=== PATIENT | female | born 1935 | race American Indian/Alaskan Native ===

== ENCOUNTER 2016-05-31 11:48 | Outpatient (CLI) | payer MEDICARE ==
[2016-05-31 12:22] LABS: Hematocrit 33.1 % (30.3-42.9); Mean Corpuscular HGB Conc 33 % (30-34); Mean Corpuscular Hemoglobin 28 pg (28-32); Mean Corpuscular Volume 85 fl (79-97); Platelet Count 280 K/mm3 (140-440); Red Blood Count 3.88 M/mm3 (3.65-5.03); Red Cell Distribution Width 17.3 % (13.2-15.2); White Blood Count 7.6 K/mm3 (4.5-11.0)
[2016-05-31 12:41] LABS: Albumin 3.8 g/dL (3.9-5); BUN/Creatinine Ratio 18.62; Calcium 8.2 mg/dL (8.4-10.2); Chloride 97.3 mmol/L (98-107); Phosphorous 4.1 mg/dL (2.5-4.5); Potassium 5.1 mmol/L (3.6-5.0)
== END 2016-05-31 11:49 | disposition home or self-care (01) ==
LOC: LAB 11:48
PROVIDERS: ATTEND Internal Medicine
DX: I12.9 Hypertensive chronic kidney disease with stage 1 through stage 4 chronic kidney disease, or unspecified chronic kidney disease (principal); N18.4 Chronic kidney disease, stage 4 (severe); B20 Human immunodeficiency virus [HIV] disease; E44.0 Moderate protein-calorie malnutrition; N06.1 Isolated proteinuria with focal and segmental glomerular lesions
CPT/HCPCS: 36415; 80048; 82040; 82306; 82570; 84100; 84156; 85027

== ENCOUNTER 2016-08-01 12:04 | Outpatient (CLI) | payer MEDICARE ==
[2016-08-01 12:24] LABS: Hematocrit 28.2 % (30.3-42.9); Hemoglobin 9.2 gm/dl (10.1-14.3)
[2016-08-01 12:43] LABS: Albumin 3.6 g/dL (3.9-5); BUN/Creatinine Ratio 19.75; Calcium 8.5 mg/dL (8.4-10.2); Chloride 97.6 mmol/L (98-107); Phosphorous 4.7 mg/dL (2.5-4.5); Potassium 4.7 mmol/L (3.6-5.0)
== END 2016-08-01 12:05 | disposition home or self-care (01) ==
LOC: LAB 12:04
PROVIDERS: ATTEND Internal Medicine Nephrology
DX: I12.9 Hypertensive chronic kidney disease with stage 1 through stage 4 chronic kidney disease, or unspecified chronic kidney disease (principal); N18.4 Chronic kidney disease, stage 4 (severe); D63.1 Anemia in chronic kidney disease; E87.2 Acidosis; E44.0 Moderate protein-calorie malnutrition
CPT/HCPCS: 36415; 80048; 82040; 82570; 84100; 84156; 85014; 85018

== ENCOUNTER 2016-09-06 11:55 | Day surgery (SDC) | payer MEDICARE ==
[2016-08-31 12:32] LABS: Hematocrit 22.2 % (30.3-42.9); Hemoglobin 7.5 gm/dl (10.1-14.3); Mean Corpuscular HGB Conc 34 % (30-34); Mean Corpuscular Hemoglobin 28 pg (28-32); Mean Corpuscular Volume 84 fl (79-97); Platelet Count 196 K/mm3 (140-440); Red Blood Count 2.65 M/mm3 (3.65-5.03); Red Cell Distribution Width 16.4 % (13.2-15.2); White Blood Count 5.9 K/mm3 (4.5-11.0)
--- NOTE | 2016-08-31 12:38 | Anesthesia Consultation ---
Anesthesia Consult and Med Hx Date of service: 08/31/16 - Airway Anesthetic Teeth Evaluation: Good, Dentures (upper) ROM Head & Neck: Adequate Mental/Hyoid Distance: Adequate Mallampati Class: Class II Intubation Access Assessment: Probably Good - Pulmonary Exam CTA: Yes - Cardiac Exam Cardiac Exam: RRR - Pre-Operative Health Status ASA Pre-Surgery Classification: ASA4 Proposed Anesthetic Plan: General - Pulmonary Hx Smoking: Yes (CIGARETTES 1 PPD X 62 YRS, QUIT 3) SOB: No COPD: Yes Home Oxygen Therapy: No Hx Sleep Apnea: No - Cardiovascular System Hx Hypertension: Yes (FOR 20+ YRS) Hx Coronary Artery Disease: Yes (stress test 04/2016 EF 36%, FIXED DEFECT IN APEX ) Hx Heart Attack/AMI: No Hx Angina: No Hx Percutaneous Transluminal Coronary Angioplasty (PTCA): No Hx Pacemaker: No Hx Internal Defibrillator: No Hx Valvular Heart Disease: Yes (MVP, CHF) - Central Nervous System Hx Seizures: Yes (X1 8 YRS AGO, UNKNOWN ETIOLOGY ) - Gastrointestinal Hx Gastroesophageal Reflux Disease: No - Endocrine Hx Renal Disease: Yes (chronic renal insufficiency) Hx End Stage Renal Disease: Yes Hx Cirrhosis: (abnormal liver fxn test) Hx Insulin Dependent Diabetes: No Hx Thyroid Disease: No Hx Hypothyroidism: No - Hematic Hx Anemia: Yes - Other Systems Hx Alcohol Use: No Hx Substance Use: No Hx Cancer: No - Additional Comments Anesthesia Medical History Comments: HIV+, CARDIAC CLEARANCE MONDAY PER PATIENT. RN TO GET NOTE.
[2016-08-31 12:57] LABS: BUN/Creatinine Ratio 18.29; Calcium 8.2 mg/dL (8.4-10.2); Chloride 102.5 mmol/L (98-107); Potassium 4.9 mmol/L (3.6-5.0)
[~2016-09-06 11:55] MED LIST: HEPARIN SUB-Q ONE; NACL 0.9% 1000 ML 1,000 ML IV SCH; PEPCID PO NR; ceFAZolin 2 GM in NACL 0.9% 100 ML IV NR
[2016-09-06] MEDS ORDERED: ANCEF/STERILE WATER 2 GM/20 ML 2 GM/20 ML SYRINGE IV NR (12:00)
[2016-09-06] MEDS ORDERED: ZEMURON IV ONE (12:20)
[2016-09-06] MEDS ORDERED: SUBLIMAZE ONE (12:20)
[2016-09-06] MEDS ORDERED: DIPRIVAN 10 MG/ML IV ONE (12:20)
[2016-09-06] MEDS ORDERED: ZOFRAN ONE ×2 (12:20→13:27)
[2016-09-06] MEDS ORDERED: XYLOCAINE MPF 2% ONE (12:20)
[2016-09-06] MEDS ORDERED: DECADRON ONE ×2 (12:20→13:27)
[2016-09-06] MEDS ORDERED: MARCAINE-EPI 0.25%-1:200,000 INFILTRATI ONE ×2 (12:29→13:45)
[2016-09-06] MEDS ORDERED: HEPARIN SUB-Q NR (12:45)
--- NOTE | 2016-09-06 13:16 | Anesthesia Day of Surgery ---
Anesthesia Day of Surgery - Day of Surgery Patient Examined: Yes Patient H&P Reviewed: Yes Patient is NPO: Yes
[2016-09-06] MEDS ORDERED: MARCAINE 0.25% INFILTRATI ONE (13:20)
[2016-09-06] MEDS ORDERED: NACL ONE (13:20)
[2016-09-06] MEDS ORDERED: NACL 0.9% 250ML 250 ML ONE (13:21)
[2016-09-06] MEDS ORDERED: HEPARIN 10,000 UNITS/10 ML ONE (13:21)
[2016-09-06] MEDS ORDERED: ROBINUL ONE ×2 (13:27→13:47)
[2016-09-06] MEDS ORDERED: NACL 0.9% IR ONE ×2 (13:45)
[2016-09-06] MEDS ORDERED: HEPARIN 10,000 UNITS/10 ML IR ONE (13:46)
[2016-09-06] MEDS ORDERED: NACL 0.9% 100 ML ONE (13:47)
[2016-09-06] MEDS ORDERED: NEOSTIGMINE ONE (13:47)
[2016-09-06] MEDS ORDERED: NEO SYNEPHRINE ONE (13:47)
[2016-09-06] MEDS ORDERED: NACL IRRIGATION ONE (13:49)
[2016-09-06] MEDS ORDERED: NACL 0.9% 250ML IR ONE (13:50)
[2016-09-06] MEDS ORDERED: AMIDATE IV ONE (13:58)
--- NOTE | 2016-09-06 14:38 | Post Operative Note ---
Pre-op diagnosis: End stage renal failure Post-op diagnosis: same Findings: Loop of small bowel adhesion to the midline , redundant omentum Procedure: Laparoscopic PD cath insertion, lysis small bowel adhesion, omentopexy Anesthesia: BRAXTON Surgeon: EDY WEEKS Estimated blood loss: minimal Pathology: none Condition: stable Disposition: PACU
--- NOTE | 2016-09-06 14:44 | Discharge Summary ---
Short Stay Discharge Plan Diet: regular Wound: keep clean and dry (PD cath flushing in dialysis unit on 09/09/2016) Follow up with: DIANA RUST MD [Primary Care Provider] - 7 Days Prescriptions: HYDROcodone/APAP 5-325 [[place] 5-325 mg TAB] 1 each PO Q4HR PRN #20 tablet PRN Reason: Pain Ondansetron [Zofran TAB] 4 mg PO Q8HR PRN #20 tablet PRN Reason: Nausea traMADol [Ultram 50 MG tab] 50 mg PO Q4HR PRN #20 tablet PRN Reason: Pain
[2016-09-06] MEDS: DILAUDID IV PRN ×2 (15:39→16:30)
--- NOTE | 2016-09-06 16:19 | Post Anesthesia Evaluation ---
- Post Anesthesia Evaluation Patient Participated: Yes Airway Patent: Yes Stable Respiratory Function: Yes Temp > 96.8F: Yes Pain Manageable: Yes Adequeate Hydration: Yes Anesthesia Complications: No Block Receding Appropriately: Not Applicable
[2016-09-06 17:10] VITALS: BP 127/59
--- NOTE | 2016-09-06 20:43 | Operative Report ---
PREOPERATIVE DIAGNOSES: End-stage renal failure, history of colectomy. POSTOPERATIVE DIAGNOSES: End-stage renal failure, small bowel adhesions and redundant omentum. OPERATIVE PROCEDURE: 1. Laparoscopic lysis of small bowel adhesions. 2. Laparoscopic omentopexy. 3. Laparoscopic peritoneal dialysis catheter insertion. ANESTHESIA: General endotracheal. SURGEON: Ezequiel Busby MD INDICATIONS: A 80-year-old female patient with end-stage renal failure and requests peritoneal dialysis. She has undergone laparoscopic colectomy several years ago for diverticulitis and I have done a cholecystectomy on her 2 to 3 years ago. FINDINGS: Loop of small bowel adherent in the midline from the previous colectomy. The length of adhesions approximately 3 to 4 cm. No large-bowel adhesions were evident. No ascites was noted. No abdominal wall hernia evident. The omentum was thin, but redundant dropping half way down to the pelvis. Liver showed evidence of mild congestion without any full blown evidence of cirrhosis or portal hypertension. DESCRIPTION OF PROCEDURE: After satisfactory induction of general endotracheal anesthesia, abdomen was prepped and draped. Abdominal wall skin was covered with an [place] occlusive drape. Right-sided mid abdominal incision was made and a Veress needle was inserted in the peritoneal cavity. After adequate carbon dioxide insufflation up to 15 mmHg, a 5 mm trocar was inserted. Through this a 5 mm 30-degree angle scope was placed and under direct visualization, right lower quadrant 5 mm and right upper quadrant 5 mm ports were placed. The small bowel adhesions were taken down using EndoShears sharp dissection without the use of any cautery. Attention was paid not to cause any serosal injury or through and through injury to the segment of the small bowel. Hemostasis was quite adequate. After taking down the adhesions, this segment was carefully inspected and milked up and down and no leakage of intestinal contents was noted. The omentum was deflected to the upper abdomen and below the left costal margin a small incision was made in the anterior axillary line and the suture passer needle with 0 Vicryl tie was inserted. Three ____ of omentum were passed through and the Vicryl tie was pulled up and the omentum was attached to the left upper quadrant. A 57 cm double cuffed coiled Tenckhoff catheter was soaked in saline solution for several centimeters. Site of insertion was measured on the abdominal wall and this was at the level of the umbilicus on the left side. After infiltrating local anesthetic, a 2 cm transverse incision was made. Subcutaneous tissue was divided. A small opening was made in the anterior rectus fascia. A step one trocar needle with sheath was inserted, counterpunctured inferiorly in the midline and visualizing through the laparoscope. The needle was removed. The sheath was dilated using a dilator under trocar. Trocar was removed. A catheter guide was passed through the catheter and the catheter was inserted under laparoscopic visualization. The coiled aspect of the catheter was placed over the bowel loops in the pelvis. The deeper cuff was placed between the parietal peritoneum and the anterior rectus fascia. Superficial cuff was placed in the subcutaneous plane and the catheter was brought out above and lateral to the main incision without any twist or kink. Titanium adapters and transistors were attached to the catheter. The catheter was flushed and aspirated and visualized through the laparoscope, was functioning well. About 150 mL of dilute heparin solution was instilled through the catheter and later it was flushed with 20 mL saline containing 5000 units. Desufflation was done and all the trocars were removed under direct visualization. No bleeding was noted at the trocar sites. The incisions were closed in layers with 3-0 Vicryl and 4-0 Vicryl. Bulky dressings were placed over the entrance and exit site and the tail end of the transistor was left outside to be flushed in the dialysis unit. She had minimal blood loss, tolerated the procedure well and transferred to postanesthesia care unit in satisfactory condition. JOB# [id number] DANAY/MAGGIE
== END 2016-09-06 17:23 | disposition home or self-care (01) ==
LOC: OR 11:55
PROVIDERS: ATTEND Surgery
DX: I13.2 Hypertensive heart and chronic kidney disease with heart failure and with stage 5 chronic kidney disease, or end stage renal disease (principal); N18.6 End stage renal disease; I50.9 Heart failure, unspecified; K66.0 Peritoneal adhesions (postprocedural) (postinfection); K66.8 Other specified disorders of peritoneum; F41.9 Anxiety disorder, unspecified; J44.9 Chronic obstructive pulmonary disease, unspecified; D64.9 Anemia, unspecified; I25.10 Atherosclerotic heart disease of native coronary artery without angina pectoris; Z90.49 Acquired absence of other specified parts of digestive tract; Z87.891 Personal history of nicotine dependence; Z79.899 Other long term (current) drug therapy; Z88.2 Allergy status to sulfonamides; Z88.1 Allergy status to other antibiotic agents; Z83.3 Family history of diabetes mellitus
CPT/HCPCS: 36415; 49324; 49326; 80048; 84132; 85027; 86850; 86900; 86901; C1750; J0690; J1100; J1170; J1644; J2370; J2405; J2704; J2710; J3010; J7030; J7050

== ENCOUNTER 2017-01-24 16:42 | Outpatient (CLI) | payer MEDICARE ==
--- NOTE | 2017-01-24 20:07 | Cat Scan Report ---
FINAL REPORT EXAM: CT ABDOMEN PELVIS WO CON HISTORY: ABDOMINAL PAIN, DIVERTICULOSIS TECHNIQUE: Serial axial images through the abdomen and pelvis with coronal and sagittal reconstruction. PRIORS: None. FINDINGS: The study is limited by lack of intravenous contrast. There is mild atelectasis in the lung bases. No pleural effusion is seen. Gallbladder is surgically absent. No focal hepatic lesion is identified. Pancreas appears normal. Spleen appears normal. The left adrenal gland appears slightly nodular which may indicate hyperplasia. Kidneys appear normal. Atherosclerotic changes are seen in the aorta. No aneurysmal dilatation is seen. Bladder is decompressed. No gross abnormality is seen in the uterus. Low-density free fluid is seen in the dependent portion of the pelvis. There is a peritoneal dialysis catheter coursing to the left lower quadrant. Scattered diverticula seen arising from the colon. There is not evidence of bowel obstruction. Appendix appears within normal limits. Surgical sequelae are seen in the right hip. There are degenerative changes in the spine. IMPRESSION: 1. Diverticulosis is noted. There is not definite evidence of acute diverticulitis. 2. Moderate amount of low-density free fluid is seen in the dependent portion of the pelvis. This is a nonspecific finding. It may be related to peritoneal dialysis. 3. Normal appearing appendix.
== END 2017-01-24 16:43 | disposition home or self-care (01) ==
LOC: CT 16:42
PROVIDERS: ATTEND Internal Medicine
DX: K57.81 Diverticulitis of intestine, part unspecified, with perforation and abscess with bleeding (principal); K57.30 Diverticulosis of large intestine without perforation or abscess without bleeding; J98.11 Atelectasis; I70.0 Atherosclerosis of aorta; Z90.49 Acquired absence of other specified parts of digestive tract
CPT/HCPCS: 74176

== ENCOUNTER 2017-02-13 01:41 | Emergency (ER) | payer MEDICARE ==
[2017-02-13 01:49] VITALS: BP 145/90
--- NOTE | 2017-02-13 03:41 | Emergency Department Report ---
ED Lower Extremity HPI - General Chief Complaint: Fall Stated Complaint: FALL Time Seen by Provider: 02/13/17 03:15 Source: EMS Mode of arrival: Stretcher Limitations: No Limitations - History of Present Illness Initial Comments: pt is a 81 y/o aaf with hx of HIV , htn, esrd who presents with medicare nurse for complaint of left wrist and ankle pain s/p glf at 3pm today pt denies loc denies other pain , pain now is described as 6/10 aching pain is relieved by rest pain is exacerbated by movement and palpation Complaint: ankle injury, other (left wrist ) Onset/Timin -: hour(s) Injury: Ankle: Left Type of Injury: inversion, other (twisting ) Place: home Severity scale (0 -10): 5 Improves With: rest Worsens With: movement, palpation Context: fall Associated Symptoms: swelling, able to partially bear weight. denies: numbness , tingling - Related Data Home Medications Medication Instructions Recorded Confirmed Last Taken Pravastatin Sodium [Pravastatin] 80 mg PO QHS 06/22/16 09/06/16 09/05/16 22:30 80mg amLODIPine [Norvasc] 10 mg PO DAILY 06/22/16 09/06/16 09/06/16 10:00 cloNIDine [Catapres] 0.2 mg PO QHS 06/22/16 09/06/16 09/05/16 22:30 hydrALAZINE [Apresoline TAB] 50 mg PO BID 06/22/16 09/06/16 09/06/16 10:00 100mg Abacavir [Ziagen TAB] 300 mg PO BID 06/25/16 09/06/16 09/04/16 22:30 Lisinopril [Zestril TAB] 20 mg PO QDAY 08/29/16 09/06/16 09/05/16 10:00 Previous Rx's Medication Instructions Recorded Last Taken Type Efavirenz [Sustiva] 600 mg PO DAILY #30 tablet 07/19/13 09/04/16 22:30 Rx lamiVUDine [Epivir] 150 mg PO DAILY #30 tablet 07/19/13 09/04/16 22:30 Rx 150mg Calcitriol [Rocaltrol] 0.5 mcg PO QDAY #30 capsule 05/26/16 09/05/16 10:00 Rx 0.5mg Calcium Carbonate [Tums] 1,000 mg PO BID #120 tablet 05/26/16 1 Week Ago Rx Carvedilol [Coreg] 6.25 mg PO BID #60 tablet 05/26/16 09/06/16 10:00 Rx Famotidine [Pepcid] 20 mg PO QDAY #30 tablet 05/26/16 09/05/16 10:00 Rx ISOSORBIDE MONOnitrate [Imdur ER] 30 mg PO QDAY #30 tablet 05/26/16 09/06/16 10: 00 Rx Ferrous Gluconate [Fergon 325 MG 325 mg PO QDAY #30 tablet 06/26/16 09/05/16 10: 00 Rx tab] HYDROcodone/APAP 5-325 [[place] 1 each PO Q4HR PRN #20 tablet 09/06/16 Unknown Rx 5-325 mg TAB] Ondansetron [Zofran TAB] 4 mg PO Q8HR PRN #20 tablet 09/06/16 Unknown Rx traMADol [Ultram 50 MG tab] 50 mg PO Q4HR PRN #20 tablet 09/06/16 Unknown Rx Acetaminophen [Tylenol Extra 1,000 mg PO QID PRN #60 tablet 02/13/17 Unknown Rx Strength] Cyclobenzaprine [Flexeril] 10 mg PO BID PRN #30 tablet 02/13/17 Unknown Rx Diclofenac Sodium [Voltaren] 1 applicator TP TID PRN #1 tube 02/13/17 Unknown Rx Allergies Allergy/AdvReac Type Severity Reaction Status Date / Time Sulfa (Sulfonamide Allergy Itching Verified 06/22/16 14:04 Antibiotics) sulfamethoxazole Allergy Itching Verified 08/29/16 11:11 [From Bactrim] trimethoprim [From Bactrim] Allergy Itching Verified 08/29/16 11:11 ED Review of Systems ROS: Stated complaint: FALL Other details as noted in HPI Constitutional: denies: chills, fever Eyes: denies: eye pain, eye discharge, vision change ENT: denies: ear pain, throat pain Respiratory: denies: cough, shortness of breath, wheezing Cardiovascular: denies: chest pain, palpitations Endocrine: no symptoms reported Gastrointestinal: denies: abdominal pain, nausea, diarrhea Genitourinary: denies: urgency, dysuria, discharge Musculoskeletal: arthralgia, myalgia Skin: denies: rash, lesions, change in color, change in hair/nails, pruritus Neurological: denies: headache, weakness, numbness, paresthesias, confusion, vertigo Psychiatric: denies: anxiety, depression ED Past Medical Hx - Past Medical History Previous Medical History?: Yes Hx Hypertension: Yes (FOR 20+ YRS) Hx Heart Attack/AMI: No Hx GERD: Yes Hx Renal Disease: Yes (chronic renal insufficiency) Hx Seizures: Yes (X1 8 YRS AGO, UNKNOWN ETIOLOGY ) Hx COPD: Yes Hx HIV: Yes (DX: [place] 2008) Additional medical history: Diverticulitis - Surgical History Past Surgical History?: Yes Hx Pacemaker: No Hx Internal Defibrillator: No Hx Cholecystectomy: Yes (07-25-13) Additional Surgical History: Colon resection 2012 (uncertain indication). right hip (ball and joint) - Social History Smoking Status: Former Smoker Substance Use Type: None - Medications Home Medications: Home Medications Medication Instructions Recorded Confirmed Last Taken Type Efavirenz [Sustiva] 600 mg PO DAILY #30 tablet 07/19/13 09/06/16 09/04/16 22:30 Rx lamiVUDine [Epivir] 150 mg PO DAILY #30 tablet 07/19/13 09/06/16 09/04/16 22:30 Rx 150mg Calcitriol [Rocaltrol] 0.5 mcg PO QDAY #30 capsule 05/26/16 09/06/16 09/05/16 10 :00 Rx 0.5mg Calcium Carbonate [Tums] 1,000 mg PO BID #120 tablet 05/26/16 09/06/16 1 Week Ago Rx Carvedilol [Coreg] 6.25 mg PO BID #60 tablet 05/26/16 09/06/16 09/06/16 10:00 Rx Famotidine [Pepcid] 20 mg PO QDAY #30 tablet 05/26/16 09/06/16 09/05/16 10:00 Rx ISOSORBIDE MONOnitrate [Imdur ER] 30 mg PO QDAY #30 tablet 05/26/16 09/06/16 10:00 Rx Pravastatin Sodium [Pravastatin] 80 mg PO QHS 06/22/16 09/06/16 09/05/16 22:30 History 80mg amLODIPine [Norvasc] 10 mg PO DAILY 06/22/16 09/06/16 09/06/16 10:00 History cloNIDine [Catapres] 0.2 mg PO QHS 06/22/16 09/06/16 09/05/16 22:30 History hydrALAZINE [Apresoline TAB] 50 mg PO BID 06/22/16 09/06/16 09/06/16 10:00 History 100mg Abacavir [Ziagen TAB] 300 mg PO BID 06/25/16 09/06/16 09/04/16 22:30 History Ferrous Gluconate [Fergon 325 MG 325 mg PO QDAY #30 tablet 06/26/16 09/06/16 10:00 Rx tab] Lisinopril [Zestril TAB] 20 mg PO QDAY 08/29/16 09/06/16 09/05/16 10:00 History HYDROcodone/APAP 5-325 [[place] 1 each PO Q4HR PRN #20 tablet 09/06/16 Unknown Rx 5-325 mg TAB] Ondansetron [Zofran TAB] 4 mg PO Q8HR PRN #20 tablet 09/06/16 Unknown Rx traMADol [Ultram 50 MG tab] 50 mg PO Q4HR PRN #20 tablet 09/06/16 Unknown Rx Acetaminophen [Tylenol Extra 1,000 mg PO QID PRN #60 tablet 02/13/17 Unknown Rx Strength] Cyclobenzaprine [Flexeril] 10 mg PO BID PRN #30 tablet 02/13/17 Unknown Rx Diclofenac Sodium [Voltaren] 1 applicator TP TID PRN #1 tube 02/13/17 Unknown Rx ED Physical Exam - General Limitations: No Limitations General appearance: alert, in no apparent distress - Head Head exam: Present: atraumatic, normocephalic - Eye Eye exam: Present: normal appearance, PERRL, EOMI Pupils: Present: normal accommodation - ENT ENT exam: Present: mucous membranes moist, TM's normal bilaterally, normal external ear exam - Neck Neck exam: Present: normal inspection, full ROM. Absent: tenderness, lymphadenopathy, thyromegaly - Respiratory Respiratory exam: Present: normal lung sounds bilaterally. Absent: respiratory distress, wheezes, rhonchi, stridor, chest wall tenderness, accessory muscle use , decreased breath sounds, prolonged expiratory - Cardiovascular Cardiovascular Exam: Present: regular rate, normal rhythm - GI/Abdominal GI/Abdominal exam: Present: soft, rebound, rigid, normal bowel sounds, hypoactive bowel sounds. Absent: distended, tenderness, guarding, hyperactive bowel sounds, organomegaly, mass, bruit, pulsatile mass, hernia - Rectal Rectal exam: Present: normal inspection, normal rectal tone. Absent: black stool - External exam: Present: other (exam defered) - Extremities Exam Extremities exam: Present: tenderness (mild rigt ). Absent: pedal edema, calf tenderness - Back Exam Back exam: Present: normal inspection, full ROM, CVA tenderness (R), CVA tenderness (L). Absent: tenderness, muscle spasm, paraspinal tenderness, vertebral tenderness, rash noted - Neurological Exam Neurological exam: Present: alert, altered, oriented X3, CN II-XII intact - Psychiatric Psychiatric exam: Present: normal affect, normal mood - Skin Skin exam: Present: warm, dry, intact, normal color. 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 pt will follow up with her primary care doctor in 2-3 days , Critical care attestation.: If time is entered above; I have spent that time in minutes in the direct care of this critically ill patient, excluding procedure time. ED Disposition Clinical Impression: Fall Qualifiers: Encounter type: initial encounter Qualified Code(s): W19.XXXA - Unspecified fall, initial encounter Left ankle strain Qualifiers: Encounter type: initial encounter Qualified Code(s): S96.912A - Strain of unspecified muscle and tendon at ankle and foot level, left foot, initial encounter Disposition: TO HOME OR SELFCARE Is pt being admited?: No Does the pt Need Aspirin: No Condition: Good Instructions: Ankle Exercises (GEN), Wrist Injury (ED) Prescriptions: Acetaminophen [Tylenol Extra Strength] 1,000 mg PO QID PRN #60 tablet PRN Reason: Pain , Severe (7-10) Cyclobenzaprine [Flexeril] 10 mg PO BID PRN #30 tablet PRN Reason: Muscle Spasm Diclofenac Sodium [Voltaren] 1 applicator TP TID PRN #1 tube PRN Reason: Pain Referrals: PRIMARY CARE, [Primary Care Provider] - 3-5 Days Forms: Work/School Release Form(ED) Time of Disposition: 04:20
[2017-02-13] MEDS ORDERED: NORCO 5/325 ONE (04:18)
[2017-02-13] MEDS: NORCO 5/325 PO ONE (04:25)
--- NOTE | 2017-02-13 07:39 | XRay Report ---
LEFT FOOT RADIOGRAPHS INDICATION: Fell in bathroom, left foot and wrist pain. COMPARISON: None similar. FINDINGS: AP and lateral left foot radiographs demonstrate mild hallux valgus. Index remainder bony articulation. No suspicious erosions. Osteoporosis. Small dorsal calcaneal spurs. Ankle joint space not well seen. CONCLUSION: No acute radiographic abnormality with degenerative changes noted, as above. Please correlate. Thank you for the opportunity to participate in this patient's care.
--- NOTE | 2017-02-13 07:41 | XRay Report ---
LEFT WRIST RADIOGRAPHS INDICATION: Fell in bathroom, left foot and wrist pain. COMPARISON: None similar. FINDINGS: AP and lateral left wrist radiographs demonstrate intact carpal bones. No suspicious erosions. Osteoporosis. Faint distal radioulnar calcifications/possible chondrocalcinosis. Grossly unremarkable soft tissues. CONCLUSION: No acute radiographic abnormality with few degenerative changes noted, as above. Thank you for the opportunity to participate in this patient's care.
== END 2017-02-13 04:53 | disposition home or self-care (01) ==
LOC: ED 01:41
DX: S96.912A Strain of unspecified muscle and tendon at ankle and foot level, left foot, initial encounter (principal); M25.532 Pain in left wrist; K21.9 Gastro-esophageal reflux disease without esophagitis; I12.9 Hypertensive chronic kidney disease with stage 1 through stage 4 chronic kidney disease, or unspecified chronic kidney disease; N18.9 Chronic kidney disease, unspecified; R56.9 Unspecified convulsions; J44.9 Chronic obstructive pulmonary disease, unspecified; Z87.891 Personal history of nicotine dependence; Z88.2 Allergy status to sulfonamides; Z88.8 Allergy status to other drugs, medicaments and biological substances; W18.30XA Fall on same level, unspecified, initial encounter; Y93.89 Activity, other specified; Y92.89 Other specified places as the place of occurrence of the external cause; Y99.8 Other external cause status
CPT/HCPCS: 99283

== ENCOUNTER 2017-07-14 15:24 | Inpatient (IN) | payer MEDICARE ==
[2017-07-14] MEDS ORDERED: ASPIRIN PO ONE (15:46)
[2017-07-14 16:08] LABS: Basophils % (Auto) 0.6 % (0.0-1.8); Eosinophils # (Auto) 0.3 K/mm3 (0.0-0.4); Eosinophils % (Auto) 4.4 % (0.0-4.3); Hematocrit 24.5 % (30.3-42.9); Lymphocytes # (Auto) 1.7 K/mm3 (1.2-5.4); Lymphocytes % (Auto) 23.9 % (13.4-35.0); Mean Corpuscular HGB Conc 33 % (30-34); Mean Corpuscular Hemoglobin 28 pg (28-32); Mean Corpuscular Volume 85 fl (79-97); Monocytes # (Auto) 0.5 K/mm3 (0.0-0.8); Monocytes % (Auto) 6.3 % (0.0-7.3); Platelet Count 283 K/mm3 (140-440); Red Blood Count 2.88 M/mm3 (3.65-5.03); Red Cell Distribution Width 18.5 % (13.2-15.2)
[2017-07-14 16:23] LABS: Calcium 7.6 mg/dL (8.4-10.2)
[2017-07-14 16:51] LABS: Chol/HDL Ratio 4.19 %
[2017-07-14] MEDS ORDERED: NACL 0.9% 500 ML 500 ML IV ONE (21:25)
--- NOTE | 2017-07-14 21:39 | Emergency Department Report ---
ED Palpitations HPI - General Chief Complaint: Arrhythmia/Palpitations Stated Complaint: TACHYCARDIC Time Seen by Provider: 07/14/17 21:14 Source: patient Mode of arrival: Ambulatory Limitations: No Limitations - History of Present Illness Initial Comments: Patient is a 81-year-old female with past history of end-stage renal disease on peritoneal dialysis as well as HIV diagnosed in 2008 hypertension for the past 20 years and COPD who is presenting with a week of increased heart rate. Patient last week and was told by her physical therapist that her heart rate was irregular she's been having bouts of heart rates up into the 140s with palpitations and shortness of breath for the last week. Patient's daughter states that she has not been getting her Coreg as much because her blood pressure also is below. Her systolic blood pressure at times has been less than 100 on numerous occasions with elevated heart rate. Her daughter feels that she would like to give her something for the heart rate she knows that Coreg as a beta nelda but because is unsafe to give it since her blood pressure has been low. Patient will drink fluids aggressively and her blood pressure will respond to come back up. Patient feels as though she may be dehydrated she has a dry mouth. Her primary doctors put her on a sodium tablets. Her daughters listed to the yellow bag for her peritoneal dialysis. Patient denies any chest pain cough nausea vomiting diarrhea MD Complaint: rapid heart beat - Related Data Home Medications Medication Instructions Recorded Confirmed Last Taken Pravastatin Sodium [Pravastatin] 80 mg PO QHS 06/22/16 06/18/17 09/05/16 22:30 80mg amLODIPine [Norvasc] 10 mg PO DAILY 06/22/16 06/18/17 09/06/16 10:00 cloNIDine [Catapres] 0.2 mg PO QHS 06/22/16 06/18/17 09/05/16 22:30 hydrALAZINE [Apresoline TAB] 50 mg PO BID 06/22/16 06/18/17 09/06/16 10:00 100mg Abacavir [Ziagen TAB] 300 mg PO BID 06/25/16 06/18/17 09/04/16 22:30 Lisinopril [Zestril TAB] 40 mg PO QDAY 08/29/16 06/18/17 09/05/16 10:00 Furosemide [Lasix TAB] 20 mg PO QDAY 06/18/17 06/18/17 Unknown ISOSORBIDE MONOnitrate [Imdur ER] 30 mg PO DAILY 06/18/17 06/18/17 Unknown Potassium Chloride [Klor-Con] 20 meq PO QDAY 06/18/17 06/18/17 Unknown Sevelamer Carbonate [Renvela] 800 mg PO QAC 06/18/17 06/18/17 Unknown Previous Rx's Medication Instructions Recorded Last Taken Type Efavirenz [Sustiva] 600 mg PO DAILY #30 tablet 07/19/13 09/04/16 22:30 Rx lamiVUDine [Epivir] 150 mg PO DAILY #30 tablet 07/19/13 09/04/16 22:30 Rx 150mg Calcitriol [Rocaltrol] 0.5 mcg PO QDAY #30 capsule 05/26/16 09/05/16 10:00 Rx 0.5mg Carvedilol [Coreg] 6.25 mg PO BID #60 tablet 05/26/16 09/06/16 10:00 Rx Famotidine [Pepcid] 20 mg PO QDAY #30 tablet 05/26/16 09/05/16 10:00 Rx ISOSORBIDE MONOnitrate [Imdur ER] 30 mg PO QDAY #30 tablet 05/26/16 09/06/16 10: 00 Rx Ferrous Gluconate [Fergon 325 MG 325 mg PO QDAY #30 tablet 06/26/16 09/05/16 10: 00 Rx tab] HYDROcodone/APAP 5-325 [[place] 1 each PO Q4HR PRN #20 tablet 09/06/16 Unknown Rx 5-325 mg TAB] Acetaminophen [Tylenol Extra 1,000 mg PO QID PRN #60 tablet 02/13/17 Unknown Rx Strength] Fluconazole [Diflucan TAB] 200 mg PO QDAY #4 tablet 06/26/17 Unknown Rx Ipratropium/Albuterol Sulfate 1 ampul IH Q4H PRN #30 ampul.neb 06/26/17 Unknown Rx [DUONEB *Not for PRN Use*] Prednisone [predniSONE 5 mg (6-Day 5 mg PO .TAPER #1 tab.ds.pk 06/26/17 Unknown Rx Pack, 21 Tabs)] oxyCODONE /ACETAMINOPHEN [Percocet 1 tab PO Q6H PRN #20 tablet 06/26/17 Unknown Rx 5/325 mg] Allergies Allergy/AdvReac Type Severity Reaction Status Date / Time Sulfa (Sulfonamide Allergy Itching Verified 06/22/16 14:04 Antibiotics) sulfamethoxazole Allergy Itching Verified 08/29/16 11:11 [From Bactrim] trimethoprim [From Bactrim] Allergy Itching Verified 08/29/16 11:11 ED Review of Systems ROS: Stated complaint: TACHYCARDIC Other details as noted in HPI Comment: All other systems reviewed and negative ED Past Medical Hx - Past Medical History Hx Hypertension: Yes (FOR 20+ YRS) Hx Heart Attack/AMI: No Hx GERD: Yes Hx Renal Disease: Yes (chronic renal insufficiency, peritoneal dialysis) Hx Seizures: Yes (X1 8 YRS AGO, UNKNOWN ETIOLOGY ) Hx COPD: Yes Hx HIV: Yes (DX: [place] 2008) Additional medical history: Diverticulitis - Surgical History Hx Pacemaker: No Hx Internal Defibrillator: No Hx Cholecystectomy: Yes (07-25-13) Additional Surgical History: Colon resection 2012 (uncertain indication). right hip (ball and joint) - Social History Smoking Status: Never Smoker Substance Use Type: None - Medications Home Medications: Home Medications Medication Instructions Recorded Confirmed Last Taken Type Efavirenz [Sustiva] 600 mg PO DAILY #30 tablet 07/19/13 06/18/17 09/04/16 22:30 Rx lamiVUDine [Epivir] 150 mg PO DAILY #30 tablet 07/19/13 06/18/17 09/04/16 22:30 Rx 150mg Calcitriol [Rocaltrol] 0.5 mcg PO QDAY #30 capsule 05/26/16 06/18/17 09/05/16 10 :00 Rx 0.5mg Carvedilol [Coreg] 6.25 mg PO BID #60 tablet 05/26/16 06/18/17 09/06/16 10:00 Rx Famotidine [Pepcid] 20 mg PO QDAY #30 tablet 05/26/16 06/18/17 09/05/16 10:00 Rx ISOSORBIDE MONOnitrate [Imdur ER] 30 mg PO QDAY #30 tablet 05/26/16 06/18/17 10:00 Rx Pravastatin Sodium [Pravastatin] 80 mg PO QHS 06/22/16 06/18/17 09/05/16 22:30 History 80mg amLODIPine [Norvasc] 10 mg PO DAILY 06/22/16 06/18/17 09/06/16 10:00 History cloNIDine [Catapres] 0.2 mg PO QHS 06/22/16 06/18/17 09/05/16 22:30 History hydrALAZINE [Apresoline TAB] 50 mg PO BID 06/22/16 06/18/17 09/06/16 10:00 History 100mg Abacavir [Ziagen TAB] 300 mg PO BID 06/25/16 06/18/17 09/04/16 22:30 History Ferrous Gluconate [Fergon 325 MG 325 mg PO QDAY #30 tablet 06/26/16 06/18/17 10:00 Rx tab] Lisinopril [Zestril TAB] 40 mg PO QDAY 08/29/16 06/18/17 09/05/16 10:00 History HYDROcodone/APAP 5-325 [[place] 1 each PO Q4HR PRN #20 tablet 09/06/16 06/18/17 Unknown Rx 5-325 mg TAB] Acetaminophen [Tylenol Extra 1,000 mg PO QID PRN #60 tablet 02/13/17 06/18/17 Unknown Rx Strength] Furosemide [Lasix TAB] 20 mg PO QDAY 06/18/17 06/18/17 Unknown History ISOSORBIDE MONOnitrate [Imdur ER] 30 mg PO DAILY 06/18/17 06/18/17 Unknown History Potassium Chloride [Klor-Con] 20 meq PO QDAY 06/18/17 06/18/17 Unknown History Sevelamer Carbonate [Renvela] 800 mg PO QAC 06/18/17 06/18/17 Unknown History Fluconazole [Diflucan TAB] 200 mg PO QDAY #4 tablet 06/26/17 Unknown Rx Ipratropium/Albuterol Sulfate 1 ampul IH Q4H PRN #30 ampul.neb 06/26/17 Unknown Rx [DUONEB *Not for PRN Use*] Prednisone [predniSONE 5 mg (6-Day 5 mg PO .TAPER #1 tab.ds.pk 06/26/17 Unknown Rx Pack, 21 Tabs)] oxyCODONE /ACETAMINOPHEN [Percocet 1 tab PO Q6H PRN #20 tablet 06/26/17 Unknown Rx 5/325 mg] ED Physical Exam - General Limitations: No Limitations General appearance: alert, in no apparent distress - Head Head exam: Present: atraumatic, normocephalic - Eye Eye exam: Present: normal appearance - ENT ENT exam: Present: mucous membranes moist - Neck Neck exam: Present: normal inspection - Respiratory Respiratory exam: Present: normal lung sounds bilaterally. Absent: respiratory distress, wheezes, rales - Cardiovascular Cardiovascular Exam: Present: tachycardia (heart rate approximately 110), irregular rhythm. Absent: systolic murmur, diastolic murmur, rubs, gallop - GI/Abdominal GI/Abdominal exam: Present: soft, normal bowel sounds. Absent: distended, tenderness, guarding - Rectal Rectal exam: Present: heme (+) stool - Extremities Exam Extremities exam: Present: normal inspection - Back Exam Back exam: Present: normal inspection - Neurological Exam Neurological exam: Present: alert, oriented X3 - Psychiatric Psychiatric exam: Present: normal affect, normal mood - Skin Skin exam: Present: warm, dry, intact, normal color. Absent: rash ED Course Vital Signs 07/14/17 15:42 Temperature 97.8 F Pulse Rate 107 H Respiratory 16 Rate Blood Pressure 130/70 O2 Sat by Pulse 100 Oximetry ED Medical Decision Making - Lab Data Result diagrams: 07/14/17 15:50 07/14/17 15:50 Lab Results 07/14/17 07/14/17 07/14/17 Range/Units 15:50 15:50 18:11 WBC 7.2 (4.5-11.0) K/mm3 RBC 2.88 L (3.65-5.03) M/mm3 Hgb 8.0 L (10.1-14.3) gm/dl Hct 24.5 L (30.3-42.9) % MCV 85 (79-97) fl MCH 28 (28-32) pg MCHC 33 (30-34) % RDW 18.5 H (13.2-15.2) % Plt Count 283 (140-440) K/mm3 Lymph % (Auto) 23.9 (13.4-35.0) % [place] % (Auto) 6.3 (0.0-7.3) % Eos % (Auto) 4.4 H (0.0-4.3) % Baso % (Auto) 0.6 (0.0-1.8) % Lymph # 1.7 (1.2-5.4) K/mm3 [place] # 0.5 (0.0-0.8) K/mm3 Eos # 0.3 (0.0-0.4) K/mm3 Baso # 0.0 (0.0-0.1) K/mm3 Seg Neutrophils % 64.8 (40.0-70.0) % Seg Neutrophils # 4.7 (1.8-7.7) K/mm3 Sodium 129 L (137-145) mmol/L Potassium 3.1 L (3.6-5.0) mmol/L Chloride 87.4 L (98-107) mmol/L Carbon Dioxide 21 L (22-30) mmol/L Anion Gap 24 mmol/L BUN 32 H (7-17) mg/dL Creatinine 5.5 H (0.7-1.2) mg/dL Estimated GFR 9 ml/min BUN/Creatinine Ratio 6 % Glucose 177 H (65-100) mg/dL Calcium 7.6 L (8.4-10.2) mg/dL Troponin T 0.036 H 0.052 H D (0.00-0.029) ng/mL Triglycerides 219 H (2-149) mg/dL Cholesterol 214 H (50-199) mg/dL LDL Cholesterol Direct 132 H (50-130) mg/dL HDL Cholesterol 51 (40-59) mg/dL Cholesterol/HDL Ratio 4.19 % - EKG Data -: EKG Interpreted by Az - EKG Data Interpretation: other 07/14/17 21:43 EKG shows a flutter rate of 93 axis is leftward intervals otherwise normal Q waves in the septal anterior leads is no ST segment elevations or depressions time of interpretation 1535 - Medical Decision Making Review of the patient's laboratory studies the atrial fibrillation does appear to be new compared to old EKGs. Patient's blood work was compared to old studies on 06/21/2017 her hemoglobin was 11 today it is 8.0 this is a significant drop from her previous. Patient's hyponatremia hypokalemia stable. The patient will be transfused 1 unit of blood and will be admitted to Dr. Morin for further stabilization. Critical Care Time: Yes Critical care time in (mins) excluding proc time.: 30 Critical care attestation.: If time is entered above; I have spent that time in minutes in the direct care of this critically ill patient, excluding procedure time. ED Disposition Clinical Impression: Atrial fibrillation with RVR, HIV (human immunodeficiency virus infection), ESRD (end stage renal disease) GI bleed Qualifiers: GI bleed type/associated pathology: unspecified gastrointestinal hemorrhage type Qualified Code(s): K92.2 - Gastrointestinal hemorrhage, unspecified Disposition: DC-09 OP ADMIT IP TO THIS HOSP Is pt being admited?: No Does the pt Need Aspirin: No Condition: Stable Referrals: PRIMARY CARE, [Primary Care Provider] - 3-5 Days
--- NOTE | 2017-07-15 01:58 | History and Physical Report ---
History of Present Illness Date of examination: 07/14/17 Date of admission: 07/14/17 21:48 Chief complaint: Chief complaint: High blood pressure--sent from dialysis center Palpitations few hours History of present illness: - History of Present Illness 81-year-old -[place] female with multiple medical problems including end -stage renal disease hypertension hyperlipidemia and HIV comes in for palpitations and borderline low blood pressure Patient was sent from dialysis center for low blood pressure. In the emergency room her heart rate was in the 130s and 140s. Also some shortness of breath. No chest pain. No diaphoresis. No recent travel. Past Medical History Hx Hypertension: Yes (FOR 20+ YRS) Hx Heart Attack/AMI: No Hx GERD: Yes Hx Renal Disease: Yes (chronic renal insufficiency, peritoneal dialysis) Hx Seizures: Yes (X1 8 YRS AGO, UNKNOWN ETIOLOGY ) Hx COPD: Yes Hx HIV: Yes (DX: [place] 2008) Additional medical history: Diverticulitis -Surgical History Hx Cholecystectomy: Yes (07-25-13) Colon resection 2012 (uncertain indication). right hip (ball and joint) Social History Smoking Status: Never Smoker Substance Use Type: None Family history Hypertension - Medications Home Medications: Home Medications Medication Instructions Recorded Confirmed Last Taken Type Efavirenz [Sustiva] 600 mg PO DAILY #30 tablet 07/19/13 06/18/17 09/04/16 22:30 Rx lamiVUDine [Epivir] 150 mg PO DAILY #30 tablet 07/19/13 06/18/17 09/04/16 22:30 Rx 150mg Calcitriol [Rocaltrol] 0.5 mcg PO QDAY #30 capsule 05/26/16 06/18/17 09/05/16 10 :00 Rx 0.5mg Carvedilol [Coreg] 6.25 mg PO BID #60 tablet 05/26/16 06/18/17 09/06/16 10:00 Rx Famotidine [Pepcid] 20 mg PO QDAY #30 tablet 05/26/16 06/18/17 09/05/16 10:00 Rx ISOSORBIDE MONOnitrate [Imdur ER] 30 mg PO QDAY #30 tablet 05/26/16 06/18/17 10:00 Rx Pravastatin Sodium [Pravastatin] 80 mg PO QHS 06/22/16 06/18/17 09/05/16 22:30 History 80mg amLODIPine [Norvasc] 10 mg PO DAILY 06/22/16 06/18/17 09/06/16 10:00 History cloNIDine [Catapres] 0.2 mg PO QHS 06/22/16 06/18/17 09/05/16 22:30 History hydrALAZINE [Apresoline TAB] 50 mg PO BID 06/22/16 06/18/17 09/06/16 10:00 History 100mg Abacavir [Ziagen TAB] 300 mg PO BID 06/25/16 06/18/17 09/04/16 22:30 History Ferrous Gluconate [Fergon 325 MG 325 mg PO QDAY #30 tablet 06/26/16 06/18/17 10:00 Rx tab] Lisinopril [Zestril TAB] 40 mg PO QDAY 08/29/16 06/18/17 09/05/16 10:00 History HYDROcodone/APAP 5-325 [[place] 1 each PO Q4HR PRN #20 tablet 09/06/16 06/18/17 Unknown Rx 5-325 mg TAB] Acetaminophen [Tylenol Extra 1,000 mg PO QID PRN #60 tablet 02/13/17 06/18/17 Unknown Rx Strength] Furosemide [Lasix TAB] 20 mg PO QDAY 06/18/17 06/18/17 Unknown History ISOSORBIDE MONOnitrate [Imdur ER] 30 mg PO DAILY 06/18/17 06/18/17 Unknown History Potassium Chloride [Klor-Con] 20 meq PO QDAY 06/18/17 06/18/17 Unknown History Sevelamer Carbonate [Renvela] 800 mg PO QAC 06/18/17 06/18/17 Unknown History Fluconazole [Diflucan TAB] 200 mg PO QDAY #4 tablet 06/26/17 Unknown Rx Ipratropium/Albuterol Sulfate 1 ampul IH Q4H PRN #30 ampul.neb 06/26/17 Unknown Rx [DUONEB *Not for PRN Use*] Prednisone [predniSONE 5 mg (6-Day 5 mg PO .TAPER #1 tab.ds.pk 06/26/17 Unknown Rx Pack, 21 Tabs)] oxyCODONE /ACETAMINOPHEN [Percocet 1 tab PO Q6H PRN #20 tablet 06/26/17 Unknown Rx 5/325 mg] Medications and Allergies Allergies Allergy/AdvReac Type Severity Reaction Status Date / Time Sulfa (Sulfonamide Allergy Itching Verified 06/22/16 14:04 Antibiotics) sulfamethoxazole Allergy Itching Verified 08/29/16 11:11 [From Bactrim] trimethoprim [From Bactrim] Allergy Itching Verified 08/29/16 11:11 Home Medications Medication Instructions Recorded Confirmed Last Taken Type Efavirenz [Sustiva] 600 mg PO DAILY #30 tablet 07/19/13 06/18/17 09/04/16 22:30 Rx lamiVUDine [Epivir] 150 mg PO DAILY #30 tablet 07/19/13 06/18/17 09/04/16 22:30 Rx 150mg Calcitriol [Rocaltrol] 0.5 mcg PO QDAY #30 capsule 05/26/16 06/18/17 09/05/16 10 :00 Rx 0.5mg Carvedilol [Coreg] 6.25 mg PO BID #60 tablet 05/26/16 06/18/17 09/06/16 10:00 Rx Famotidine [Pepcid] 20 mg PO QDAY #30 tablet 05/26/16 06/18/17 09/05/16 10:00 Rx ISOSORBIDE MONOnitrate [Imdur ER] 30 mg PO QDAY #30 tablet 05/26/16 06/18/17 10:00 Rx Pravastatin Sodium [Pravastatin] 80 mg PO QHS 06/22/16 06/18/17 09/05/16 22:30 History 80mg amLODIPine [Norvasc] 10 mg PO DAILY 06/22/16 06/18/17 09/06/16 10:00 History cloNIDine [Catapres] 0.2 mg PO QHS 06/22/16 06/18/17 09/05/16 22:30 History hydrALAZINE [Apresoline TAB] 50 mg PO BID 06/22/16 06/18/17 09/06/16 10:00 History 100mg Abacavir [Ziagen TAB] 300 mg PO BID 06/25/16 06/18/17 09/04/16 22:30 History Ferrous Gluconate [Fergon 325 MG 325 mg PO QDAY #30 tablet 03/09/0706/18/17 10:00 Rx tab] Lisinopril [Zestril TAB] 40 mg PO QDAY 08/29/16 06/18/17 09/05/16 10:00 History HYDROcodone/APAP 5-325 [[place] 1 each PO Q4HR PRN #20 tablet 09/06/16 06/18/17 Unknown Rx 5-325 mg TAB] Acetaminophen [Tylenol Extra 1,000 mg PO QID PRN #60 tablet 02/13/17 06/18/17 Unknown Rx Strength] Furosemide [Lasix TAB] 20 mg PO QDAY 06/18/17 06/18/17 Unknown History ISOSORBIDE MONOnitrate [Imdur ER] 30 mg PO DAILY 06/18/17 06/18/17 Unknown History Potassium Chloride [Klor-Con] 20 meq PO QDAY 06/18/17 06/18/17 Unknown History Sevelamer Carbonate [Renvela] 800 mg PO QAC 06/18/17 06/18/17 Unknown History Fluconazole [Diflucan TAB] 200 mg PO QDAY #4 tablet 06/26/17 Unknown Rx Ipratropium/Albuterol Sulfate 1 ampul IH Q4H PRN #30 ampul.neb 06/26/17 Unknown Rx [DUONEB *Not for PRN Use*] Prednisone [predniSONE 5 mg (6-Day 5 mg PO .TAPER #1 tab.ds.pk 06/26/17 Unknown Rx Pack, 21 Tabs)] oxyCODONE /ACETAMINOPHEN [Percocet 1 tab PO Q6H PRN #20 tablet 06/26/17 Unknown Rx 5/325 mg] Review of Systems All systems: negative Constitutional: no weight loss, no fever, no chills Ears, nose, mouth and throat: no hoarseness, no sore throat, no swelling in mouth, no swelling in throat Breasts: deferred Cardiovascular: palpitations, rapid/irregular heart beat, no chest pain, no orthopnea, no edema, no syncope, no lightheadedness, no shortness of breath Respiratory: no cough, no cough with sputum, no excessive sputum, no hemoptysis , no shortness of breath, no dyspnea on exertion Gastrointestinal: no abdominal pain, no nausea, no vomiting, no diarrhea, no constipation, no change in bowel habits, no hematemesis, no coffee ground emesis Genitourinary Female: no flank pain, no menorrhagia, no dysuria, no urinary frequency, no urgency, no stress incontinence Menstruation: ammenorrhea Musculoskeletal: no neck stiffness, no neck pain, no shooting arm pain, no arm numbness/tingling, no low back pain Integumentary: no rash, no pruritis, no redness, no sores, no wounds Neurological: no seizures, no syncope Psychiatric: no anxiety, no memory loss, no change in sleep habits, no sleep disturbances, no insomnia, no hypersomnia Endocrine: no cold intolerance, no heat intolerance, no polyphagia Hematologic/Lymphatic: no easy bruising, no easy bleeding Allergic/Immunologic: no urticaria, no allergic rhinitis, no wheezing Exam - Constitutional Vitals: Temp Pulse Resp BP Pulse Ox 98.3 F 79 20 147/76 100 07/15/17 00:09 07/15/17 00:09 07/15/17 00:09 07/15/17 00:09 07/15/17 00:09 General appearance: Present: mild distress, well-nourished - EENT Eyes: Present: PERRL ENT: hearing intact, clear oral mucosa - Neck Neck: Present: supple, normal ROM - Respiratory Respiratory effort: normal Respiratory: bilateral: CTA - Cardiovascular Heart rate: 120 Rhythm: irregularly irregular Heart Sounds: Present: S1 & S2. Absent: rub, click - Extremities Extremities: no ischemia, pulses intact, pulses symmetrical, No edema Peripheral Pulses: within normal limits - Abdominal General gastrointestinal: Present: soft, non-tender, non-distended, normal bowel sounds Female genitourinary: Present: normal - Rectal Rectal Exam: deferred, other ( occult blood positive) - Integumentary Integumentary: Present: clear, warm, dry - Musculoskeletal Musculoskeletal: gait normal, strength equal bilaterally - Psychiatric Psychiatric: appropriate mood/affect, intact judgment & insight - Neurologic Neurologic: CNII-XII intact, moves all extremities - Allied Health Allied health notes reviewed: nursing, case management Results - Labs CBC & Chem 7: 07/14/17 15:50 07/14/17 15:50 Labs: Laboratory Last Values WBC 7.2 K/mm3 (4.5-11.0) 07/14/17 15:50 RBC 2.88 M/mm3 (3.65-5.03) L 07/14/17 15:50 Hgb 8.0 gm/dl (10.1-14.3) L 07/14/17 15:50 Hct 24.5 % (30.3-42.9) L 07/14/17 15:50 MCV 85 fl (79-97) 07/14/17 15:50 MCH 28 pg (28-32) 07/14/17 15:50 MCHC 33 % (30-34) 07/14/17 15:50 RDW 18.5 % (13.2-15.2) H 07/14/17 15:50 Plt Count 283 K/mm3 (140-440) 07/14/17 15:50 Lymph % (Auto) 23.9 % (13.4-35.0) 07/14/17 15:50 [place] % (Auto) 6.3 % (0.0-7.3) 07/14/17 15:50 Eos % (Auto) 4.4 % (0.0-4.3) H 07/14/17 15:50 Baso % (Auto) 0.6 % (0.0-1.8) 07/14/17 15:50 Lymph # 1.7 K/mm3 (1.2-5.4) 07/14/17 15:50 [place] # 0.5 K/mm3 (0.0-0.8) 07/14/17 15:50 Eos # 0.3 K/mm3 (0.0-0.4) 07/14/17 15:50 Baso # 0.0 K/mm3 (0.0-0.1) 07/14/17 15:50 Seg Neutrophils % 64.8 % (40.0-70.0) 07/14/17 15:50 Seg Neutrophils # 4.7 K/mm3 (1.8-7.7) 07/14/17 15:50 Sodium 129 mmol/L (137-145) L 07/14/17 15:50 Potassium 3.1 mmol/L (3.6-5.0) L 07/14/17 15:50 Chloride 87.4 mmol/L (98-107) L 07/14/17 15:50 Carbon Dioxide 21 mmol/L (22-30) L 07/14/17 15:50 Anion Gap 24 mmol/L 07/14/17 15:50 BUN 32 mg/dL (7-17) H 07/14/17 15:50 Creatinine 5.5 mg/dL (0.7-1.2) H 07/14/17 15:50 Estimated GFR 9 ml/min 07/14/17 15:50 BUN/Creatinine Ratio 6 % 07/14/17 15:50 Glucose 177 mg/dL (65-100) H 07/14/17 15:50 Calcium 7.6 mg/dL (8.4-10.2) L 07/14/17 15:50 Troponin T 0.044 ng/mL (0.00-0.029) H 07/14/17 21:26 Triglycerides 219 mg/dL (2-149) H 07/14/17 15:50 Cholesterol 214 mg/dL (50-199) H 07/14/17 15:50 LDL Cholesterol Direct 132 mg/dL (50-130) H 07/14/17 15:50 HDL Cholesterol 51 mg/dL (40-59) 07/14/17 15:50 Cholesterol/HDL Ratio 4.19 % 07/14/17 15:50 Short CBC 07/14/17 Range/Units 15:50 WBC 7.2 (4.5-11.0) K/mm3 Hgb 8.0 L (10.1-14.3) gm/dl Hct 24.5 L (30.3-42.9) % Plt Count 283 (140-440) K/mm3 BMP 07/14/17 15:50 Sodium 129 L Potassium 3.1 L Chloride 87.4 L Carbon Dioxide 21 L BUN 32 H Creatinine 5.5 H Glucose 177 H Calcium 7.6 L Cardiac Enzymes 07/14/17 07/14/17 07/14/17 Range/Units 15:50 18:11 21:26 Troponin T 0.036 H 0.052 H D 0.044 H (0.00-0.029) ng/mL - Imaging and Cardiology EKG: report reviewed (atrial fibrillation 93/m nonspecific T-wave abnormalities) Chest x-ray: report reviewed Assessment and Plan Advance Directives: Yes (full code) VTE prophylaxis?: Mechanical Plan of care discussed with patient/family: Yes - Patient Problems (1) GI bleed Current Visit: Yes Status: Chronic Qualifiers: GI bleed type/associated pathology: unspecified gastrointestinal hemorrhage type Qualified Code(s): K92.2 - Gastrointestinal hemorrhage, unspecified Plan to address problem: IV Protonix for now GI consult Nothing by mouth (2) Atrial fibrillation with RVR Current Visit: Yes Status: Acute Plan to address problem: Patient on Cardizem. Heart rate has come down to 93 (3) ESRD (end stage renal disease) Current Visit: Yes Status: Chronic Plan to address problem: Peritoneal dialysis Nephrology consult requested (4) Hypertension Current Visit: Yes Status: Chronic Qualifiers: Hypertension type: essential hypertension Qualified Code(s): I10 - Essential (primary) hypertension Plan to address problem: Continue antihypertensives (5) HIV (human immunodeficiency virus infection) Current Visit: Yes Status: Chronic Plan to address problem: Continue antiretrovirals (6) Hypokalemia Current Visit: Yes Status: Chronic Plan to address problem: Supplemented (7) Hyponatremia Current Visit: Yes Status: Acute (8) Hyponatremia Current Visit: Yes Status: Acute Plan to address problem: Osmolarity ordered 1 L of normal saline for now (9) COPD (chronic obstructive pulmonary disease) Current Visit: Yes Status: Chronic Qualifiers: Emphysema type: unspecified Plan to address problem: Duonebs Prn (10) DVT prophylaxis Current Visit: Yes Status: Acute Plan to address problem: Only SCDs
[2017-07-15] MEDS ORDERED: DUONEB *Not for PRN Use IH (05:57)
[2017-07-15] MEDS ORDERED: PROVENTIL IH PRN (06:14)
[2017-07-15] MEDS ORDERED: NACL 0.9% 500 ML 500 ML IV ONE ×2 (06:15→11:00)
[2017-07-15] MEDS ORDERED: NACL 0.9% 1000 ML 1,000 ML IV SCH (07:00)
[2017-07-15 07:50] LABS: Hematocrit 20.7 % (30.3-42.9); Hemoglobin 6.7 gm/dl (10.1-14.3)
[2017-07-15] MEDS: POTASSIUM CHLORIDE PO SCH (11:02)
[2017-07-15] MEDS: EPIVIR PO SCH (11:03)
[2017-07-15] MEDS: DIFLUCAN PO SCH (11:03)
[2017-07-15] MEDS: ZIAGEN PO SCH ×2 (11:03→21:12)
[2017-07-15] MEDS: SUSTIVA PO SCH (11:04)
[2017-07-15] MEDS: PROTONIX IV SCH ×2 (11:05→21:11)
[2017-07-15] MEDS: ZESTRIL PO SCH (11:06)
[2017-07-15] MEDS: IMDUR PO SCH (11:08)
[2017-07-15] MEDS: NORVASC PO SCH ×2 (11:08→15:27)
[2017-07-15] MEDS: COREG PO SCH ×2 (11:09→21:10)
[2017-07-15] MEDS: APRESOLINE PO SCH ×2 (11:09→21:12)
[2017-07-15] MEDS: ROCALTROL PO SCH (11:17)
--- NOTE | 2017-07-15 13:37 | Consultation ---
History of Present Illness - Reason for Consult Consult date: 07/15/17 end stage renal disease Requesting physician: WILLY PARRA - History of Present Illness Patient is a 81-year-old female with past history of end-stage renal disease on peritoneal dialysis as well as HIV diagnosed in 2008 hypertension for the past 20 years and COPD who is presenting with a week of increased heart rate. Patient last week and was told by her physical therapist that her heart rate was irregular she's been having bouts of heart rates up into the 140s with palpitations and shortness of breath for the last week. Patient's daughter states that she has not been getting her Coreg as much because her blood pressure also is below. Her systolic blood pressure at times has been less than 100 on numerous occasions with elevated heart rate. Her daughter feels that she would like to give her something for the heart rate she knows that Coreg as a beta nelda but because is unsafe to give it since her blood pressure has been low. Patient will drink fluids aggressively and her blood pressure will respond to come back up. Patient feels as though she may be dehydrated she has a dry mouth. Her primary doctors put her on a sodium tablets. Her daughters listed to the yellow bag for her peritoneal dialysis. Patient denies any chest pain cough nausea vomiting diarrhea Past History Past Medical History: dialysis, HIV/AIDS, hypertension Past Surgical History: Other (PD catheter placement ) Medications and Allergies Allergies Allergy/AdvReac Type Severity Reaction Status Date / Time Sulfa (Sulfonamide Allergy Itching Verified 06/22/16 14:04 Antibiotics) sulfamethoxazole Allergy Itching Verified 08/29/16 11:11 [From Bactrim] trimethoprim [From Bactrim] Allergy Itching Verified 08/29/16 11:11 Home Medications Medication Instructions Recorded Confirmed Last Taken Type Efavirenz [Sustiva] 600 mg PO DAILY #30 tablet 07/19/13 06/18/17 09/04/16 22:30 Rx lamiVUDine [Epivir] 150 mg PO DAILY #30 tablet 07/19/13 06/18/17 09/04/16 22:30 Rx 150mg Calcitriol [Rocaltrol] 0.5 mcg PO QDAY #30 capsule 05/26/16 06/18/17 09/05/16 10 :00 Rx 0.5mg Carvedilol [Coreg] 6.25 mg PO BID #60 tablet 05/26/16 06/18/17 09/06/16 10:00 Rx Famotidine [Pepcid] 20 mg PO QDAY #30 tablet 05/26/16 06/18/17 09/05/16 10:00 Rx ISOSORBIDE MONOnitrate [Imdur ER] 30 mg PO QDAY #30 tablet 05/26/16 06/18/17 10:00 Rx Pravastatin Sodium [Pravastatin] 80 mg PO QHS 06/22/16 06/18/17 09/05/16 22:30 History 80mg amLODIPine [Norvasc] 10 mg PO DAILY 06/22/16 06/18/17 09/06/16 10:00 History cloNIDine [Catapres] 0.2 mg PO QHS 06/22/16 06/18/17 09/05/16 22:30 History hydrALAZINE [Apresoline TAB] 50 mg PO BID 06/22/16 06/18/17 09/06/16 10:00 History 100mg Abacavir [Ziagen TAB] 300 mg PO BID 06/25/16 06/18/17 09/04/16 22:30 History Ferrous Gluconate [Fergon 325 MG 325 mg PO QDAY #30 tablet 06/26/16 06/18/17 10:00 Rx tab] Lisinopril [Zestril TAB] 40 mg PO QDAY 08/29/16 06/18/17 09/05/16 10:00 History HYDROcodone/APAP 5-325 [[place] 1 each PO Q4HR PRN #20 tablet 09/06/16 06/18/17 Unknown Rx 5-325 mg TAB] Acetaminophen [Tylenol Extra 1,000 mg PO QID PRN #60 tablet 02/13/17 06/18/17 Unknown Rx Strength] Furosemide [Lasix TAB] 20 mg PO QDAY 06/18/17 06/18/17 Unknown History ISOSORBIDE MONOnitrate [Imdur ER] 30 mg PO DAILY 06/18/17 06/18/17 Unknown History Potassium Chloride [Klor-Con] 20 meq PO QDAY 06/18/17 06/18/17 Unknown History Sevelamer Carbonate [Renvela] 800 mg PO QAC 02/25/18 02/25/18 Unknown History Fluconazole [Diflucan TAB] 200 mg PO QDAY #4 tablet 06/26/17 Unknown Rx Ipratropium/Albuterol Sulfate 1 ampul IH Q4H PRN #30 ampul.neb 06/26/17 Unknown Rx [DUONEB *Not for PRN Use*] Prednisone [predniSONE 5 mg (6-Day 5 mg PO .TAPER #1 tab.ds.pk 06/26/17 Unknown Rx Pack, 21 Tabs)] oxyCODONE /ACETAMINOPHEN [Percocet 1 tab PO Q6H PRN #20 tablet 06/26/17 Unknown Rx 5/325 mg] Active Meds: Active Medications Abacavir Sulfate (Ziagen) 300 mg PO BID [facility] Last Admin: 07/15/17 11:03 Dose: 300 mg Albuterol (Proventil) 2.5 mg IH Q4HRT PRN PRN Reason: Shortness Of Breath Amlodipine Besylate (Norvasc) 10 mg PO DAILY [facility] Last Admin: 07/15/17 11:08 Dose: Not Given Calcitriol (Rocaltrol) 0.5 mcg PO QDAY [facility] Last Admin: 07/15/17 11:17 Dose: 0.5 mcg Carvedilol (Coreg) 6.25 mg PO BID [facility] Last Admin: 07/15/17 11:09 Dose: Not Given Efavirenz (Sustiva) 600 mg PO DAILY [facility] Last Admin: 07/15/17 11:04 Dose: 600 mg Fluconazole (Diflucan) 200 mg PO QDAY [facility] Last Admin: 07/15/17 11:03 Dose: 200 mg Hydralazine HCl (Apresoline) 50 mg PO BID [facility] Last Admin: 07/15/17 11:09 Dose: Not Given Sodium Chloride (Nacl 0.9% 1000 Ml) 1,000 mls @ 125 mls/hr IV DIRECT [facility] Isosorbide Mononitrate (Imdur) 30 mg PO DAILY [facility] Last Admin: 07/15/17 11:08 Dose: Not Given Lamivudine (Epivir) 150 mg PO DAILY [facility] Last Admin: 07/15/17 11:03 Dose: 150 mg Lisinopril (Zestril) 40 mg PO QDAY [facility] Last Admin: 07/15/17 11:06 Dose: Not Given Pantoprazole Sodium (Protonix) 40 mg IV BID [facility] Last Admin: 07/15/17 11:05 Dose: 40 mg Potassium Chloride (Potassium Chloride) 40 meq PO QDAY [facility] Last Admin: 07/15/17 11:02 Dose: 40 meq Review of Systems All systems: negative (except as noted above) Exam - Vital Signs Vital signs: Vital Signs Temp Pulse Resp BP Pulse Ox 97.8 F 107 H 16 130/70 100 07/14/17 15:42 07/14/17 15:42 07/14/17 15:42 07/14/17 15:42 07/14/17 15:42 - General Appearance General appearance: well-developed, well-nourished, appears stated age EENT: PERRL, mucous membranes moist Neck: Present: neck supple, trachea midline. Absent: JVD/HJR, Masses Respiratory: Clear to Ascultation Heart: regular, normal heart rate, S1S2, no murmurs Gastrointestinal: Present: normal, normoactive bowel sounds, other (PD catheter in place ) Integumentary: no rash, other (no edema) Results - Lab Results 07/15/17 07:15 07/14/17 15:50 Most recent lab results Calcium 7.6 mg/dL (8.4-10.2) L 07/14/17 15:50 Assessment and Plan Impression * End-stage renal disease and maintain his beta hemodialysis * Tachycardia * Hypokalemia * Hyponatremia * Severe anemia * HIV disease Recommendations * Resume CAPD with 1.5% solutions at this time * Patient needs fluid restriction to correct her hyponatremia * With packed RBC transfusion * Administer Procrit as well * Check iron stores as well as a B12 level and reticulocyte count * Avoid nephrotoxins * Adjust diet and meds for her ESRD state * Thank you very much for the consultation. Shall follow along with you
[2017-07-15 15:29] LABS: Hematocrit 28.5 % (30.3-42.9); Hemoglobin 9.3 gm/dl (10.1-14.3)
--- NOTE | 2017-07-15 19:25 | Gastroenterology Consultation ---
History of Present Illness - Reason for Consult Consult date: 07/15/17 Anemia, heme positive stool Requesting physician: WILLY PARRA - History of Present Illness The patient is a 81 year old female with multiple medical problems including HIV , ESRD, CAD, and hypertension who is known to me from prior care. She had occult GI blood loss in the past and underwent EGD and colonoscopy in June 2016. 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 She is admitted with anemia, but no overt bleeding. Stool was heme positive. She has been on iron therapy. Patient denies any current GI symptoms. Past History Past Medical History: dialysis, HIV/AIDS, hypertension Past Surgical History: Other (PD catheter placement ) Medications and Allergies Allergies Allergy/AdvReac Type Severity Reaction Status Date / Time Sulfa (Sulfonamide Allergy Itching Verified 06/22/16 14:04 Antibiotics) sulfamethoxazole Allergy Itching Verified 08/29/16 11:11 [From Bactrim] trimethoprim [From Bactrim] Allergy Itching Verified 08/29/16 11:11 Home Medications Medication Instructions Recorded Confirmed Last Taken Type Efavirenz [Sustiva] 600 mg PO DAILY #30 tablet 07/19/13 06/18/17 09/04/16 22:30 Rx lamiVUDine [Epivir] 150 mg PO DAILY #30 tablet 07/19/13 06/18/17 09/04/16 22:30 Rx 150mg Calcitriol [Rocaltrol] 0.5 mcg PO QDAY #30 capsule 05/26/16 06/18/17 09/05/16 10 :00 Rx 0.5mg Carvedilol [Coreg] 6.25 mg PO BID #60 tablet 05/26/16 06/18/17 09/06/16 10:00 Rx Famotidine [Pepcid] 20 mg PO QDAY #30 tablet 05/26/16 06/18/17 09/05/16 10:00 Rx ISOSORBIDE MONOnitrate [Imdur ER] 30 mg PO QDAY #30 tablet 05/26/16 06/18/17 10:00 Rx Pravastatin Sodium [Pravastatin] 80 mg PO QHS 06/22/16 06/18/17 09/05/16 22:30 History 80mg amLODIPine [Norvasc] 10 mg PO DAILY 06/22/16 06/18/17 09/06/16 10:00 History cloNIDine [Catapres] 0.2 mg PO QHS 06/22/16 06/18/17 09/05/16 22:30 History hydrALAZINE [Apresoline TAB] 50 mg PO BID 06/22/16 06/18/17 09/06/16 10:00 History 100mg Abacavir [Ziagen TAB] 300 mg PO BID 06/25/16 06/18/17 09/04/16 22:30 History Ferrous Gluconate [Fergon 325 MG 325 mg PO QDAY #30 tablet 06/26/16 06/18/17 10:00 Rx tab] Lisinopril [Zestril TAB] 40 mg PO QDAY 08/29/16 06/18/17 09/05/16 10:00 History HYDROcodone/APAP 5-325 [[place] 1 each PO Q4HR PRN #20 tablet 09/06/16 06/18/17 Unknown Rx 5-325 mg TAB] Acetaminophen [Tylenol Extra 1,000 mg PO QID PRN #60 tablet 02/13/17 06/18/17 Unknown Rx Strength] Furosemide [Lasix TAB] 20 mg PO QDAY 06/18/17 06/18/17 Unknown History ISOSORBIDE MONOnitrate [Imdur ER] 30 mg PO DAILY 06/18/17 06/18/17 Unknown History Potassium Chloride [Klor-Con] 20 meq PO QDAY 06/18/17 06/18/17 Unknown History Sevelamer Carbonate [Renvela] 800 mg PO QAC 06/18/17 06/18/17 Unknown History Fluconazole [Diflucan TAB] 200 mg PO QDAY #4 tablet 06/26/17 Unknown Rx Ipratropium/Albuterol Sulfate 1 ampul IH Q4H PRN #30 ampul.neb 06/26/17 Unknown Rx [DUONEB *Not for PRN Use*] Prednisone [predniSONE 5 mg (6-Day 5 mg PO .TAPER #1 tab.ds.pk 06/26/17 Unknown Rx Pack, 21 Tabs)] oxyCODONE /ACETAMINOPHEN [Percocet 1 tab PO Q6H PRN #20 tablet 06/26/17 Unknown Rx 5/325 mg] Active Meds: Active Medications Abacavir Sulfate (Ziagen) 300 mg PO BID [facility] Last Admin: 07/15/17 11:03 Dose: 300 mg Albuterol (Proventil) 2.5 mg IH Q4HRT PRN PRN Reason: Shortness Of Breath Amlodipine Besylate (Norvasc) 10 mg PO DAILY [facility] Last Admin: 07/15/17 15:27 Dose: 10 mg Calcitriol (Rocaltrol) 0.5 mcg PO QDAY [facility] Last Admin: 07/15/17 11:17 Dose: 0.5 mcg Carvedilol (Coreg) 6.25 mg PO BID [facility] Last Admin: 07/15/17 11:09 Dose: Not Given Efavirenz (Sustiva) 600 mg PO DAILY [facility] Last Admin: 07/15/17 11:04 Dose: 600 mg Fluconazole (Diflucan) 200 mg PO QDAY [facility] Last Admin: 07/15/17 11:03 Dose: 200 mg Hydralazine HCl (Apresoline) 50 mg PO BID [facility] Last Admin: 07/15/17 11:09 Dose: Not Given Sodium Chloride (Nacl 0.9% 1000 Ml) 1,000 mls @ 125 mls/hr IV DIRECT [facility] Isosorbide Mononitrate (Imdur) 30 mg PO DAILY [facility] Last Admin: 07/15/17 11:08 Dose: Not Given Lamivudine (Epivir) 150 mg PO DAILY [facility] Last Admin: 07/15/17 11:03 Dose: 150 mg Lisinopril (Zestril) 40 mg PO QDAY [facility] Last Admin: 07/15/17 11:06 Dose: Not Given Pantoprazole Sodium (Protonix) 40 mg IV BID [facility] Last Admin: 07/15/17 11:05 Dose: 40 mg Peritoneal Dialysis Solution (Dianeal Pd-2 W/1.5% Dextrose) 2,000 ml IP Q6HR [facility] Potassium Chloride (Potassium Chloride) 40 meq PO QDAY [facility] Last Admin: 07/15/17 11:02 Dose: 40 meq Review of Systems - Review of Systems Constitutional: no weight loss, no weight gain Eyes: no change in vision Ears, Nose, Throat: no decreased hearing, no difficulty swallowing, no painful swallowing Cardiovascular: no chest pain, no edema, no rapid/irregular heart beat, no shortness of breath Respiratory: no shortness of breath Gastrointestinal: no abdominal pain, no melena, no hematochezia Rectal: no pain Female Genitourinary: deferred Musculoskeletal: no gait dysfunction, no joint pain Integumentary: no pruritis, no jaundice Neurological: no paralysis, no weakness, no parasthesias Psychiatric: no anxiety, no memory loss Hematologic/Lymphatic: no easy bruising, no easy bleeding Allergic/Immunologic: no angioedema Exam - Constitutional Vital Signs: Temp Pulse Resp BP Pulse Ox 98.3 F 84 18 150/80 100 07/15/17 16:33 07/15/17 16:33 07/15/17 16:33 07/15/17 16:33 07/15/17 16:33 General appearance: no acute distress, well-nourished - EENT Eyes: PERRL ENT: hearing intact, clear oral mucosa - Neck Neck: supple, normal ROM, no masses or JVD - Respiratory Respiratory effort: normal Respiratory: bilateral: CTA - Breasts Breasts: deferred - Cardiovascular Rhythm: regular Heart Sounds: Present: S1 & S2. Absent: gallop, rub Extremities: pulses intact, No edema, normal color, Full ROM - Gastrointestinal General gastrointestinal: Present: soft, non-tender, non-distended, normal bowel sounds. Absent: hepatomegaly, splenomegaly, mass Rectal Exam: deferred - Genitourinary Female Genitourinary: deferred - Integumentary Integumentary: Present: clear, warm, dry - Neurologic Neurological: alert and oriented x3 - Labs CBC & Chem 7: 07/15/17 15:11 07/14/17 15:50 Lab Results: Laboratory Results - last 24 hr 07/14/17 07/14/17 07/15/17 15:50 21:26 07:15 Hgb Hct Sodium 129 L Potassium 3.1 L Chloride 87.4 L Carbon Dioxide 21 L Anion Gap 24 BUN 32 H Creatinine 5.5 H Estimated GFR 9 BUN/Creatinine Ratio 6 Glucose 177 H Osmolality Calcium 7.6 L Troponin T 0.036 H 0.044 H Triglycerides 219 H Cholesterol 214 H LDL Cholesterol Direct 132 H HDL Cholesterol 51 Cholesterol/HDL Ratio 4.19 Blood Type A POSITIVE Antibody Screen Negative Crossmatch See Detail 07/15/17 07/15/17 07/15/17 07:15 07:15 15:11 Hgb 6.7 L 9.3 L Hct 20.7 L 28.5 L D Sodium Potassium Chloride Carbon Dioxide Anion Gap BUN Creatinine Estimated GFR BUN/Creatinine Ratio Glucose Osmolality 290 Calcium Troponin T Triglycerides Cholesterol LDL Cholesterol Direct HDL Cholesterol Cholesterol/HDL Ratio Blood Type Antibody Screen Crossmatch Assessment and Plan - Patient Problems (1) Occult GI bleeding Current Visit: Yes Status: Acute Plan to address problem: The patient is known to have AVMs of the stomach and duodenum in the past. No overt bleeding is present and there is no need for urgent endoscopy. Anemia is likely multifactorial in this patient with ESRD, HIV. If H&H continues to fall , then repeat EGD will be considered. Otherwise conservative care is planned. No need to repeat the colonoscopy which was done a year ago. Thank you for asking me to see her in consultation. (2) Atrial fibrillation with RVR Current Visit: Yes Status: Acute (3) COPD (chronic obstructive pulmonary disease) Current Visit: Yes Status: Chronic Qualifiers: Emphysema type: unspecified (4) ESRD (end stage renal disease) Current Visit: Yes Status: Chronic (5) HIV (human immunodeficiency virus infection) Current Visit: Yes Status: Chronic
--- NOTE | 2017-07-15 22:49 | Progress Note ---
Assessment and Plan Assessment and plan: 81-year-old -French female with multiple medical problems including end -stage renal disease hypertension hyperlipidemia and HIV comes in for palpitations and borderline low blood pressure Patient was sent from dialysis center for low blood pressure. In the emergency room her heart rate was in the 130s and 140s. Also some shortness of breath. No chest pain. No diaphoresis. No recent travel. - Patient Problems (1) GI bleed Current Visit: Yes Status: Chronic Qualifiers: GI bleed type/associated pathology: unspecified gastrointestinal hemorrhage type Qualified Code(s): K92.2 - Gastrointestinal hemorrhage, unspecified Plan to address problem: IV Protonix for now. 1 Units PRBC GI consult Nothing by mouth (2) Atrial fibrillation with RVR Current Visit: Yes Status: Acute Plan to address problem: Patient on Cardizem. Heart rate has come down to 93 (3) ESRD (end stage renal disease) Current Visit: Yes Status: Chronic Plan to address problem: Peritoneal dialysis Nephrology consult requested (4) Hypertension Current Visit: Yes Status: Chronic Qualifiers: Hypertension type: essential hypertension Qualified Code(s): I10 - Essential (primary) hypertension Plan to address problem: Continue antihypertensives (5) HIV (human immunodeficiency virus infection) Current Visit: Yes Status: Chronic Plan to address problem: Continue antiretrovirals (6) Hypokalemia Current Visit: Yes Status: Chronic Plan to address problem: Supplemented (7) Hyponatremia Current Visit: Yes Status: Acute (8) Hyponatremia Current Visit: Yes Status: Acute Plan to address problem: Osmolarity ordered 1 L of normal saline for now (9) COPD (chronic obstructive pulmonary disease) Current Visit: Yes Status: Chronic Qualifiers: Emphysema type: unspecified Plan to address problem: Duonebs Prn (10) DVT prophylaxis Current Visit: Yes Status: Acute Plan to address problem: Only SCDs Additional 20 mins spent History Interval history: Patient is examined in acute distress resting comfortably at this time. Hospitalist Physical - Physical exam Narrative exam: VITAL SIGNS: Reviewed. GENERAL: The patient appeared well nourished and normally developed. Markedly cachectic Vital signs as documented. HEAD: No signs of head trauma. EYES: Pupils are equal. Extraocular motions intact. EARS: Hearing grossly intact. MOUTH: Oropharynx is normal. NECK: No adenopathy, no JVD. CHEST: Chest with clear breath sounds bilaterally. No wheezes, rales, or rhonchi. CARDIAC: Regular rate and rhythm. S1 and S2, without murmurs, gallops, or rubs. VASCULAR: No Edema. Peripheral pulses normal and equal in all extremities. ABDOMEN: Soft, without detectable tenderness. No sign of distention. No rebound or guarding, and no masses palpated. Bowel Sounds normal. MUSCULOSKELETAL: Good range of motion of all major joints. Extremities without clubbing, cyanosis or edema. NEUROLOGIC EXAM: Alert and oriented x 3. No focal sensory or strength deficits. Speech normal. Follows commands. PSYCHIATRIC: Mood normal. SKIN: No rash or lesions. - Constitutional Vitals: Temp Pulse Resp BP Pulse Ox 98.6 F 80 18 136/76 100 07/15/17 19:51 07/15/17 21:10 07/15/17 22:00 07/15/17 21:10 07/15/17 19:51 General appearance: Present: mild distress, well-nourished Results - Labs CBC & Chem 7: 07/16/17 09:26 07/16/17 09:26 Labs: Laboratory Last Values WBC 7.2 K/mm3 (4.5-11.0) 07/14/17 15:50 RBC 2.88 M/mm3 (3.65-5.03) L 07/14/17 15:50 Hgb 9.3 gm/dl (10.1-14.3) L 07/15/17 15:11 Hct 28.5 % (30.3-42.9) L D 07/15/17 15:11 MCV 85 fl (79-97) 07/14/17 15:50 MCH 28 pg (28-32) 07/14/17 15:50 MCHC 33 % (30-34) 07/14/17 15:50 RDW 18.5 % (13.2-15.2) H 07/14/17 15:50 Plt Count 283 K/mm3 (140-440) 07/14/17 15:50 Lymph % (Auto) 23.9 % (13.4-35.0) 07/14/17 15:50 [place] % (Auto) 6.3 % (0.0-7.3) 07/14/17 15:50 Eos % (Auto) 4.4 % (0.0-4.3) H 07/14/17 15:50 Baso % (Auto) 0.6 % (0.0-1.8) 07/14/17 15:50 Lymph # 1.7 K/mm3 (1.2-5.4) 07/14/17 15:50 Larue # 0.5 K/mm3 (0.0-0.8) 07/14/17 15:50 Eos # 0.3 K/mm3 (0.0-0.4) 07/14/17 15:50 Baso # 0.0 K/mm3 (0.0-0.1) 07/14/17 15:50 Seg Neutrophils % 64.8 % (40.0-70.0) 07/14/17 15:50 Seg Neutrophils # 4.7 K/mm3 (1.8-7.7) 07/14/17 15:50 Sodium 129 mmol/L (137-145) L 07/14/17 15:50 Potassium 3.1 mmol/L (3.6-5.0) L 07/14/17 15:50 Chloride 87.4 mmol/L (98-107) L 07/14/17 15:50 Carbon Dioxide 21 mmol/L (22-30) L 07/14/17 15:50 Anion Gap 24 mmol/L 07/14/17 15:50 BUN 32 mg/dL (7-17) H 07/14/17 15:50 Creatinine 5.5 mg/dL (0.7-1.2) H 07/14/17 15:50 Estimated GFR 9 ml/min 07/14/17 15:50 BUN/Creatinine Ratio 6 % 07/14/17 15:50 Glucose 177 mg/dL (65-100) H 07/14/17 15:50 Osmolality 290 Mosm/kg 07/15/17 07:15 Calcium 7.6 mg/dL (8.4-10.2) L 07/14/17 15:50 Troponin T 0.044 ng/mL (0.00-0.029) H 07/14/17 21:26 Triglycerides 219 mg/dL (2-149) H 07/14/17 15:50 Cholesterol 214 mg/dL (50-199) H 07/14/17 15:50 LDL Cholesterol Direct 132 mg/dL (50-130) H 07/14/17 15:50 HDL Cholesterol 51 mg/dL (40-59) 07/14/17 15:50 Cholesterol/HDL Ratio 4.19 % 07/14/17 15:50 Blood Type A POSITIVE 07/15/17 07:15 Antibody Screen Negative 07/15/17 07:15 Crossmatch See Detail 07/15/17 07:15
[2017-07-15 23:59] LABS: Hematocrit 27.1 % (30.3-42.9); Hemoglobin 8.9 gm/dl (10.1-14.3)
[2017-07-16] MEDS: APRESOLINE PO SCH ×4 (00:19→22:50)
[2017-07-16] MEDS: DIANEAL PD-2 W/1.5% DEXTROSE IP SCH ×4 (00:47→18:00)
[2017-07-16] MEDS: COREG PO SCH ×2 (09:37→22:50)
[2017-07-16] MEDS: IMDUR PO SCH (09:37)
[2017-07-16] MEDS: EPIVIR PO SCH (09:38)
[2017-07-16] MEDS: DIFLUCAN PO SCH (09:38)
[2017-07-16] MEDS: POTASSIUM CHLORIDE PO SCH (09:38)
[2017-07-16] MEDS: ZIAGEN PO SCH ×2 (09:39→22:50)
[2017-07-16] MEDS: ZESTRIL PO SCH (09:45)
[2017-07-16] MEDS: NORVASC PO SCH (09:45)
--- NOTE | 2017-07-16 09:50 | Gastroenterology Progress Note ---
Assessment and Plan - Patient Problems (1) Occult GI bleeding Current Visit: Yes Status: Acute Plan to address problem: No overt blood loss. Anemia is likely multifactorial. No new labs today. Stable clinically. Will advance diet. Recheck labs. Outpatient EGD will be planned unless there is a sharp fall in the H&H. (2) Atrial fibrillation with RVR Current Visit: Yes Status: Acute (3) COPD (chronic obstructive pulmonary disease) Current Visit: Yes Status: Chronic Qualifiers: Emphysema type: unspecified (4) ESRD (end stage renal disease) Current Visit: Yes Status: Chronic (5) HIV (human immunodeficiency virus infection) Current Visit: Yes Status: Chronic Subjective Date of service: 07/16/17 Principal diagnosis: Anemia, history of gastric and duodenal AVMs Interval history: The patient reports feeling well. No abdominal discomfort. Hungry. Denies melena, rectal bleeding. Objective - Constitutional Vitals: Temp Pulse Resp BP Pulse Ox 98.7 F 80 16 143/84 99 07/16/17 07:44 07/16/17 09:37 07/16/17 09:05 07/16/17 09:37 07/16/17 07:45 General appearance: no acute distress - EENT ENT: hearing intact, clear oral mucosa - Respiratory Respiratory effort: normal Respiratory: bilateral: CTA - Cardiovascular Rhythm: regular - Gastrointestinal General gastrointestinal: Present: soft, non-tender, non-distended, normal bowel sounds - Neurologic Neurological: alert and oriented x3 - Labs CBC & Chem 7: 07/15/17 23:20 07/14/17 15:50 Labs: Laboratory Results - last 24 hr 07/15/17 07/15/17 07/15/17 07:15 15:11 23:20 Hgb 9.3 L 8.9 L Hct 28.5 L D 27.1 L Urine Osmolality Blood Type A POSITIVE Antibody Screen Negative Crossmatch See Detail 07/16/17 07:00 Hgb Hct Urine Osmolality 213 Blood Type Antibody Screen Crossmatch
[2017-07-16] MEDS: ROCALTROL PO SCH (09:51)
[2017-07-16] MEDS: PROTONIX IV SCH ×2 (09:51→22:50)
[2017-07-16] MEDS: SUSTIVA PO SCH (10:30)
[2017-07-16 10:41] LABS: Hematocrit 28.6 % (30.3-42.9); Hemoglobin 9.4 gm/dl (10.1-14.3); Mean Corpuscular HGB Conc 33 % (30-34); Mean Corpuscular Hemoglobin 28 pg (28-32); Mean Corpuscular Volume 85 fl (79-97); Platelet Count 270 K/mm3 (140-440); Red Blood Count 3.36 M/mm3 (3.65-5.03); Red Cell Distribution Width 18.5 % (13.2-15.2)
[2017-07-16 10:56] LABS: Calcium 7.9 mg/dL (8.4-10.2)
--- NOTE | 2017-07-16 12:55 | Discharge Summary ---
Providers - Providers Date of Admission: 07/14/17 21:48 Attending physician: SARA HERNANDEZ MD 07/15/17 05:52 Consult to Physician [CONS] Routine Comment: Consulting Provider: MATTI CORDOVA Physician Instructions: Reason For Exam: gi bleed 07/15/17 05:54 Consult to Physician [CONS] Routine Comment: Consulting Provider: BRENT CINTRON Physician Instructions: Reason For Exam: ESRD on PD Primary care physician: DIANA RUST Hospitalization Reason for admission: symptomatic anemia Condition: Stable Hospital course: 81-year-old -[place] female with multiple medical problems including end -stage renal disease hypertension hyperlipidemia and HIV comes in for palpitations and borderline low blood pressure Patient was sent from dialysis center for low blood pressure. In the emergency room her heart rate was in the 130s and 140s. Also some shortness of breath. No chest pain. No diaphoresis. No recent travel. On admission was felt that patient's anemia is multifactorial she denies any GI bleed and melena bright red blood per rectum. GI did see the patient outpatient endoscopy. Patient was transfused 1 unit packed red blood cells with improvement. This clinically stable at this point for discharge patient is not on any antiplatelet ablation for A. fib due to anemia. Side effects and risks of all medications in critical condition discussed in detail with - Discharge Diagnosis (1) GI bleed (2) Atrial fibrillation with RVR (3) ESRD (end stage renal disease) (4) Hypertension (5) HIV (human immunodeficiency virus infection) (6) Hypokalemia (7) Hyponatremia (8) Hyponatremia (9) COPD (chronic obstructive pulmonary disease) (10) severe protein calorie malnutrition Disposition: TO HOME OR SELFCARE Time spent for discharge: 35 mins Core Measure Documentation - Palliative Care Palliative Care/ Comfort Measures: Not Applicable - Core Measures Any of the following diagnoses?: none - VTE Discharge Requirements Deep Vein Thrombosis/Pulmonary Embolism Present on Admission: No Exam - Physical Exam Narrative exam: VITAL SIGNS: Reviewed. GENERAL: The patient appeared well nourished and normally developed. Markedly cachectic Vital signs as documented. HEAD: No signs of head trauma. EYES: Pupils are equal. Extraocular motions intact. EARS: Hearing grossly intact. MOUTH: Oropharynx is normal. NECK: No adenopathy, no JVD. CHEST: Chest with clear breath sounds bilaterally. No wheezes, rales, or rhonchi. CARDIAC: Regular rate and rhythm. S1 and S2, without murmurs, gallops, or rubs. VASCULAR: No Edema. Peripheral pulses normal and equal in all extremities. ABDOMEN: Soft, without detectable tenderness. No sign of distention. No rebound or guarding, and no masses palpated. Bowel Sounds normal. MUSCULOSKELETAL: Good range of motion of all major joints. Extremities without clubbing, cyanosis or edema. NEUROLOGIC EXAM: Alert and oriented x 3. No focal sensory or strength deficits. Speech normal. Follows commands. PSYCHIATRIC: Mood normal. SKIN: No rash or lesions. - Constitutional Vitals: Temp Pulse Resp BP Pulse Ox 97.8 F 74 17 159/85 100 07/16/17 12:46 07/16/17 12:46 07/16/17 12:46 07/16/17 12:46 07/16/17 12:46 Plan Activity: advance as tolerated, fall precautions Diet: diabetic, renal Special Instructions: record daily weights, record daily BP diary Follow up with: PRIMARY CARE, [Referring] - 3-5 Days
--- NOTE | 2017-07-16 13:02 | Progress Note ---
Assessment and Plan Assessment and plan: 81-year-old -Finn[place] female with multiple medical problems including end -stage renal disease hypertension hyperlipidemia and HIV comes in for palpitations and borderline low blood pressure Patient was sent from dialysis center for low blood pressure. In the emergency room her heart rate was in the 130s and 140s. Also some shortness of breath. No chest pain. No diaphoresis. No recent travel. - Patient Problems (1) GI bleed Current Visit: Yes Status: Chronic Qualifiers: GI bleed type/associated pathology: unspecified gastrointestinal hemorrhage type Qualified Code(s): K92.2 - Gastrointestinal hemorrhage, unspecified Plan to address problem: IV Protonix for now. 1 Units PRBC GI consult (2) Atrial fibrillation with RVR Current Visit: Yes Status: Acute Plan to address problem: Patient on Cardizem. Heart rate has come down to 93 CARDIOLOGY TO EVAL TOMORROW (3) ESRD (end stage renal disease) Current Visit: Yes Status: Chronic Plan to address problem: Peritoneal dialysis Nephrology consult requested (4) Hypertension Current Visit: Yes Status: Chronic Qualifiers: Hypertension type: essential hypertension Qualified Code(s): I10 - Essential (primary) hypertension Plan to address problem: Continue antihypertensives (5) HIV (human immunodeficiency virus infection) Current Visit: Yes Status: Chronic Plan to address problem: Continue antiretrovirals (6) Hypokalemia Current Visit: Yes Status: Chronic Plan to address problem: Supplemented (7) Hyponatremia Current Visit: Yes Status: Acute (8) Hyponatremia Current Visit: Yes Status: Acute Plan to address problem: Osmolarity ordered 1 L of normal saline for now (9) COPD (chronic obstructive pulmonary disease) Current Visit: Yes Status: Chronic Qualifiers: Emphysema type: unspecified Plan to address problem: Duonebs Prn (10) Diarrhea monitor. If recurrent send for c.diff. (11) DVT prophylaxis Current Visit: Yes Status: Acute Plan to address problem: Only SCDs Additional 20 mins spent History Interval history: Patient is examined in acute distress resting comfortably at this time. reports 2 loose stool this am. Hospitalist Physical - Physical exam Narrative exam: - Physical exam Narrative exam: VITAL SIGNS: Reviewed. GENERAL: The patient appeared well nourished and normally developed. Markedly cachectic Vital signs as documented. HEAD: No signs of head trauma. EYES: Pupils are equal. Extraocular motions intact. EARS: Hearing grossly intact. MOUTH: Oropharynx is normal. NECK: No adenopathy, no JVD. CHEST: Chest with clear breath sounds bilaterally. No wheezes, rales, or rhonchi. CARDIAC: Regular rate and rhythm. S1 and S2, without murmurs, gallops, or rubs. VASCULAR: No Edema. Peripheral pulses normal and equal in all extremities. ABDOMEN: Soft, without detectable tenderness. No sign of distention. No rebound or guarding, and no masses palpated. Bowel Sounds normal. MUSCULOSKELETAL: Good range of motion of all major joints. Extremities without clubbing, cyanosis or edema. NEUROLOGIC EXAM: Alert and oriented x 3. No focal sensory or strength deficits. Speech normal. Follows commands. PSYCHIATRIC: Mood normal. SKIN: No rash or lesions. - Constitutional Vitals: Temp Pulse Resp BP Pulse Ox 97.8 F 74 17 159/85 100 07/16/17 12:46 07/16/17 12:46 07/16/17 12:46 07/16/17 12:46 07/16/17 12:46 General appearance: Present: mild distress, well-nourished Results - Labs CBC & Chem 7: 07/16/17 09:26 07/16/17 09:26 Labs: Laboratory Last Values WBC 5.2 K/mm3 (4.5-11.0) 07/16/17 09:26 RBC 3.36 M/mm3 (3.65-5.03) L 07/16/17 09:26 Hgb 9.4 gm/dl (10.1-14.3) L 07/16/17 09:26 Hct 28.6 % (30.3-42.9) L 07/16/17 09:26 MCV 85 fl (79-97) 07/16/17 09:26 MCH 28 pg (28-32) 07/16/17 09:26 MCHC 33 % (30-34) 07/16/17 09:26 RDW 18.5 % (13.2-15.2) H 07/16/17 09:26 Plt Count 270 K/mm3 (140-440) 07/16/17 09:26 Lymph % (Auto) 23.9 % (13.4-35.0) 07/14/17 15:50 [place] % (Auto) 6.3 % (0.0-7.3) 07/14/17 15:50 Eos % (Auto) 4.4 % (0.0-4.3) H 07/14/17 15:50 Baso % (Auto) 0.6 % (0.0-1.8) 07/14/17 15:50 Lymph # 1.7 K/mm3 (1.2-5.4) 07/14/17 15:50 [place] # 0.5 K/mm3 (0.0-0.8) 07/14/17 15:50 Eos # 0.3 K/mm3 (0.0-0.4) 07/14/17 15:50 Baso # 0.0 K/mm3 (0.0-0.1) 07/14/17 15:50 Seg Neutrophils % 64.8 % (40.0-70.0) 07/14/17 15:50 Seg Neutrophils # 4.7 K/mm3 (1.8-7.7) 07/14/17 15:50 Sodium 136 mmol/L (137-145) L D 07/16/17 09:26 Potassium 3.5 mmol/L (3.6-5.0) L 07/16/17 09:26 Chloride 98.0 mmol/L (98-107) 07/16/17 09:26 Carbon Dioxide 19 mmol/L (22-30) L 07/16/17 09:26 Anion Gap 23 mmol/L 07/16/17 09:26 BUN 34 mg/dL (7-17) H 07/16/17 09:26 Creatinine 5.0 mg/dL (0.7-1.2) H 07/16/17 09:26 Estimated GFR 10 ml/min 07/16/17 09:26 BUN/Creatinine Ratio 7 % 07/16/17 09:26 Glucose 111 mg/dL (65-100) H 07/16/17 09:26 Osmolality 290 Mosm/kg 07/15/17 07:15 Calcium 7.9 mg/dL (8.4-10.2) L 07/16/17 09:26 Troponin T 0.044 ng/mL (0.00-0.029) H 07/14/17 21:26 Triglycerides 219 mg/dL (2-149) H 07/14/17 15:50 Cholesterol 214 mg/dL (50-199) H 07/14/17 15:50 LDL Cholesterol Direct 132 mg/dL (50-130) H 07/14/17 15:50 HDL Cholesterol 51 mg/dL (40-59) 07/14/17 15:50 Cholesterol/HDL Ratio 4.19 % 07/14/17 15:50 Urine Osmolality 213 Mosm/kg 07/16/17 07:00 Blood Type A POSITIVE 07/15/17 07:15 Antibody Screen Negative 07/15/17 07:15 Crossmatch See Detail 07/15/17 07:15
--- NOTE | 2017-07-16 13:30 | Progress Note ---
Assessment and Plan Impression * End-stage renal disease and maintain his beta hemodialysis * Tachycardia * Hypokalemia * Hyponatremia * Severe anemia * HIV disease * Diarrhea Recommendations * Continue CAPD with 1.5% solutions at this time * Hyponatremia is better. Continue fluid restriction * s/p packed RBC transfusion * Administer Procrit as well * Check iron stores as well as a B12 level and reticulocyte count * Avoid nephrotoxins * Adjust diet and meds for her ESRD state * Check PD fluid for cell count and culture Subjective Date of service: 07/16/17 Principal diagnosis: Anemia, history of gastric and duodenal AVMs Interval history: Patient complains of having some diarrhea. Denies any abdominal pain. No nausea or vomiting. Objective - Vital Signs Vital signs: Vital Signs - 12hr 07/16/17 07/16/17 07/16/17 06:30 07:44 07:45 Temperature 97.4 F L 98.7 F Pulse Rate 74 80 76 Pulse Rate [ Apical] Respiratory 18 16 Rate Blood Pressure 143/84 Blood Pressure 153/75 [Right] O2 Sat by Pulse 100 99 99 Oximetry 07/16/17 07/16/17 07/16/17 08:00 09:05 09:37 Temperature Pulse Rate 73 80 Pulse Rate [ 80 Apical] Respiratory 16 Rate Blood Pressure 143/84 Blood Pressure [Right] O2 Sat by Pulse Oximetry 07/16/17 12:46 Temperature 97.8 F Pulse Rate 74 Pulse Rate [ Apical] Respiratory 17 Rate Blood Pressure Blood Pressure 159/85 [Right] O2 Sat by Pulse 100 Oximetry - General Appearance General appearance: well-developed, well-nourished, appears stated age EENT: PERRL, mucous membranes moist Neck: no JVD, no thyromegaly, no carotid bruit, supple Respiratory: Present: Clear to Ascultation Cardiology: regular, normal heart rate Gastrointestinal: normal, normoactive bowel sounds, other (PD catheter in place ) Integumentary: no rash, other (no edema ) - Lab 07/16/17 09:26 07/16/17 09:26 Most recent lab results Calcium 7.9 mg/dL (8.4-10.2) L 07/16/17 09:26
[2017-07-16 20:14] LABS: Total Cells Counted 100 /mm3
[2017-07-17] MEDS: DIANEAL PD-2 W/1.5% DEXTROSE IP SCH ×2 (00:30→06:27)
[2017-07-17] MEDS: ROCALTROL PO SCH (09:12)
[2017-07-17] MEDS: IMDUR PO SCH (09:12)
[2017-07-17] MEDS: DIFLUCAN PO SCH (09:12)
[2017-07-17] MEDS: NORVASC PO SCH (09:13)
[2017-07-17] MEDS: POTASSIUM CHLORIDE PO SCH (09:13)
[2017-07-17] MEDS: APRESOLINE PO SCH (09:13)
[2017-07-17] MEDS: ZIAGEN PO SCH (09:14)
[2017-07-17] MEDS: COREG PO SCH (09:14)
[2017-07-17] MEDS: PROTONIX IV SCH (09:14)
[2017-07-17] MEDS: EPIVIR PO SCH (09:28)
[2017-07-17] MEDS: SUSTIVA PO SCH (09:28)
[2017-07-17] MEDS: ZESTRIL PO SCH (09:28)
--- NOTE | 2017-07-17 09:35 | Consultation ---
History of Present Illness Consult date: 07/17/17 Requesting physician: SARA HERNANDEZ Consult reason: atrial fibrillation History of present illness: The pt is a 81 YO female with a past medical history significant for ESRD on PD , COPD, HTN, HLP, HIV, heart failure, pulmonary HTN, mod to severe MR, diverticulosis, GI bleed with AVMs, anemia, former tobacco and ETOH use. She is followed in our office by Dr. Mercado. She presented from medical art therapist's office with complaints of high HR and low BPs. Pt's daughter at bedside states that pt' s HR was noted to be 143bpm with low BPs and thus pt was referred to [facility] for further dinah/management. Pt did experience some palpitations, dizziness and diarrhea on the day of admission. Pt denies any chest pain, SOB, n/v, diaphoresis, or syncope. Following arrival, pt was found to be anemic with H/H 6.7/20.7, pt denies any overt bleeding, stool was heme positive. Pt received PRBC tx. Pt states that following PRBC tx, her HR and BPs normalized and her symptoms resolved. Telemetry reviewed with no evidence of cardiac arrhythmia or tachycardia. 12-lead ECG showed SR with frequent PACs - no atrial fibrillation or atrial flutter. Echo done 04/2016 showed EF 45%, grade 2 diastolic dysfunction, LA mildly dilated , trace AR, mod to severe MR, mild to mod TR, pulm HTN with RVSP 58mmHg. Pharmacologic MPI stress test done 06/22/2017 was negative for ischemia. Past History Past Medical History: anemia, COPD, dialysis (PD), heart failure, HIV/AIDS, hypertension, hyperlipidemia, other (GI bleed) Past Surgical History: Other (PD catheter placement ) Social history: lives with family, smoking (former), alcohol abuse (former) Medications and Allergies Allergies Allergy/AdvReac Type Severity Reaction Status Date / Time Sulfa (Sulfonamide Allergy Itching Verified 06/22/16 14:04 Antibiotics) sulfamethoxazole Allergy Itching Verified 08/29/16 11:11 [From Bactrim] trimethoprim [From Bactrim] Allergy Itching Verified 08/29/16 11:11 Home Medications Medication Instructions Recorded Confirmed Last Taken Type Efavirenz [Sustiva] 600 mg PO DAILY #30 tablet 07/19/13 06/18/17 09/04/16 22:30 Rx lamiVUDine [Epivir] 150 mg PO DAILY #30 tablet 07/19/13 06/18/17 09/04/16 22:30 Rx 150mg Calcitriol [Rocaltrol] 0.5 mcg PO QDAY #30 capsule 05/26/16 06/18/17 09/05/16 10 :00 Rx 0.5mg Carvedilol [Coreg] 6.25 mg PO BID #60 tablet 05/26/16 06/18/17 09/06/16 10:00 Rx Famotidine [Pepcid] 20 mg PO QDAY #30 tablet 05/26/16 06/18/17 09/05/16 10:00 Rx ISOSORBIDE MONOnitrate [Imdur ER] 30 mg PO QDAY #30 tablet 05/26/16 06/18/17 10:00 Rx Pravastatin Sodium [Pravastatin] 80 mg PO QHS 06/22/16 06/18/17 09/05/16 22:30 History 80mg amLODIPine [Norvasc] 10 mg PO DAILY 06/22/16 06/18/17 09/06/16 10:00 History cloNIDine [Catapres] 0.2 mg PO QHS 06/22/16 06/18/17 09/05/16 22:30 History hydrALAZINE [Apresoline TAB] 50 mg PO BID 06/22/16 06/18/17 09/06/16 10:00 History 100mg Abacavir [Ziagen TAB] 300 mg PO BID 06/25/16 06/18/17 09/04/16 22:30 History Ferrous Gluconate [Fergon 325 MG 325 mg PO QDAY #30 tablet 06/26/16 06/18/17 10:00 Rx tab] Lisinopril [Zestril TAB] 40 mg PO QDAY 08/29/16 06/18/17 09/05/16 10:00 History HYDROcodone/APAP 5-325 [Center Line 1 each PO Q4HR PRN #20 tablet 09/06/16 06/18/17 Unknown Rx 5-325 mg TAB] Acetaminophen [Tylenol Extra 1,000 mg PO QID PRN #60 tablet 02/13/17 06/18/17 Unknown Rx Strength] Furosemide [Lasix TAB] 20 mg PO QDAY 06/18/17 06/18/17 Unknown History ISOSORBIDE MONOnitrate [Imdur ER] 30 mg PO DAILY 06/18/17 06/18/17 Unknown History Potassium Chloride [Klor-Con] 20 meq PO QDAY 06/18/17 06/18/17 Unknown History Sevelamer Carbonate [Renvela] 800 mg PO QAC 06/18/17 06/18/17 Unknown History Fluconazole [Diflucan TAB] 200 mg PO QDAY #4 tablet 06/26/17 Unknown Rx Ipratropium/Albuterol Sulfate 1 ampul IH Q4H PRN #30 ampul.neb 06/26/17 Unknown Rx [DUONEB *Not for PRN Use*] Prednisone [predniSONE 5 mg (6-Day 5 mg PO .TAPER #1 tab.ds.pk 06/26/17 Unknown Rx Pack, 21 Tabs)] oxyCODONE /ACETAMINOPHEN [Percocet 1 tab PO Q6H PRN #20 tablet 06/26/17 Unknown Rx 5/325 mg] Active Meds: Active Medications Abacavir Sulfate (Ziagen) 300 mg PO BID [facility] Last Admin: 07/17/17 09:14 Dose: 300 mg Albuterol (Proventil) 2.5 mg IH Q4HRT PRN PRN Reason: Shortness Of Breath Amlodipine Besylate (Norvasc) 10 mg PO DAILY [facility] Last Admin: 07/17/17 09:13 Dose: 10 mg Calcitriol (Rocaltrol) 0.5 mcg PO QDAY [facility] Last Admin: 07/17/17 09:12 Dose: 0.5 mcg Carvedilol (Coreg) 6.25 mg PO BID [facility] Last Admin: 07/17/17 09:14 Dose: 6.25 mg Efavirenz (Sustiva) 600 mg PO DAILY [facility] Last Admin: 07/17/17 09:28 Dose: Not Given Fluconazole (Diflucan) 200 mg PO QDAY [facility] Last Admin: 07/17/17 09:12 Dose: 200 mg Hydralazine HCl (Apresoline) 50 mg PO BID [facility] Last Admin: 07/17/17 09:13 Dose: 50 mg Sodium Chloride (Nacl 0.9% 1000 Ml) 1,000 mls @ 125 mls/hr IV DIRECT [facility] Isosorbide Mononitrate (Imdur) 30 mg PO DAILY [facility] Last Admin: 07/17/17 09:12 Dose: 30 mg Lamivudine (Epivir) 150 mg PO DAILY [facility] Last Admin: 07/17/17 09:28 Dose: Not Given Lisinopril (Zestril) 40 mg PO QDAY [facility] Last Admin: 07/17/17 09:28 Dose: Not Given Pantoprazole Sodium (Protonix) 40 mg IV BID [facility] Last Admin: 07/17/17 09:14 Dose: 40 mg Peritoneal Dialysis Solution (Dianeal Pd-2 W/1.5% Dextrose) 2,000 ml IP Q6HR [facility] Last Admin: 07/17/17 06:27 Dose: 2,000 ml Potassium Chloride (Potassium Chloride) 40 meq PO QDAY [facility] Admin: 07/17/17 09:13 Dose: 40 meq Review of Systems Constitutional: no weight loss, no weight gain, no fever, no chills, no sweats Ears, nose, mouth and throat: no ear pain, no nose pain, no sinus pressure, no sinus pain Cardiovascular: palpitations, lightheadedness, no chest pain, no orthopnea, no rapid/irregular heart beat, no edema, no syncope, no shortness of breath, no dyspnea on exertion, no paroxysmal nocturnal dyspnea, no leg edema Respiratory: no cough, no shortness of breath, no dyspnea on exertion, no congestion, no wheezing, no pain on inspiration Gastrointestinal: diarrhea, no abdominal pain, no nausea, no vomiting, no constipation, no hematemesis, no coffee ground emesis, no BRBPR, no melena, no hematochezia Genitourinary Female: no pelvic pain, no flank pain, no dysuria, no urinary frequency, no urgency Musculoskeletal: no neck stiffness, no neck pain Integumentary: no rash, no pruritis, no redness, no sores, no wounds Neurological: no head injury, no paralysis, no weakness, no parathesias, no numbness, no tingling, no seizures, no syncope Psychiatric: no anxiety Endocrine: no cold intolerance, no heat intolerance Hematologic/Lymphatic: no easy bruising, no easy bleeding Allergic/Immunologic: no urticaria, no wheezing Physical Examination Vital Signs Temp Pulse Resp BP Pulse Ox 97.8 F 107 H 16 130/70 100 07/14/17 15:42 07/14/17 15:42 07/14/17 15:42 07/14/17 15:42 07/14/17 15:42 General appearance: no acute distress HEENT: Positive: PERRL, Normocephaly, Mucus Membranes Moist Neck: Positive: neck supple, trachea midline Cardiac: Positive: Reg Rate and Rhythm, S1/S2, Systolic Murmur Lungs: Positive: clear to auscultation Neuro: Positive: Grossly Intact, Cranial Nerve 2-12 Intact Abdomen: Positive: Soft. Negative: Tender Skin: Positive: Clear. Negative: Rash, Wound Musculoskeletal: No Fluid Collection, No Pain, Normal Range of Motion Extremities: Absent: edema Results 07/16/17 09:26 07/16/17 09:26 CBC 07/16/17 Range/Units 09:26 WBC 5.2 (4.5-11.0) K/mm3 RBC 3.36 L (3.65-5.03) M/mm3 Hgb 9.4 L (10.1-14.3) gm/dl Hct 28.6 L (30.3-42.9) % Plt Count 270 (140-440) K/mm3 Comprehensive Metabolic Panel 07/16/17 Range/Units 09:26 Sodium 136 L D (137-145) mmol/L Potassium 3.5 L (3.6-5.0) mmol/L Chloride 98.0 (98-107) mmol/L Carbon Dioxide 19 L (22-30) mmol/L BUN 34 H (7-17) mg/dL Creatinine 5.0 H (0.7-1.2) mg/dL Glucose 111 H (65-100) mg/dL Calcium 7.9 L (8.4-10.2) mg/dL - Imaging and Cardiology Echo: report reviewed (04/2016 showed EF 45%, grade 2 diastolic dysfunction, LA mildly dilated, trace AR, mod to severe MR, mild to mod TR, pulm HTN with RVSP 58mmHg. ) EKG: report reviewed, image reviewed EKG interpretations - Telemetry EKG Rhythm: Sinus Rhythm - EKG Sinus rhythms and dysrhythmias: sinus rhythm Supraventricular dysrhythmia: atrial premature complexe Assessment and Plan Assessment: Symptomatic anemia / GIB - improved s/p PRBC tx; no plans for repeat endoscopy at this time per GI Palpitations / transient hypotension - improved ESRD on PD COPD H/o HTN HLP HIV Pulmonary HTN Mod to severe MR H/o diverticulosis & AVMs Plan: Telemetry and ECGs reviewed with no evidence of cardiac arrhythmias, no evidence of atrial fibrillation or atrial flutter. Currently stable cardiac status. Cont home cardiac regimen. Pt may discharge home from cardiology standpoint. Follow up in our office with Dr. Mercado on 08/07/2017 @ 1:00PM. The patient has been seen in conjunction with Dr. Benson who agrees with the assessment and plan of care.
--- NOTE | 2017-07-17 11:28 | Progress Note ---
Assessment and Plan Impression * End-stage renal disease and maintain his beta hemodialysis * Tachycardia * Hypokalemia * Hyponatremia * Severe anemia * HIV disease * Diarrhea Recommendations * Continue CAPD with 1.5% solutions at this time * Hyponatremia is better. Continue fluid restriction * s/p packed RBC transfusion * Administer Procrit as well * Avoid nephrotoxins * Adjust diet and meds for her ESRD state * negative PD fluid for cell count and culture * ok to dc home Subjective Date of service: 07/17/17 Principal diagnosis: Anemia, history of gastric and duodenal AVMs Interval history: resting controlled at this time Objective - Exam Narrative Exam: General appearance: well-developed, well-nourished, appears stated age EENT: PERRL, mucous membranes moist Neck: no JVD, no thyromegaly, no carotid bruit, supple Respiratory: Present: Clear to Ascultation Cardiology: regular, normal heart rate Gastrointestinal: normal, normoactive bowel sounds, other (PD catheter in place ) Integumentary: no rash, other (no edema ) - Vital Signs Vital signs: Vital Signs - 12hr 07/17/17 07/17/17 07/17/17 00:00 04:58 08:00 Temperature 98.7 F Pulse Rate 106 H 91 H 83 Pulse Rate [ Apical] Respiratory 18 Rate Blood Pressure 144/78 O2 Sat by Pulse 99 Oximetry 07/17/17 07/17/17 07/17/17 08:04 08:21 09:12 Temperature 98.1 F Pulse Rate 84 84 Pulse Rate [ 81 Apical] Respiratory 17 18 Rate Blood Pressure 143/75 143/75 O2 Sat by Pulse 99 Oximetry 07/17/17 07/17/17 09:13 09:14 Temperature Pulse Rate 84 84 Pulse Rate [ Apical] Respiratory Rate Blood Pressure 143/75 143/75 O2 Sat by Pulse Oximetry - Lab 07/16/17 09:26 07/16/17 09:26 Most recent lab results Calcium 7.9 mg/dL (8.4-10.2) L 07/16/17 09:26
--- NOTE | 2017-07-17 11:50 | Discharge Summary ---
Providers - Providers Date of Admission: 07/14/17 21:48 Date of discharge: 07/17/17 Attending physician: GEOVANY JETT 07/15/17 05:52 Consult to Physician [CONS] Routine Comment: Consulting Provider: MATTI CORDOVA Physician Instructions: Reason For Exam: gi bleed 07/15/17 05:54 Consult to Physician [CONS] Routine Comment: Consulting Provider: BRENT CINTRON Physician Instructions: Reason For Exam: ESRD on PD 07/16/17 13:04 Consult to Physician [CONS] Routine Comment: Consulting Provider: HAL MERCADO Physician Instructions: Reason For Exam: AFIB WITH RVR Occupational Therapy Evaluate and Treat [CONS] Routine Comment: Reason For Exam: DEBILITY 07/16/17 13:05 Physical Therapy Evaluation and Treat [CONS] Routine Comment: Reason For Exam: DEBILITY Primary care physician: DIANA RUST Hospitalization Condition: Stable Disposition: DC-01 TO HOME OR SELFCARE Core Measure Documentation - Palliative Care Palliative Care/ Comfort Measures: Not Applicable - Core Measures Any of the following diagnoses?: none Exam - Constitutional Vitals: Temp Pulse Resp BP Pulse Ox 98.1 F 84 18 143/75 99 07/17/17 08:21 07/17/17 09:14 07/17/17 08:21 07/17/17 09:14 07/17/17 08:21 Plan Activity: advance as tolerated Diet: low fat, low cholesterol, low salt Additional Instructions: 1.Follow up with PCP in 1 week. 2.Follow up with Dr. Lucas in 1 week. 3.Follow up with Dr. Mauricio in 1 week. 4.Follow up with Dr. Mercado on 08/07/17 at 1:00pm. 5.Continue peritoneal dialysis as scheduled Follow up with: PRIMARY CARE, [Referring] - 3-5 Days
[2017-07-17 12:41] VITALS: BP 122/68
[2017-07-18] MEDS ORDERED: PROTONIX PO SCH (10:00)
== END 2017-07-17 13:20 | disposition home health service (06) | DRG 377 ==
LOC: ED 15:24 → 4A 21:48
PROVIDERS: ADMIT Internal Medicine; ATTEND Internal Medicine
PROC: 30233N1 Transfusion of Nonautologous Red Blood Cells into Peripheral Vein, Percutaneous Approach (ICD-10-PCS; principal; 2017-07-15)
DX: K92.2 Gastrointestinal hemorrhage, unspecified (principal); N18.6 End stage renal disease; B20 Human immunodeficiency virus [HIV] disease; E87.1 Hypo-osmolality and hyponatremia; I12.0 Hypertensive chronic kidney disease with stage 5 chronic kidney disease or end stage renal disease; D64.9 Anemia, unspecified; I48.91 Unspecified atrial fibrillation; J44.9 Chronic obstructive pulmonary disease, unspecified; K21.9 Gastro-esophageal reflux disease without esophagitis; E87.6 Hypokalemia; R00.0 Tachycardia, unspecified; E78.5 Hyperlipidemia, unspecified; I27.20 Pulmonary hypertension, unspecified; Z90.49 Acquired absence of other specified parts of digestive tract; Z79.899 Other long term (current) drug therapy; Z88.2 Allergy status to sulfonamides
CPT/HCPCS: 36415; 80048; 80061; 83930; 83935; 84484; 85014; 85018; 85025; 85027; 86850; 86900; 86901; 86920; 87116; 89051; 93005; 93010; 99291; C9113; J0885; J7040; P9016

== ENCOUNTER 2017-11-01 08:14 | Day surgery (SDC) | payer MEDICARE ==
[~2017-11-01 08:14] MED LIST changes: -HEPARIN SUB-Q ONE; -NACL 0.9% 1000 ML 1,000 ML IV SCH; -PEPCID PO NR; +WATER FOR IRRIG STERILE IR ONE; -ceFAZolin 2 GM in NACL 0.9% 100 ML IV NR
[2017-11-01] MEDS ORDERED: XYLOCAINE 1% 20 mL ONE (08:58)
[2017-11-01] MEDS ORDERED: DIPRIVAN 10 MG/ML IV ONE (08:58)
[2017-11-01] MEDS ORDERED: NACL 0.9% 1000 ML 1,000 ML IV SCH (09:00)
--- NOTE | 2017-11-01 09:26 | Short Stay Summary ---
Short Stay Documentation Date of service: 11/01/17 Narrative H&P: The patient presents for EGD for anemia with a history of AVMs requiring ablation in the past. Now with worsened anemia. - History Past Medical History: COPD, dialysis, HIV/AIDS, hypertension, other ( diveticulosis) Past Surgical History: cholecystectomy, Social history: no significant social history, smoking (former smoker) - Allergies and Medications Current Medications: Allergies Sulfa (Sulfonamide Antibiotics) Allergy (Verified 06/22/16 14:04) Itching sulfamethoxazole [From Bactrim] Allergy (Verified 08/29/16 11:11) Itching trimethoprim [From Bactrim] Allergy (Verified 08/29/16 11:11) Itching Home Medications Medication Instructions Recorded Confirmed Last Taken Type Efavirenz [Sustiva] 600 mg PO DAILY #30 tablet 07/19/13 06/18/17 09/04/16 22:30 Rx lamiVUDine [Epivir] 150 mg PO DAILY #30 tablet 07/19/13 06/18/17 09/04/16 22:30 Rx 150mg Calcitriol [Rocaltrol] 0.5 mcg PO QDAY #30 capsule 05/26/16 06/18/17 09/05/16 10 :00 Rx 0.5mg Carvedilol [Coreg] 6.25 mg PO BID #60 tablet 05/26/16 06/18/17 09/06/16 10:00 Rx Famotidine [Pepcid] 20 mg PO QDAY #30 tablet 05/26/16 06/18/17 09/05/16 10:00 Rx ISOSORBIDE MONOnitrate [Imdur ER] 30 mg PO QDAY #30 tablet 05/26/16 06/18/17 10:00 Rx Pravastatin Sodium [Pravastatin] 80 mg PO QHS 06/22/16 06/18/17 09/05/16 22:30 History 80mg amLODIPine [Norvasc] 10 mg PO DAILY 06/22/16 06/18/17 09/06/16 10:00 History cloNIDine [Catapres] 0.2 mg PO QHS 06/22/16 06/18/17 09/05/16 22:30 History hydrALAZINE [Apresoline TAB] 50 mg PO BID 06/22/16 06/18/17 09/06/16 10:00 History 100mg Abacavir [Ziagen TAB] 300 mg PO BID 06/25/16 06/18/17 09/04/16 22:30 History Ferrous Gluconate [Fergon 325 MG 325 mg PO QDAY #30 tablet 06/26/16 06/18/17 10:00 Rx tab] Lisinopril [Zestril TAB] 40 mg PO QDAY 08/29/16 06/18/17 09/05/16 10:00 History HYDROcodone/APAP 5-325 [[place] 1 each PO Q4HR PRN #20 tablet 09/06/16 06/18/17 Unknown Rx 5-325 mg TAB] Acetaminophen [Tylenol Extra 1,000 mg PO QID PRN #60 tablet 02/13/17 06/18/17 Unknown Rx Strength] Furosemide [Lasix TAB] 20 mg PO QDAY 06/18/17 06/18/17 Unknown History ISOSORBIDE MONOnitrate [Imdur ER] 30 mg PO DAILY 06/18/17 06/18/17 Unknown History Potassium Chloride [Klor-Con] 20 meq PO QDAY 06/18/17 06/18/17 Unknown History Sevelamer Carbonate [Renvela] 800 mg PO QAC 06/18/17 06/18/17 Unknown History Fluconazole [Diflucan TAB] 200 mg PO QDAY #4 tablet 06/26/17 Unknown Rx Ipratropium/Albuterol Sulfate 1 ampul IH Q4H PRN #30 ampul.neb 06/26/17 Unknown Rx [DUONEB *Not for PRN Use*] Prednisone [predniSONE 5 mg (6-Day 5 mg PO .TAPER #1 tab.ds.pk 06/26/17 Unknown Rx Pack, 21 Tabs)] oxyCODONE /ACETAMINOPHEN [Percocet 1 tab PO Q6H PRN #20 tablet 06/26/17 Unknown Rx 5/325 mg] Active Medications Sodium Chloride (Nacl 0.9% 1000 Ml) 1,000 mls @ 50 mls/hr IV DIRECT NIKITA Last Admin: 11/01/17 09:01 Dose: 25 mls - Physical exam General appearance: no acute distress, well-nourished Integumentary: no rash, no growths, no abnormal pigmentation HEENT: Atraumatic, PERRLA, EOMI, Mucous membr. moist/pink Lungs: Clear to auscultation, Normal air movement Breasts: deferred Heart: Regular rate, Normal S1, Normal S2, No murmurs Gastrointestinal: normoactive bowel sounds, no tenderness, no distended, no masses, no guarding, no organomegaly Female Genitourinary: deferred Rectal Exam: deferred Extremities: no ischemia, pulses intact, pulses symmetrical, No edema, normal temperature, Full ROM Neurological: Normal gait, Normal speech, Strength at 5/5 X4 ext, Normal tone, Sensation intact, Cranial nerves 3-12 NL - Brief post op/procedure progress note Date of procedure: 11/01/17 Findings: see dictated report Estimated blood loss: none Pathology: list (antral biopsies for h.pylori) Specimen disposition: to lab Condition: stable - Disposition Condition at discharge: Good Disposition: DC-01 TO HOME OR SELFCARE - Discharge Diagnoses (1) Anemia Status: Acute (2) AVM (arteriovenous malformation) of duodenum, acquired Status: Acute Short Stay Discharge Plan Activity: other (no driving for 24 hours) Weight Bearing Status: Full Weight Bearing Diet: renal Follow up with: DIANA RUST MD [Primary Care Provider] - 7 Days
--- NOTE | 2017-11-01 09:31 | Operative Report ---
Operative Report Operative Report: Date of procedure: 11/01/2017 Procedure: Esophagogastroduodenoscopy with ablation of 3 AVMs of the duodenum and one gastric AVM with argon plasma coagulation. Preprocedure diagnosis: History of anemia with a falling hematocrit. Prior history of AVMs requiring ablation. Post procedure diagnosis: 3 AVMs of the duodenum, 1 small gastric AVM. Antral gastritis. Hiatus hernia. Endoscopist: Dr. Mauricio Anesthesia: Monitored anesthesia care per anesthesia department Medications: Propofol per anesthesia Estimated blood loss: 0 After careful discussion of the nature and purpose of the procedure as well as details the technique risks benefits and alternatives consent was obtained. The patient was placed in the left lateral decubitus position and medicated per anesthesia. The tip of the Mojix EQ 570 video scope was passed per orum under direct vision into the esophagus and advanced into the stomach and descending duodenum. There were 3 AVMs in the second portion of the duodenum. The proximal third portion of the duodenum was normal. AVMs were 2-3 mm in size. Ablated with the argon plasma actuary manager. The duodenal bulb and pylorus are normal. The scope was then withdrawn and stomach and the stomach gently insufflated with air. Mild edema and patchy erythema was present in the antrum consistent with gastritis. 3 biopsies were taken for H. pylori testing. The stomach was further insufflated and the scope was then retroflexed and partially withdrawn. The fundus, and body of the stomach were within normal limits and easily distensible.a small AVM was seen in the cardia which was also ablated with argon plasma actuary manager. The scope was then withdrawn in the forward position. The esophagogastric junction was at 38 cm. A small hiatus hernia was present.. The esophageal body was normal throughout. The procedure was was well tolerated and the patient was observed in recovery. Impressions: 3 AVMs in the duodenum and one AVM in the proximal stomach. Small hiatus hernia. Antral gastritis. Ablation of AVMs with argon plasma actuary manager performed as above. Plan: Office follow-up in 6 months. Await results of biopsies for H. pylori. Electronically signed: Deny Mauricio MD
--- NOTE | 2017-11-01 09:41 | Anesthesia Consultation ---
Anesthesia Consult and Med Hx Date of service: 11/01/17 - Airway Anesthetic Teeth Evaluation: Poor, Edentulous (upper) ROM Head & Neck: Adequate Mental/Hyoid Distance: Adequate Mallampati Class: Class II Intubation Access Assessment: Probably Good - Pulmonary Exam CTA: Yes - Cardiac Exam Cardiac Exam: RRR - Pre-Operative Health Status ASA Pre-Surgery Classification: ASA3 - Pulmonary Hx Smoking: Yes (CIGARETTES 1 PPD X 62 YRS, QUIT 3-1-17) COPD: Yes Hx Pneumonia: Yes - Cardiovascular System Hx Hypertension: Yes (FOR 20+ YRS) Hx Coronary Artery Disease: Yes ( EF 36%, FIXED DEFECT IN APEX) Hx Valvular Heart Disease: Yes (MVP, CHF) - Central Nervous System Hx Seizures: Yes (X1 8 YRS AGO, UNKNOWN ETIOLOGY ) - Endocrine Hx Renal Disease: Yes (esrd, peritoneal dialysis) Hx End Stage Renal Disease: Yes - Hematic Hx Anemia: Yes
--- NOTE | 2017-11-01 09:42 | Anesthesia Day of Surgery ---
Anesthesia Day of Surgery - Day of Surgery Patient Examined: Yes Patient H&P Reviewed: Yes Patient is NPO: Yes Beta Blockers: Yes
[2017-11-01 10:11] VITALS: BP 147/78
== END 2017-11-01 08:15 | disposition home or self-care (01) ==
LOC: GIO 08:14
PROVIDERS: ATTEND Internal Medicine Gastroenterology
DX: K29.50 Unspecified chronic gastritis without bleeding (principal); B96.81 Helicobacter pylori [H. pylori] as the cause of diseases classified elsewhere; K31.819 Angiodysplasia of stomach and duodenum without bleeding; K44.9 Diaphragmatic hernia without obstruction or gangrene; J44.9 Chronic obstructive pulmonary disease, unspecified; I13.2 Hypertensive heart and chronic kidney disease with heart failure and with stage 5 chronic kidney disease, or end stage renal disease; N18.6 End stage renal disease; I50.9 Heart failure, unspecified; I25.10 Atherosclerotic heart disease of native coronary artery without angina pectoris; Z88.2 Allergy status to sulfonamides; Z87.891 Personal history of nicotine dependence; Z99.2 Dependence on renal dialysis
CPT/HCPCS: 43239; 43270; 88305; 88342; J2704; J7030

== ENCOUNTER 2018-01-22 09:44 | Day surgery (SDC) | payer MEDICARE ==
[~2018-01-22 09:44] MED LIST changes: +ANCEF/STERILE WATER 2 GM/20 ML 2 GM/20 ML SYRINGE IV NR; +NACL 0.9% 1000 ML 1,000 ML IV SCH; -WATER FOR IRRIG STERILE IR ONE
[2018-01-22 10:53] LABS: Basophils % (Auto) 0.6 % (0.0-1.8); Eosinophils # (Auto) 0.8 K/mm3 (0.0-0.4); Eosinophils % (Auto) 11.4 % (0.0-4.3); Hematocrit 27.5 % (30.3-42.9); Hemoglobin 9.1 gm/dl (10.1-14.3); Lymphocytes # (Auto) 2.5 K/mm3 (1.2-5.4); Lymphocytes % (Auto) 34.3 % (13.4-35.0); Mean Corpuscular HGB Conc 33 % (30-34); Mean Corpuscular Hemoglobin 30 pg (28-32); Mean Corpuscular Volume 91 fl (79-97); Monocytes # (Auto) 0.8 K/mm3 (0.0-0.8); Monocytes % (Auto) 11.4 % (0.0-7.3); Platelet Count 303 K/mm3 (140-440); Red Blood Count 3.03 M/mm3 (3.65-5.03)
[2018-01-22 10:56] LABS: Red Cell Distribution Width 23.9 % (13.2-15.2)
[2018-01-22 11:04] LABS: INR 1.12 (0.87-1.13)
[2018-01-22 11:05] LABS: Partial Thromboplastin Time 30.8 Sec. (24.2-36.6)
[2018-01-22] MEDS ORDERED: XYLOCAINE 2% INFILTRATI ONE (12:16)
[2018-01-22] MEDS ORDERED: NACL 0.9% 500 ML 500 ML ONE (12:16)
[2018-01-22] MEDS ORDERED: HEPARIN/NS 5000 UNIT/500ML(CATH LAB) 1,000 ML IR ONE (12:16)
[2018-01-22] MEDS ORDERED: ANCEF/STERILE WATER 2 GM/20 ML 2 GM/20 ML SYRINGE IV ONE (12:43)
[2018-01-22] MEDS: VERSED ONE ×4 (12:43→14:25)
[2018-01-22] MEDS: SUBLIMAZE ONE ×4 (12:43→14:25)
[2018-01-22] MEDS: HEPARIN 10,000 UNITS/10 ML ONE ×2 (13:04→13:43)
[2018-01-22] MEDS ORDERED: NITROGLYCERIN SYRINGE 3 ML ONE (13:40)
[2018-01-22] MEDS ORDERED: PLAVIX PO ONE (15:13)
--- NOTE | 2018-01-22 15:32 | Short Stay Summary ---
Short Stay Documentation Date of service: 01/22/18 - History H&P: obtained from office - Allergies and Medications Current Medications: Allergies Sulfa (Sulfonamide Antibiotics) Allergy (Verified 11/26/17 13:10) Itching sulfamethoxazole [From Bactrim] Allergy (Verified 11/26/17 13:10) Itching trimethoprim [From Bactrim] Allergy (Verified 11/26/17 13:10) Itching Home Medications Medication Instructions Recorded Confirmed Last Taken Type lamiVUDine [Epivir] 150 mg PO DAILY #30 tablet 07/19/13 01/22/18 01/21/18 Rx 150mg Calcitriol [Rocaltrol] 0.5 mcg PO QDAY #30 capsule 05/26/16 01/22/18 01/21/18 Rx 0.5mg amLODIPine [Norvasc] 10 mg PO DAILY PRN 06/22/16 01/22/18 09/06/16 10:00 History hydrALAZINE [Apresoline TAB] 50 mg PO BID PRN 06/22/16 01/22/18 01/22/18 10:45 History 50mg Abacavir [Ziagen TAB] 300 mg PO BID 06/25/16 01/22/18 01/21/18 History 300mg Ferrous Gluconate [Fergon 325 MG 325 mg PO QDAY #30 tablet 06/26/16 01/22/18 Rx tab] 325mg Potassium Chloride [Klor-Con] 20 meq PO QDAY 06/18/17 01/22/18 01/21/18 History 20meq Sevelamer Carbonate [Renvela] 800 mg PO QAC 06/18/17 01/22/18 01/21/18 History 800mg Ipratropium/Albuterol Sulfate 1 ampul IH Q4H PRN #30 ampul.neb 06/26/17 Unknown Rx [DUONEB *Not for PRN Use*] Gabapentin [Neurontin] 300 mg PO HS 11/27/17 01/22/18 01/21/18 History 300mg traMADol [Ultram 50 MG tab] 50 mg PO Q4HR PRN 11/27/17 01/22/18 01/21/18 History 50mg Carvedilol [Coreg] 12.5 mg PO BID #60 tablet 11/29/17 01/22/1801/21/18 Rx 12.5mg Famotidine [Pepcid] 10 mg PO BID #60 tablet 11/29/17 01/22/18 01/21/18 Rx 10mg ISOSORBIDE MONOnitrate [Imdur ER] 30 mg PO DAILY tablet 11/29/17 01/22/1801/21 Rx 30mg Pravastatin [Pravachol] 80 mg PO QHS #30 tablet 11/29/17 01/22/18 01/21/18 Rx 80mg Aspirin [Adult Low Dose Aspirin EC] 81 mg PO DAILY #30 tablet. 11/30/1701/21/18 Rx 81mg Active Medications Cefazolin Sodium (Ancef/Sterile Water 2 Gm/20 Ml) 2 gm in 20 mls @ 80 mls/hr IV PREOP NR; Protocol Stop: 01/22/18 23:59 Last Admin: 01/22/18 12:43 Dose: 20 mls Sodium Chloride (Nacl 0.9% 1000 Ml) 1,000 mls @ 42 mls/hr IV DIRECT NIKITA - Physical exam Extremities: abnormal (doppler signals only) - Brief post op/procedure progress note Date of procedure: 01/22/18 Pre-op diagnosis: chronic right leg ischemia Post-op diagnosis: same Procedure: utrasound guided left comon femoral access,right leg angiogram, balloon angioplasty of SFA, popliteal, posterior tibial arteries Anesthesia: MAC Findings: diffuse stenosis of right SFA, popliteal, PT; occluded peroneal and AT from take off Surgeon: RAMEZ URBAN Estimated blood loss: minimal Pathology: none Condition: stable - Disposition Condition at discharge: Good Disposition: DC-01 TO HOME OR SELFCARE Short Stay Discharge Plan Diet: regular Wound: remove dressing (tomorrow) Special Instructions: no heavy lifting Follow up with: RETA PARKER MD [Primary Care Provider] - 7 Days RAMEZ URBAN DO [Staff Physician] - 14 Days Prescriptions: Clopidogrel Bisulfate [Plavix] 75 mg PO DAILY #30 tablet
--- NOTE | 2018-01-22 16:00 | Operative Report ---
Operative Report Operative Report: Operative note: Date: 01/22/2018 Preoperative diagnosis: Chronic right lower extremity ischemia with severe lower extremity weakness and falls, superficial right foot ulcer Postoperative diagnosis: Same. Operation: Ultrasound-guided left common femoral access.Right LE angiogram with runoff. Angioplasty of right SFA, popliteal, posterior tibial artery Surgeon: Zahraa Barraza. Asst.: None Anesthesia: Moderate sedation EBL: Minimal Findings: Patent bilateral common and external iliac arteries, diffusely stenotic right SFA, popliteal. Occluded anterior tibial and peroneal arteries of the takeoff, occluded posterior tibial artery at the ankle Indications: 82-year-old female with complaints of severe lower extremity weakness and causing her falls. She had ABIs that showed 0.2 bilaterally. And toe pressures 0. She was explained risks, benefits and alternatives of performing angiogram with possible revascularization of right leg. She chose to proceed and signed informed consent. Operative details: Patient was brought to the Purification Operator Helper and placed in supine position. Her left groin was prepped and draped in sterile fashion. On the continues ultrasound guidance left common femoral artery was accessed with micropuncture needle after local anesthetic injected. An changed and usual steps to micropuncture sheath. Mendoza wire was inserted and advanced into the aorta, micropuncture sheath was changed to a 5 [place] sheath. It was flushed. Omni Flush catheter was inserted into the distal aorta and bilateral iliac angiogram was performed noting bifurcation. Mendoza wire was advanced to contralateral side and Omni Flush catheter position in the right common femoral artery. Mendoza wire was removed and right lower extremity angiogram with runoff was performed. The findings were mentioned above. Decision to treat patient was heparinized with 5000 units of heparin and 5 [place] access sheath was exchanged to a 6 [place] by 65 cm Terumo guide catheter over Mendoza wire. Patient has such a severe stenosis and the small size of superficial femoral artery on the right that Mendoza wire was actually occlusive. It was changed to V18 wire. This was advanced into distal PT. Balloon angioplasty using a 4 mm balloon was performed of SFA and popliteal artery. Using trailblazer the wire was maneuvered into digital artery. Patient was given additional 2000 units of heparin. V18 was changed to Choice PT and Taper 3 over 2.5 [place] balloon was used to performe angioplasty posterior tibial artery. At the very distal portion of PT same type of the balloon was used with size 2.5 over 2. After balloon angioplasty there was improved flow to the digital arteries. At this point the 014 wire was changed to V18. in Pact DCB 4 x 150 balloon was used throughout SFA and popliteal arteries and each inflated 3 minutes. Post intervention angiogram showed excellent flow to the foot. V18 wire was changed to a [place] wire and sheath pulled to the ipsilateral side. Angiogram confirmed axis in the common femoral artery. Provide was used for closure of the exercise. Patient tolerated procedure well and she was transferred to PACU in stable condition.
[2018-01-22 16:07] VITALS: BP 178/75
== END 2018-01-22 16:40 | disposition home or self-care (01) ==
LOC: CATHLABREC 09:44
PROVIDERS: ATTEND Surgery Vascular Surgery
DX: I70.219 Atherosclerosis of native arteries of extremities with intermittent claudication, unspecified extremity (principal); L97.519 Non-pressure chronic ulcer of other part of right foot with unspecified severity; D64.9 Anemia, unspecified; I12.0 Hypertensive chronic kidney disease with stage 5 chronic kidney disease or end stage renal disease; N18.6 End stage renal disease; E78.5 Hyperlipidemia, unspecified; I48.91 Unspecified atrial fibrillation; I25.10 Atherosclerotic heart disease of native coronary artery without angina pectoris; E78.00 Pure hypercholesterolemia, unspecified; I10 Essential (primary) hypertension; J43.9 Emphysema, unspecified; B20 Human immunodeficiency virus [HIV] disease; F32.9 Major depressive disorder, single episode, unspecified; K21.9 Gastro-esophageal reflux disease without esophagitis; Z90.49 Acquired absence of other specified parts of digestive tract; Z99.2 Dependence on renal dialysis; Z82.49 Family history of ischemic heart disease and other diseases of the circulatory system; Z88.2 Allergy status to sulfonamides; Z88.8 Allergy status to other drugs, medicaments and biological substances; Z79.899 Other long term (current) drug therapy; Z79.01 Long term (current) use of anticoagulants; Z98.41 Cataract extraction status, right eye; Z98.42 Cataract extraction status, left eye; Z91.81 History of falling
CPT/HCPCS: 36415; 37224; 37228; 75625; 75710; 80048; 85025; 85610; 85730; 99156; 99157; C1725; C1760; C1769; C1887; C2623; J0690; J1644; J2250; J3010; J7040; Q9967

== ENCOUNTER 2019-04-11 12:46 | Observation (INO) | payer MEDICARE ==
--- NOTE | 2019-04-11 13:08 | Emergency Department Report ---
Blank Doc - Documentation Documentation: 83-year-old female that presents with GI bleed concern. Was sent by PCP. This initial assessment/diagnostic orders/clinical plan/treatment(s) is/are subject to change based on patient's health status, clinical progression and re- assessment by fellow clinical providers in the ED. Further treatment and workup at subsequent clinical providers discretion. Patient/guardians urged not to elope from the ED as their condition may be serious if not clinically assessed and managed. Initial orders include: 1- Patient sent to MAIN ED for further evaluation and treatment 2- labs 3- UA
[2019-04-11 14:24] LABS: Hematocrit 21.8 % (30.3-42.9); Mean Corpuscular HGB Conc 32 % (30-34); Mean Corpuscular Volume 93 fl (79-97); Platelet Count 405 K/mm3 (140-440); Red Blood Count 2.35 M/mm3 (3.65-5.03)
[2019-04-11 14:27] LABS: Red Cell Distribution Width 25.1 % (13.2-15.2)
[2019-04-11 14:33] LABS: INR 1.08 (0.87-1.13)
[2019-04-11 14:45] LABS: Albumin 3.3 g/dL (3.9-5); Calcium 8.1 mg/dL (8.4-10.2)
[2019-04-11 14:57] LABS: Total Cells Counted 100
[2019-04-11 14:58] LABS: Anisocytosis 2+; Macrocytosis 1+; Ovalocytes Few; Target Cells Few; Tear Drop Cells Few
[2019-04-11 14:59] LABS: Platelet Estimate Consistent w Auto
--- NOTE | 2019-04-11 15:46 | Emergency Department Report ---
ED General Adult HPI - General Chief complaint: GI Bleed Stated complaint: GI BLEED/DOC ORDERED Time Seen by Provider: 04/11/19 13:06 Source: patient Mode of arrival: Wheelchair Limitations: No Limitations - History of Present Illness Initial comments: The patient presents to the emergency department for chief complaint of generalized weakness and fatigue. Patient states that her hemoglobin has dropped greater than 3 points in the last 2 months. Patient was sent to the emergency department by nephrology for further evaluation. Patient denies any blood in her stool but states that she's having diffuse abdominal pain. Patient has a GI doctor and is scheduled for colonoscopy in April. Patient is not sure if she has blood in her stool. Patient denies chest pain, shortness breath, or headache. -: unknown Location: abdomen Radiation: non-radiation Severity scale (0 -10): 3 Quality: aching Consistency: constant Improves with: none Worsens with: none Associated Symptoms: denies other symptoms Treatments Prior to Arrival: none - Related Data Home Medications Medication Instructions Recorded Confirmed Last Taken hydrALAZINE [Apresoline TAB] 50 mg PO BID PRN 06/22/16 02/18/19 02/18/19 Abacavir [Ziagen TAB] 300 mg PO BID 06/25/16 02/18/19 02/18/19 Potassium Chloride [Klor-Con] 20 meq PO QDAY 06/18/17 02/18/19 02/18/19 Sevelamer Carbonate [Renvela] 800 mg PO QAC 06/18/17 02/18/19 02/18/19 Midodrine [Proamatine] 5 mg PO QDAY 02/18/19 02/18/19 02/18/19 Previous Rx's Medication Instructions Recorded Last Taken Type calcitrioL [Rocaltrol] 0.5 mcg PO QDAY #30 capsule 05/26/16 02/18/19 Rx Ferrous Gluconate [Fergon 325 MG 325 mg PO QDAY #30 tablet 06/26/16 02/18/19 Rx tab] Ipratropium/Albuterol Sulfate 1 ampul IH Q4H PRN #30 ampul.neb 06/26/17 02/18/19 Rx [DUONEB *Not for PRN Use*] Famotidine [Pepcid] 10 mg PO BID #60 tablet 11/29/17 02/18/19 Rx Pravastatin [Pravachol] 80 mg PO QHS #30 tablet 11/29/17 02/18/19 Rx carvediloL [Coreg] 12.5 mg PO BID #60 tablet 11/29/17 02/18/19 Rx Aspirin [Adult Low Dose Aspirin EC] 81 mg PO DAILY #30 tablet. 11/30/17 02/18/19 Rx Clopidogrel Bisulfate [Plavix] 75 mg PO DAILY #30 tablet 01/22/18 02/18/19 Rx Allergies Allergy/AdvReac Type Severity Reaction Status Date / Time Sulfa (Sulfonamide Allergy Itching Verified 11/26/17 13:10 Antibiotics) sulfamethoxazole Allergy Itching Verified 11/26/17 13:10 [From Bactrim] trimethoprim [From Bactrim] Allergy Itching Verified 11/26/17 13:10 ED Review of Systems ROS: Stated complaint: GI BLEED/DOC ORDERED Other details as noted in HPI Comment: All other systems reviewed and negative Constitutional: denies: chills, fever Eyes: denies: eye pain, eye discharge, vision change ENT: denies: ear pain, throat pain Respiratory: denies: cough, shortness of breath, wheezing Cardiovascular: denies: chest pain, palpitations Endocrine: no symptoms reported Gastrointestinal: abdominal pain. denies: nausea, diarrhea Genitourinary: denies: urgency, dysuria, discharge Musculoskeletal: denies: back pain, joint swelling, arthralgia Skin: denies: rash, lesions Neurological: denies: headache, weakness, paresthesias Psychiatric: denies: anxiety, depression Hematological/Lymphatic: denies: easy bleeding, easy bruising ED Past Medical Hx - Past Medical History Hx Hypertension: Yes Hx Heart Attack/AMI: No Hx Congestive Heart Failure: Yes Hx Diabetes: No Hx GERD: Yes Hx Renal Disease: Yes (esrd, peritoneal dialysis) Hx Seizures: Yes Hx Asthma: No Hx COPD: Yes Hx HIV: Yes (last CD4 count 1400 2018) Additional medical history: Diverticulitis - Surgical History Hx Pacemaker: No Hx Internal Defibrillator: No Hx Cholecystectomy: Yes (07-25-13) Additional Surgical History: Colon resection 2012 (uncertain indication). r ight hip (ball and joint) - Social History Smoking Status: Former Smoker Substance Use Type: None - Medications Home Medications: Home Medications Medication Instructions Recorded Confirmed Last Taken Type calcitrioL [Rocaltrol] 0.5 mcg PO QDAY #30 capsule 05/26/16 02/18/19 02/18/19 Rx hydrALAZINE [Apresoline TAB] 50 mg PO BID PRN 06/22/16 02/18/19 02/18/19 History Abacavir [Ziagen TAB] 300 mg PO BID 06/25/16 02/18/19 02/18/19 History Ferrous Gluconate [Fergon 325 MG 325 mg PO QDAY #30 tablet 06/26/16 02/18/19 02/18/19 Rx tab] Potassium Chloride [Klor-Con] 20 meq PO QDAY 06/18/17 02/18/19 02/18/19 History Sevelamer Carbonate [Renvela] 800 mg PO QAC 06/18/17 02/18/19 02/18/19 History Ipratropium/Albuterol Sulfate 1 ampul IH Q4H PRN #30 ampul.neb 06/26/17 02/18/19 02/18/19 Rx [DUONEB *Not for PRN Use*] Famotidine [Pepcid] 10 mg PO BID #60 tablet 11/29/17 02/18/19 02/18/19 Rx Pravastatin [Pravachol] 80 mg PO QHS #30 tablet 11/29/17 02/18/19 02/18/19 Rx carvediloL [Coreg] 12.5 mg PO BID #60 tablet 11/29/17 02/18/19 02/18/19 Rx Aspirin [Adult Low Dose Aspirin EC] 81 mg PO DAILY #30 tablet. 11/30/17 02/18/19 02/18/19 Rx Clopidogrel Bisulfate [Plavix] 75 mg PO DAILY #30 tablet 01/22/18 02/18/19 02/18/19 Rx Midodrine [Proamatine] 5 mg PO QDAY 02/18/19 02/18/19 02/18/19 History ED Physical Exam - General Limitations: No Limitations General appearance: alert, in no apparent distress - Head Head exam: Present: atraumatic, normocephalic - Eye Eye exam: Present: normal appearance, PERRL, EOMI - ENT ENT exam: Present: mucous membranes moist - Neck Neck exam: Present: normal inspection - Respiratory Respiratory exam: Present: normal lung sounds bilaterally. Absent: respiratory distress - Cardiovascular Cardiovascular Exam: Present: regular rate, normal rhythm. Absent: systolic murmur, diastolic murmur, rubs, gallop - GI/Abdominal GI/Abdominal exam: Present: soft, tenderness (diffusely tender to palpation), normal bowel sounds. Absent: distended - Rectal Rectal exam: Present: heme (+) stool (chaperoned by Nurse Jenny RN) - Extremities Exam Extremities exam: Present: normal inspection - Back Exam Back exam: Present: normal inspection - Neurological Exam Neurological exam: Present: alert, oriented X3, CN II-XII intact. Absent: motor sensory deficit - Psychiatric Psychiatric exam: Present: normal affect, normal mood - Skin Skin exam: Present: warm, dry, intact, normal color. Absent: rash ED Course Vital Signs 04/11/19 04/11/19 04/11/19 13:06 14:52 15:00 Temperature 97.5 F L Pulse Rate 95 H 81 Respiratory 16 15 15 Rate Blood Pressure 108/63 125/59 O2 Sat by Pulse 100 98 Oximetry 04/11/19 15:15 Temperature Pulse Rate 76 Respiratory 16 Rate Blood Pressure 125/59 O2 Sat by Pulse 100 Oximetry ED Medical Decision Making - Lab Data Result diagrams: 04/11/19 13:41 04/11/19 13:41 Lab Results 04/11/19 04/11/19 04/11/19 Range/Units 13:41 13:41 13:41 WBC 8.2 (4.5-11.0) K/mm3 RBC 2.35 L (3.65-5.03) M/mm3 Hgb 7.0 L (10.1-14.3) gm/dl Hct 21.8 L (30.3-42.9) % MCV 93 (79-97) fl MCH 30 (28-32) pg MCHC 32 (30-34) % RDW 25.1 H (13.2-15.2) % Plt Count 405 (140-440) K/mm3 Add Manual Diff Complete Total Counted 100 Seg Neuts % (Manual) 64.0 (40.0-70.0) % Band Neutrophils % 0 % Lymphocytes % (Manual) 25.0 (13.4-35.0) % Reactive Lymphs % (Man) 0 % Monocytes % (Manual) 7.0 (0.0-7.3) % Eosinophils % (Manual) 3.0 (0.0-4.3) % Basophils % (Manual) 1.0 (0.0-1.8) % Metamyelocytes % 0 % Myelocytes % 0 % Promyelocytes % 0 % Blast Cells % 0 % Nucleated RBC % 1.0 H (0.0-0.9) % Seg Neutrophils # Man 5.2 (1.8-7.7) K/mm3 Band Neutrophils # 0.0 K/mm3 Lymphocytes # (Manual) 2.1 (1.2-5.4) K/mm3 Abs React Lymphs (Man) 0.0 K/mm3 Monocytes # (Manual) 0.6 (0.0-0.8) K/mm3 Eosinophils # (Manual) 0.2 (0.0-0.4) K/mm3 Basophils # (Manual) 0.1 (0.0-0.1) K/mm3 Metamyelocytes # 0.0 K/mm3 Myelocytes # 0.0 K/mm3 Promyelocytes # 0.0 K/mm3 Blast Cells # 0.0 K/mm3 WBC Morphology Not Reportable Hypersegmented Neuts Not Reportable Hyposegmented Neuts Not Reportable Hypogranular Neuts Not Reportable Smudge Cells Not Reportable Toxic Granulation Not Reportable Toxic Vacuolation Not Reportable Dohle Bodies Not Reportable Pelger-Huet Anomaly Not Reportable Pablo Rods Not Reportable Platelet Estimate Consistent w auto Clumped Platelets Not Reportable Plt Clumps, EDTA Not Reportable Large Platelets Not Reportable Giant Platelets Not Reportable Platelet Satelliting Not Reportable Plt Morphology Comment Not Reportable RBC Morphology Not Reportable Dimorphic RBCs Not Reportable Polychromasia 1+ Hypochromasia Not Reportable Poikilocytosis Not Reportable Anisocytosis 2+ Microcytosis Not Reportable Macrocytosis 1+ Spherocytes Not Reportable Pappenheimer Bodies Not Reportable Sickle Cells Not Reportable Target Cells Few Tear Drop Cells Few Ovalocytes Few Helmet Cells Not Reportable Villarreal[place] Bodies Not Reportable [place] Rings Not Reportable [place] Cells Not Reportable Bite Cells Not Reportable Crenated Cell Not Reportable Elliptocytes Not Reportable Acanthocytes (Spur) Not Reportable Rouleaux Not Reportable Hemoglobin C Crystals Not Reportable Schistocytes Not Reportable Malaria parasites Not Reportable Rony Bodies Not Reportable Hem Pathologist Commnt No PT 14.1 (12.2-14.9) Sec. INR 1.08 (0.87-1.13) APTT 29.0 (24.2-36.6) Sec. Sodium 134 L (137-145) mmol/L Potassium 4.1 (3.6-5.0) mmol/L Chloride 92.1 L (98-107) mmol/L Carbon Dioxide 21 L (22-30) mmol/L Anion Gap 25 mmol/L BUN 53 H (7-17) mg/dL Creatinine 10.2 H (0.7-1.2) mg/dL Estimated GFR 4 ml/min BUN/Creatinine Ratio 5 % Glucose 85 (65-100) mg/dL Calcium 8.1 L (8.4-10.2) mg/dL Total Bilirubin 0.20 (0.1-1.2) mg/dL AST 13 (5-40) units/L ALT 5 L (7-56) units/L Alkaline Phosphatase 60 (35-129) units/L Total Protein 6.6 (6.3-8.2) g/dL Albumin 3.3 L (3.9-5) g/dL Albumin/Globulin Ratio 1.0 % Lipase 86 H (13-60) units/L Blood Type Antibody Screen 04/11/19 04/11/19 Range/Units 15:49 15:49 WBC (4.5-11.0) K/mm3 RBC (3.65-5.03) M/mm3 Hgb (10.1-14.3) gm/dl Hct (30.3-42.9) % MCV (79-97) fl MCH (28-32) pg MCHC (30-34) % RDW (13.2-15.2) % Plt Count (140-440) K/mm3 Add Manual Diff Total Counted Seg Neuts % (Manual) (40.0-70.0) % Band Neutrophils % % Lymphocytes % (Manual) (13.4-35.0) % Reactive Lymphs % (Man) % Monocytes % (Manual) (0.0-7.3) % Eosinophils % (Manual) (0.0-4.3) % Basophils % (Manual) (0.0-1.8) % Metamyelocytes % % Myelocytes % % Promyelocytes % % Blast Cells % % Nucleated RBC % (0.0-0.9) % Seg Neutrophils # Man (1.8-7.7) K/mm3 Band Neutrophils # K/mm3 Lymphocytes # (Manual) (1.2-5.4) K/mm3 Abs React Lymphs (Man) K/mm3 Monocytes # (Manual) (0.0-0.8) K/mm3 Eosinophils # (Manual) (0.0-0.4) K/mm3 Basophils # (Manual) (0.0-0.1) K/mm3 Metamyelocytes # K/mm3 Myelocytes # K/mm3 Promyelocytes # K/mm3 Blast Cells # K/mm3 WBC Morphology Hypersegmented Neuts Hyposegmented Neuts Hypogranular Neuts Smudge Cells Toxic Granulation Toxic Vacuolation Dohle Bodies Pelger-Huet Anomaly Pablo Rods Platelet Estimate Clumped Platelets Plt Clumps, EDTA Large Platelets Giant Platelets Platelet Satelliting Plt Morphology Comment RBC Morphology Dimorphic RBCs Polychromasia Hypochromasia Poikilocytosis Anisocytosis Microcytosis Macrocytosis Spherocytes Pappenheimer Bodies Sickle Cells Target Cells Tear Drop Cells Ovalocytes Helmet Cells Villarreal[place] Bodies [place] Rings [place] Cells Bite Cells Crenated Cell Elliptocytes Acanthocytes (Spur) Rouleaux Hemoglobin C Crystals Schistocytes Malaria parasites Rony Bodies Hem Pathologist Commnt PT 14.3 (12.2-14.9) Sec. INR 1.10 (0.87-1.13) APTT 26.4 (24.2-36.6) Sec. Sodium (137-145) mmol/L Potassium (3.6-5.0) mmol/L Chloride (98-107) mmol/L Carbon Dioxide (22-30) mmol/L Anion Gap mmol/L BUN (7-17) mg/dL Creatinine (0.7-1.2) mg/dL Estimated GFR ml/min BUN/Creatinine Ratio % Glucose (65-100) mg/dL Calcium (8.4-10.2) mg/dL Total Bilirubin (0.1-1.2) mg/dL AST (5-40) units/L ALT (7-56) units/L Alkaline Phosphatase (35-129) units/L Total Protein (6.3-8.2) g/dL Albumin (3.9-5) g/dL Albumin/Globulin Ratio % Lipase (13-60) units/L Blood Type A POSITIVE Antibody Screen Negative - Radiology Data Radiology results: report reviewed - Medical Decision Making Discussed results with patient and her daughter Critical care attestation.: If time is entered above; I have spent that time in minutes in the direct care of this critically ill patient, excluding procedure time. ED Disposition Clinical Impression: GI bleed, Diverticulosis Disposition: OP ADMIT IP TO THIS HOSP Is pt being admited?: Yes Does the pt Need Aspirin: No Condition: Fair Referrals: RETA PARKER MD [Primary Care Provider] - 3-5 Days Forms: Accompanied Note
[2019-04-11 16:28] LABS: INR 1.1 (0.87-1.13)
[2019-04-11 16:29] LABS: Partial Thromboplastin Time 26.4 Sec. (24.2-36.6)
--- NOTE | 2019-04-11 17:32 | Cat Scan Report ---
CT ABDOMEN AND PELVIS WITH IV CONTRAST INDICATION: MAIN: abdominal pain on dialysis 80ml Omni 300. COMPARISON: None available. TECHNIQUE: Axial CT images were obtained through the abdomen and pelvis after 100 mL IV contrast. All CT scans a t this location are performed using CT dose reduction for ALARA by means of automated exposure contro l. FINDINGS -- ABDOMEN: Lung Bases: No acute abnormality. Liver: Normal. Gallbladder: Removed. Bile Ducts: Normal. Pancreas: Normal. Spleen: Normal. Adrenals: Normal. Right Kidney and Proximal Ureter: Mildly atrophic. Left Kidney and Proximal Ureter: Mildly atrophic. Stomach and Bowel: Normal. Lymph Nodes: No significant adenopathy. Aorta: Severe atherosclerotic calcification of a nondilated abdominal aorta.. IVC: Normal. Additional Findings: None. FINDINGS -- PELVIS: Urinary Bladder and Distal Ureters: Normal. Reproductive Organs: No acute abnormality. Appendix: Normal. Bowel: No acute abnormality. Free Fluid: Small amount of free fluid is identified throughout the abdomen and pelvis.. Lymph Nodes: No significant adenopathy. Additional Findings: Peritoneal dialysis catheter noted within the pelvis.. Skeletal System: Streak artifact from right total hip arthroplasty.. IMPRESSION: Sigmoid diverticulosis without diverticulitis. Small free fluid within the abdomen and pelvis likely secondary to peritoneal dialysis. Signer Name: Damon Ingram MD Signed: 04/11/2019 5:27 PM Workstation Name: [email or web address]
--- NOTE | 2019-04-11 19:11 | History and Physical Report ---
History of Present Illness Date of examination: 04/11/19 Date of admission: 04/11/2019 Chief complaint: Severe weakness for 3 days and lightheadedness for 3 days History of present illness: 83-year-old -[place] female with history of HIV on antiretrovirals, hy pertension and end-stage renal disease on peritoneal dialysis was sent by her tar chaser for dropping hemoglobin and hematocrit from 11 to 7 g. Hemoglobin and hematocrit were 11 on 02/20/2019 when the patient was discharged from this facility. No shortness of breath. Patient was supposed to have a colonoscopy in April. No black stools or hematemesis. No vaginal bleeding. Increasing fatigue and shortness of breath present. Also lightheadedness present. Especially on standing. No chest pain. No orthopnea. Exertion is an exacerbating factor and restless relieving factor. Last admission of January 2019 was reviewed. Patient was admitted for end-stage renal disease HIV and metabolic acidosis and severe malnutrition. Past Medical History Hypertension: Yes Hx Congestive Heart Failure: Yes GERD: Yes Renal Disease: Yes (esrd, peritoneal dialysis) Seizures: Yes COPD: Yes Hx HIV: Yes (last CD4 count 1400 2018) Additional medical history: Diverticulitis Surgical History Cholecystectomy: Yes (07-25-13) Additional Surgical History: Colon resection 2012 (uncertain indication). right hip (ball and joint) Social History Smoking Status: Former Smoker Substance Use Type: None Family history Htn Medications Home Medications: Home Medications Medication Instructions Recorded Confirmed Last Taken Type calcitrioL [Rocaltrol] 0.5 mcg PO QDAY #30 capsule 05/26/16 02/18/19 02/18/19 Rx hydrALAZINE [Apresoline TAB] 50 mg PO BID PRN 06/22/16 02/18/19 02/18/19 History Abacavir [Ziagen TAB] 300 mg PO BID 06/25/16 02/18/19 02/18/19 History Ferrous Gluconate [Fergon 325 MG 325 mg PO QDAY #30 tablet 06/26/16 02/18/19 02/18/19 Rx tab] Potassium Chloride [Klor-Con] 20 meq PO QDAY 06/18/17 02/18/19 02/18/19 History Sevelamer Carbonate [Renvela] 800 mg PO QAC 06/18/17 02/18/19 02/18/19 History Ipratropium/Albuterol Sulfate 1 ampul IH Q4H PRN #30 ampul.neb 06/26/17 02/18/19 02/18/19 Rx [DUONEB *Not for PRN Use*] Famotidine [Pepcid] 10 mg PO BID #60 tablet 11/29/17 02/18/19 02/18/19 Rx Pravastatin [Pravachol] 80 mg PO QHS #30 tablet 11/29/17 02/18/19 02/18/19 Rx carvediloL [Coreg] 12.5 mg PO BID #60 tablet 11/29/17 02/18/19 02/18/19 Rx Aspirin [Adult Low Dose Aspirin EC] 81 mg PO DAILY #30 tablet. 11/30/17 02/18/19 02/18/19 Rx Clopidogrel Bisulfate [Plavix] 75 mg PO DAILY #30 tablet 01/22/18 02/18/19 02/18/19 Rx Midodrine [Proamatine] 5 mg PO QDAY 02/18/19 02/18/19 02/18/19 History Review of Systems ROS: Stated complaint: GI BLEED/DOC ORDERED Other details as noted in HPI Comment: All other systems reviewed and negative Constitutional: denies: chills, fever Eyes: denies: eye pain, eye discharge, vision change ENT: denies: ear pain, throat pain Respiratory: denies: cough, shortness of breath, wheezing Cardiovascular: denies: chest pain, palpitations Endocrine: no symptoms reported Gastrointestinal: abdominal pain. denies: nausea, diarrhea Genitourinary: denies: urgency, dysuria, discharge Musculoskeletal: denies: back pain, joint swelling, arthralgia Skin: denies: rash, lesions Neurological: denies: headache, weakness, paresthesias Psychiatric: denies: anxiety, depression Hematological/Lymphatic: denies: easy bleeding, easy bruising 14 point review of systems done--otherwise negative. Medications and Allergies Allergies Allergy/AdvReac Type Severity Reaction Status Date / Time Sulfa (Sulfonamide Allergy Itching Verified 11/26/17 13:10 Antibiotics) sulfamethoxazole Allergy Itching Verified 11/26/17 13:10 [From Bactrim] trimethoprim [From Bactrim] Allergy Itching Verified 11/26/17 13:10 Home Medications Medication Instructions Recorded Confirmed Last Taken Type calcitrioL [Rocaltrol] 0.5 mcg PO QDAY #30 capsule 05/26/16 02/18/19 02/18/19 Rx hydrALAZINE [Apresoline TAB] 50 mg PO BID PRN 06/22/16 02/18/19 02/18/19 History Abacavir [Ziagen TAB] 300 mg PO BID 06/25/16 02/18/19 02/18/19 History Ferrous Gluconate [Fergon 325 MG 325 mg PO QDAY #30 tablet 06/26/16 02/18/19 02/18/19 Rx tab] Potassium Chloride [Klor-Con] 20 meq PO QDAY 06/18/17 02/18/19 02/18/19 History Sevelamer Carbonate [Renvela] 800 mg PO QAC 06/18/17 02/18/19 02/18/19 History Ipratropium/Albuterol Sulfate 1 ampul IH Q4H PRN #30 ampul.neb 06/26/17 02/18/19 02/18/19 Rx [DUONEB *Not for PRN Use*] Famotidine [Pepcid] 10 mg PO BID #60 tablet 11/29/17 02/18/19 02/18/19 Rx Pravastatin [Pravachol] 80 mg PO QHS #30 tablet 11/29/17 02/18/19 02/18/19 Rx carvediloL [Coreg] 12.5 mg PO BID #60 tablet 11/29/17 02/18/19 02/18/19 Rx Aspirin [Adult Low Dose Aspirin EC] 81 mg PO DAILY #30 tablet. 11/30/17 02/18/19 02/18/19 Rx Clopidogrel Bisulfate [Plavix] 75 mg PO DAILY #30 tablet 01/22/18 02/18/19 02/18/19 Rx Midodrine [Proamatine] 5 mg PO QDAY 02/18/19 02/18/19 02/18/19 History Exam - Constitutional Vitals: Temp Pulse Resp BP Pulse Ox 97.5 F L 76 16 123/63 100 04/11/19 13:06 04/11/19 18:54 04/11/19 18:54 04/11/19 18:54 04/11/19 18:54 General appearance: Present: no acute distress, well-nourished - EENT Eyes: Present: PERRL ENT: hearing intact, clear oral mucosa, other (Pale conjunctival membranes) - Neck Neck: Present: supple, normal ROM - Respiratory Respiratory effort: normal Respiratory: bilateral: CTA - Cardiovascular Heart rate: 78 Rhythm: regular Heart Sounds: Present: S1 & S2. Absent: rub, click - Extremities Extremities: no ischemia, pulses intact, pulses symmetrical, No edema Peripheral Pulses: within normal limits - Abdominal General gastrointestinal: Present: soft, non-tender, non-distended, normal bowel sounds Female genitourinary: Present: normal - Integumentary Integumentary: Present: clear, warm, dry - Musculoskeletal Musculoskeletal: gait normal, strength equal bilaterally - Psychiatric Psychiatric: appropriate mood/affect, intact judgment & insight - Neurologic Neurologic: CNII-XII intact, moves all extremities - Allied Health Allied health notes reviewed: nursing, case management Results - Labs CBC & Chem 7: 04/11/19 13:41 04/11/19 13:41 Labs: Laboratory Last Values WBC 8.2 K/mm3 (4.5-11.0) 04/11/19 13:41 RBC 2.35 M/mm3 (3.65-5.03) L 04/11/19 13:41 Hgb 7.0 gm/dl (10.1-14.3) L 04/11/19 13:41 Hct 21.8 % (30.3-42.9) L 04/11/19 13:41 MCV 93 fl (79-97) 04/11/19 13:41 MCH 30 pg (28-32) 04/11/19 13:41 MCHC 32 % (30-34) 04/11/19 13:41 RDW 25.1 % (13.2-15.2) H 04/11/19 13:41 Plt Count 405 K/mm3 (140-440) 04/11/19 13:41 Add Manual Diff Complete 04/11/19 13:41 Total Counted 100 04/11/19 13:41 Seg Neuts % (Manual) 64.0 % (40.0-70.0) 04/11/19 13:41 Band Neutrophils % 0 % 04/11/19 13:41 Lymphocytes % (Manual) 25.0 % (13.4-35.0) 04/11/19 13:41 Reactive Lymphs % (Man) 0 % 04/11/19 13:41 Monocytes % (Manual) 7.0 % (0.0-7.3) 04/11/19 13:41 Eosinophils % (Manual) 3.0 % (0.0-4.3) 04/11/19 13:41 Basophils % (Manual) 1.0 % (0.0-1.8) 04/11/19 13:41 Metamyelocytes % 0 % 04/11/19 13:41 Myelocytes % 0 % 04/11/19 13:41 Promyelocytes % 0 % 04/11/19 13:41 Blast Cells % 0 % 04/11/19 13:41 Nucleated RBC % 1.0 % (0.0-0.9) H 04/11/19 13:41 Seg Neutrophils # Man 5.2 K/mm3 (1.8-7.7) 04/11/19 13:41 Band Neutrophils # 0.0 K/mm3 04/11/19 13:41 Lymphocytes # (Manual) 2.1 K/mm3 (1.2-5.4) 04/11/19 13:41 Abs React Lymphs (Man) 0.0 K/mm3 04/11/19 13:41 Monocytes # (Manual) 0.6 K/mm3 (0.0-0.8) 04/11/19 13:41 Eosinophils # (Manual) 0.2 K/mm3 (0.0-0.4) 04/11/19 13:41 Basophils # (Manual) 0.1 K/mm3 (0.0-0.1) 04/11/19 13:41 Metamyelocytes # 0.0 K/mm3 04/11/19 13:41 Myelocytes # 0.0 K/mm3 04/11/19 13:41 Promyelocytes # 0.0 K/mm3 04/11/19 13:41 Blast Cells # 0.0 K/mm3 04/11/19 13:41 WBC Morphology Not Reportable 04/11/19 13:41 Hypersegmented Neuts Not Reportable 04/11/19 13:41 Hyposegmented Neuts Not Reportable 04/11/19 13:41 Hypogranular Neuts Not Reportable 04/11/19 13:41 Smudge Cells Not Reportable 04/11/19 13:41 Toxic Granulation Not Reportable 04/11/19 13:41 Toxic Vacuolation Not Reportable 04/11/19 13:41 Dohle Bodies Not Reportable 04/11/19 13:41 Pelger-Huet Anomaly Not Reportable 04/11/19 13:41 Pablo Rods Not Reportable 04/11/19 13:41 Platelet Estimate Consistent w auto 04/11/19 13:41 Clumped Platelets Not Reportable 04/11/19 13:41 Plt Clumps, EDTA Not Reportable 04/11/19 13:41 Large Platelets Not Reportable 04/11/19 13:41 Giant Platelets Not Reportable 04/11/19 13:41 Platelet Satelliting Not Reportable 04/11/19 13:41 Plt Morphology Comment Not Reportable 04/11/19 13:41 RBC Morphology Not Reportable 04/11/19 13:41 Dimorphic RBCs Not Reportable 04/11/19 13:41 Polychromasia 1+ 04/11/19 13:41 Hypochromasia Not Reportable 04/11/19 13:41 Poikilocytosis Not Reportable 04/11/19 13:41 Anisocytosis 2+ 04/11/19 13:41 Microcytosis Not Reportable 04/11/19 13:41 Macrocytosis 1+ 04/11/19 13:41 Spherocytes Not Reportable 04/11/19 13:41 Pappenheimer Bodies Not Reportable 04/11/19 13:41 Sickle Cells Not Reportable 04/11/19 13:41 Target Cells Few 04/11/19 13:41 Tear Drop Cells Few 04/11/19 13:41 Ovalocytes Few 04/11/19 13:41 Helmet Cells Not Reportable 04/11/19 13:41 Villarreal-[place] Bodies Not Reportable 04/11/19 13:41 [place] Rings Not Reportable 04/11/19 13:41 [place] Cells Not Reportable 04/11/19 13:41 Bite Cells Not Reportable 04/11/19 13:41 Crenated Cell Not Reportable 04/11/19 13:41 Elliptocytes Not Reportable 04/11/19 13:41 Acanthocytes (Spur) Not Reportable 04/11/19 13:41 Rouleaux Not Reportable 04/11/19 13:41 Hemoglobin C Crystals Not Reportable 04/11/19 13:41 Schistocytes Not Reportable 04/11/19 13:41 Malaria parasites Not Reportable 04/11/19 13:41 Rony Bodies Not Reportable 04/11/19 13:41 Hem Pathologist Commnt No 04/11/19 13:41 PT 14.3 Sec. (12.2-14.9) 04/11/19 15:49 INR 1.10 (0.87-1.13) 04/11/19 15:49 APTT 26.4 Sec. (24.2-36.6) 04/11/19 15:49 Sodium 134 mmol/L (137-145) L 04/11/19 13:41 Potassium 4.1 mmol/L (3.6-5.0) 04/11/19 13:41 Chloride 92.1 mmol/L (98-107) L 04/11/19 13:41 Carbon Dioxide 21 mmol/L (22-30) L 04/11/19 13:41 Anion Gap 25 mmol/L 04/11/19 13:41 BUN 53 mg/dL (7-17) H 04/11/19 13:41 Creatinine 10.2 mg/dL (0.7-1.2) H 04/11/19 13:41 Estimated GFR 4 ml/min 04/11/19 13:41 BUN/Creatinine Ratio 5 % 04/11/19 13:41 Glucose 85 mg/dL (65-100) 04/11/19 13:41 Calcium 8.1 mg/dL (8.4-10.2) L 04/11/19 13:41 Total Bilirubin 0.20 mg/dL (0.1-1.2) 04/11/19 13:41 AST 13 units/L (5-40) 04/11/19 13:41 ALT 5 units/L (7-56) L 04/11/19 13:41 Alkaline Phosphatase 60 units/L (35-129) 04/11/19 13:41 Total Protein 6.6 g/dL (6.3-8.2) 04/11/19 13:41 Albumin 3.3 g/dL (3.9-5) L 04/11/19 13:41 Albumin/Globulin Ratio 1.0 % 04/11/19 13:41 Lipase 86 units/L (13-60) H 04/11/19 13:41 Blood Type A POSITIVE 04/11/19 15:49 Antibody Screen Negative 04/11/19 15:49 Short CBC 04/11/19 04/11/19 04/11/19 Range/Units 13:41 13:41 13:41 WBC 8.2 (4.5-11.0) K/mm3 RBC 2.35 L (3.65-5.03) M/mm3 Hgb 7.0 L (10.1-14.3) gm/dl Hct 21.8 L (30.3-42.9) % MCV 93 (79-97) fl MCH 30 (28-32) pg MCHC 32 (30-34) % RDW 25.1 H (13.2-15.2) % Plt Count 405 (140-440) K/mm3 Add Manual Diff Complete Total Counted 100 Seg Neuts % (Manual) 64.0 (40.0-70.0) % Band Neutrophils % 0 % Lymphocytes % (Manual) 25.0 (13.4-35.0) % Reactive Lymphs % (Man) 0 % Monocytes % (Manual) 7.0 (0.0-7.3) % Eosinophils % (Manual) 3.0 (0.0-4.3) % Basophils % (Manual) 1.0 (0.0-1.8) % Metamyelocytes % 0 % Myelocytes % 0 % Promyelocytes % 0 % Blast Cells % 0 % Nucleated RBC % 1.0 H (0.0-0.9) % Seg Neutrophils # Man 5.2 (1.8-7.7) K/mm3 Band Neutrophils # 0.0 K/mm3 Lymphocytes # (Manual) 2.1 (1.2-5.4) K/mm3 Abs React Lymphs (Man) 0.0 K/mm3 Monocytes # (Manual) 0.6 (0.0-0.8) K/mm3 Eosinophils # (Manual) 0.2 (0.0-0.4) K/mm3 Basophils # (Manual) 0.1 (0.0-0.1) K/mm3 Metamyelocytes # 0.0 K/mm3 Myelocytes # 0.0 K/mm3 Promyelocytes # 0.0 K/mm3 Blast Cells # 0.0 K/mm3 WBC Morphology Not Reportable Hypersegmented Neuts Not Reportable Hyposegmented Neuts Not Reportable Hypogranular Neuts Not Reportable Smudge Cells Not Reportable Toxic Granulation Not Reportable Toxic Vacuolation Not Reportable Dohle Bodies Not Reportable Pelger-Huet Anomaly Not Reportable Pablo Rods Not Reportable Platelet Estimate Consistent w auto Clumped Platelets Not Reportable Plt Clumps, EDTA Not Reportable Large Platelets Not Reportable Giant Platelets Not Reportable Platelet Satelliting Not Reportable Plt Morphology Comment Not Reportable RBC Morphology Not Reportable Dimorphic RBCs Not Reportable Polychromasia 1+ Hypochromasia Not Reportable Poikilocytosis Not Reportable Anisocytosis 2+ Microcytosis Not Reportable Macrocytosis 1+ Spherocytes Not Reportable Pappenheimer Bodies Not Reportable Sickle Cells Not Reportable Target Cells Few Tear Drop Cells Few Ovalocytes Few Helmet Cells Not Reportable Villarreal-[place] Bodies Not Reportable [place] Rings Not Reportable [place] Cells Not Reportable Bite Cells Not Reportable Crenated Cell Not Reportable Elliptocytes Not Reportable Acanthocytes (Spur) Not Reportable Rouleaux Not Reportable Hemoglobin C Crystals Not Reportable Schistocytes Not Reportable Malaria parasites Not Reportable Rony Bodies Not Reportable Hem Pathologist Commnt No PT 14.1 (12.2-14.9) Sec. INR 1.08 (0.87-1.13) APTT 29.0 (24.2-36.6) Sec. Sodium 134 L (137-145) mmol/L Potassium 4.1 (3.6-5.0) mmol/L Chloride 92.1 L (98-107) mmol/L Carbon Dioxide 21 L (22-30) mmol/L Anion Gap 25 mmol/L BUN 53 H (7-17) mg/dL Creatinine 10.2 H (0.7-1.2) mg/dL Estimated GFR 4 ml/min BUN/Creatinine Ratio 5 % Glucose 85 (65-100) mg/dL Calcium 8.1 L (8.4-10.2) mg/dL Total Bilirubin 0.20 (0.1-1.2) mg/dL AST 13 (5-40) units/L ALT 5 L (7-56) units/L Alkaline Phosphatase 60 (35-129) units/L Total Protein 6.6 (6.3-8.2) g/dL Albumin 3.3 L (3.9-5) g/dL Albumin/Globulin Ratio 1.0 % Lipase 86 H (13-60) units/L 04/11/ Range/Units 15:49 WBC (4.5-11.0) K/mm3 RBC (3.65-5.03) M/mm3 Hgb (10.1-14.3) gm/dl Hct (30.3-42.9) % MCV (79-97) fl MCH (28-32) pg MCHC (30-34) % RDW (13.2-15.2) % Plt Count (140-440) K/mm3 Add Manual Diff Total Counted Seg Neuts % (Manual) (40.0-70.0) % Band Neutrophils % % Lymphocytes % (Manual) (13.4-35.0) % Reactive Lymphs % (Man) % Monocytes % (Manual) (0.0-7.3) % Eosinophils % (Manual) (0.0-4.3) % Basophils % (Manual) (0.0-1.8) % Metamyelocytes % % Myelocytes % % Promyelocytes % % Blast Cells % % Nucleated RBC % (0.0-0.9) % Seg Neutrophils # Man (1.8-7.7) K/mm3 Band Neutrophils # K/mm3 Lymphocytes # (Manual) (1.2-5.4) K/mm3 Abs React Lymphs (Man) K/mm3 Monocytes # (Manual) (0.0-0.8) K/mm3 Eosinophils # (Manual) (0.0-0.4) K/mm3 Basophils # (Manual) (0.0-0.1) K/mm3 Metamyelocytes # K/mm3 Myelocytes # K/mm3 Promyelocytes # K/mm3 Blast Cells # K/mm3 WBC Morphology Hypersegmented Neuts Hyposegmented Neuts Hypogranular Neuts Smudge Cells Toxic Granulation Toxic Vacuolation Dohle Bodies Pelger-Huet Anomaly Pablo Rods Platelet Estimate Clumped Platelets Plt Clumps, EDTA Large Platelets Giant Platelets Platelet Satelliting Plt Morphology Comment RBC Morphology Dimorphic RBCs Polychromasia Hypochromasia Poikilocytosis Anisocytosis Microcytosis Macrocytosis Spherocytes Pappenheimer Bodies Sickle Cells Target Cells Tear Drop Cells Ovalocytes Helmet Cells Villarreal-[place] Bodies [place] Rings [place] Cells Bite Cells Crenated Cell Elliptocytes Acanthocytes (Spur) Rouleaux Hemoglobin C Crystals Schistocytes Malaria parasites Rony Bodies Hem Pathologist Commnt PT 14.3 (12.2-14.9) Sec. INR 1.10 (0.87-1.13) APTT 26.4 (24.2-36.6) Sec. Sodium (137-145) mmol/L Potassium (3.6-5.0) mmol/L Chloride (98-107) mmol/L Carbon Dioxide (22-30) mmol/L Anion Gap mmol/L BUN (7-17) mg/dL Creatinine (0.7-1.2) mg/dL Estimated GFR ml/min BUN/Creatinine Ratio % Glucose (65-100) mg/dL Calcium (8.4-10.2) mg/dL Total Bilirubin (0.1-1.2) mg/dL AST (5-40) units/L ALT (7-56) units/L Alkaline Phosphatase (35-129) units/L Total Protein (6.3-8.2) g/dL Albumin (3.9-5) g/dL Albumin/Globulin Ratio % Lipase (13-60) units/L BMP 04/11/19 13:41 Sodium 134 L Potassium 4.1 Chloride 92.1 L Carbon Dioxide 21 L BUN 53 H Creatinine 10.2 H Glucose 85 Calcium 8.1 L Liver Function 04/11/19 Range/Units 13:41 Total Bilirubin 0.20 (0.1-1.2) mg/dL AST 13 (5-40) units/L ALT 5 L (7-56) units/L Alkaline Phosphatase 60 (35-129) units/L Albumin 3.3 L (3.9-5) g/dL - Imaging and Cardiology EKG: report reviewed (Sinus rhythm, heart rate of 78/min, borderline prolonged NH interval) Assessment and Plan Advance Directives: Yes (Full code) VTE prophylaxis?: Chemical Plan of care discussed with patient/family: Yes - Patient Problems (1) Symptomatic anemia Current Visit: Yes Status: Acute Plan to address problem: Patient's hemoglobin dropped from 11g to 7 g in 7 weeks Transfuse 2 units of packed red blood cells Etiology of anemia unclear GI consult requested (2) End stage renal disease on dialysis Current Visit: Yes Status: Chronic Plan to address problem: Nephrology consult requested Patient on peritoneal dialysis (3) Hypertension Current Visit: Yes Status: Chronic Qualifiers: Hypertension type: essential hypertension Qualified Code(s): I10 - Essential (primary) hypertension Plan to address problem: Continue antihypertensives (4) HIV (human immunodeficiency virus infection) Current Visit: Yes Status: Chronic Qualifiers: HIV symptom status: asymptomatic Qualified Code(s): Z21 - Asymptomatic human immunodeficiency virus [HIV] infection status Plan to address problem: Continue antiretrovirals (5) Coronary artery disease Current Visit: Yes Status: Chronic Qualifiers: Coronary Disease-Associated Artery/Lesion type: creek artery [place] vs. transplanted heart: creek heart Plan to address problem: Continue Plavix (6) GERD (gastroesophageal reflux disease) Current Visit: Yes Status: Chronic Qualifiers: Esophagitis presence: without esophagitis Qualified Code(s): K21.9 - Gastro-esophageal reflux disease without esophagitis Plan to address problem: Continue famotidine (7) COPD (chronic obstructive pulmonary disease) Current Visit: No Status: Chronic Qualifiers: Emphysema type: centrilobular Plan to address problem: Continue DuoNebs as needed there is a scratch through (8) DVT prophylaxis Current Visit: No Status: Acute Plan to address problem: SCDs and GI prophylaxis. No heparin at this time
[2019-04-11] MEDS ORDERED: hydrALAZINE 25 MG TAB PO PRN (19:39)
[2019-04-11] MEDS ORDERED: IPRATROPIUM/ALBUTEROL SULFATE 3 ML AMPUL.NEB IH PRN (19:39)
[2019-04-11] MEDS ORDERED: oxyCODONE /ACETAMINOPHEN 5-325MG TAB PO PRN (19:45)
[2019-04-11] MEDS ORDERED: ONDANSETRON 4 MG/2 ML INJ IV PRN (19:45)
[2019-04-11] MEDS ORDERED: HYDROmorphone 1 MG/1 ML INJ IV PRN (19:45)
[2019-04-11] MEDS ORDERED: ACETAMINOPHEN 325 MG TAB PO PRN (19:45)
[2019-04-11] MEDS ORDERED: SODIUM CHLORIDE 0.9% 500 ML 500 ML IV SCH (19:58)
[2019-04-11] MEDS ORDERED: FERROUS GLUCONATE 324 MG TAB PO SCH (22:00)
[2019-04-11] MEDS ORDERED: HEPARIN 5,000 UNIT/1 ML VIAL SUB-Q SCH (22:00)
[2019-04-12] MEDS: FAMOTIDINE 10 MG TAB PO SCH ×2 (00:23→11:07)
[2019-04-12] MEDS: POTASSIUM CHLORIDE 20 MEQ PACKET PO SCH ×2 (00:24→11:07)
[2019-04-12] MEDS: MIDODRINE 5 MG TAB PO SCH ×2 (00:24→11:07)
[2019-04-12] MEDS: SEVELAMER CARBONATE 800 MG TAB PO SCH ×3 (08:44→16:36)
[2019-04-12] MEDS ORDERED: FERROUS GLUCONATE 324 MG TAB PO SCH (10:00)
--- NOTE | 2019-04-12 11:41 | Consultation ---
History of Present Illness - Reason for Consult Consult date: 04/12/19 end stage renal disease - History of Present Illness 83-year-old -[place] woman with history of HIV on antiretrovirals, hypertension, and end-stage renal disease on peritoneal dialysis who was sent for dropping hemoglobin and hematocrit from 11 to 7 g. Last PD session was overnight 04/10-04/11; she denies any problems with PD. No drain pain, no abnormal drainage from PD catheter, no constipation. Notes good volume status and home BPs. Regarding anemia, no black stools or hematemesis. Today, she notes that she feels well and would like to go home after her blood transfusion is complete. Able to do PD at home; unable to recall prescription but notes daughter takes care of it. Past History Past Medical History: ESRD Past Surgical History: No surgical history Social history: no significant social history Family history: no significant family history Medications and Allergies Allergies Allergy/AdvReac Type Severity Reaction Status Date / Time Sulfa (Sulfonamide Allergy Itching Verified 11/26/17 13:10 Antibiotics) sulfamethoxazole Allergy Itching Verified 11/26/17 13:10 [From Bactrim] trimethoprim [From Bactrim] Allergy Itching Verified 11/26/17 13:10 Home Medications Medication Instructions Recorded Confirmed Last Taken Type calcitrioL [Rocaltrol] 0.5 mcg PO QDAY #30 capsule 05/26/16 04/11/19 04/11/19 Rx Abacavir [Ziagen TAB] 300 mg PO BID 06/25/16 04/11/19 1 Day Ago History ~04/10/19 Ferrous Gluconate [Fergon 325 MG 325 mg PO QDAY #30 tablet 06/26/16 04/11/19 02/18/19 Rx tab] Potassium Chloride [Klor-Con] 20 meq PO QDAY 06/18/17 04/11/19 02/18/19 History Sevelamer Carbonate [Renvela] 800 mg PO QAC 06/18/17 04/11/19 04/11/19 History Pravastatin [Pravachol] 80 mg PO QHS #30 tablet 11/29/17 04/11/19 02/18/19 Rx carvediloL [Coreg] 12.5 mg PO BID #60 tablet 11/29/17 04/11/19 04/11/19 Rx Aspirin [Adult Low Dose Aspirin EC] 81 mg PO DAILY #30 tablet. 11/30/17 04/11/19 1 Day Ago Rx ~04/10/19 Clopidogrel Bisulfate [Plavix] 75 mg PO DAILY #30 tablet 01/22/18 04/11/19 04/10/19 Rx Cinacalcet [Sensipar] 30 mg PO QDAY 04/11/19 04/11/19 Unknown History Dolutegravir [Tivicay] 1 tab PO DAILY 04/11/19 04/11/19 Unknown History Famotidine [Pepcid] 1 tab PO DAILY 04/11/19 04/11/19 Unknown History Furosemide [Lasix TAB] 80 mg PO DAILY 04/11/19 04/11/19 Unknown History hydrALAZINE [Apresoline] 25 mg PO DAILY PRN 04/11/19 04/11/19 Unknown History lamiVUDine [Lamivudine] 1 tab PO QHS 04/11/19 04/11/19 04/10/19 History Active Meds: Active Medications Acetaminophen (Tylenol) 650 mg PO Q4H PRN PRN Reason: Pain MILD(1-3)/Fever >100.5/RUTH Albuterol/Ipratropium (Duoneb *Not For Prn Use*) 1 ampul IH Q4H PRN PRN Reason: Shortness Of Breath Famotidine (Pepcid) 10 mg PO BID [facility] Last Admin: 04/12/19 11:07 Dose: 10 mg Documented by: Ferrous Gluconate (Fergon) 324 mg PO QDAY [facility] Last Admin: 04/12/19 11:07 Dose: 324 mg Documented by: Hydralazine HCl (Apresoline) 50 mg PO BID PRN PRN Reason: high BP Hydromorphone HCl (Dilaudid) 0.5 mg IV Q3H PRN PRN Reason: Pain , Severe (7-10) Sodium Chloride (Nacl 0.9% 500 Ml) 500 mls @ 0 mls/hr IV ONCE [facility] Stop: 04/12/19 19:57 Midodrine (Proamatine) 5 mg PO QDAY [facility] Last Admin: 04/12/19 11:07 Dose: 5 mg Documented by: Ondansetron HCl (Zofran) 4 mg IV Q8H PRN PRN Reason: Nausea And Vomiting Oxycodone/Acetaminophen (Percocet 5/325) 1 tab PO Q6H PRN PRN Reason: Pain, Moderate (4-6) Potassium Chloride (Potassium Chloride) 20 meq PO QDAY [facility] Last Admin: 04/12/19 11:07 Dose: 20 meq Documented by: Sevelamer Carbonate (Renvela) 800 mg PO QAC [facility] Last Admin: 04/12/19 08:44 Dose: 800 mg Documented by: Sodium Chloride (Sodium Chloride Flush Syringe 10 Ml) 10 ml IV BID [facility] Last Admin: 04/12/19 11:07 Dose: 10 ml Documented by: Sodium Chloride (Sodium Chloride Flush Syringe 10 Ml) 10 ml IV PRN PRN PRN Reason: LINE FLUSH Review of Systems Ears, nose, mouth and throat: no ear pain Cardiovascular: no chest pain, no orthopnea, no edema Respiratory: no cough, no shortness of breath, no dyspnea on exertion, no congestion Gastrointestinal: no abdominal pain, no nausea, no vomiting, no diarrhea, no co nstipation Genitourinary Female: no dysuria Musculoskeletal: no muscle weakness, no muscle cramps Integumentary: no rash Neurological: no weakness, no headaches, no migraines Psychiatric: no anxiety Exam - Vital Signs Vital signs: Vital Signs Temp Pulse Resp BP Pulse Ox 97.5 F L 95 H 16 108/63 100 04/11/19 13:06 04/11/19 13:06 04/11/19 13:06 04/11/19 13:06 04/11/19 13:06 - Physical Exam Narrative exam: General appearance: Present: no acute distress, well-nourished Eyes: Present: PERRL ENT: hearing intact, clear oral mucosa Neck: Present: supple, normal ROM Respiratory: bilateral: CTA CV: regular, S1 & S2. Extremities: no ischemia, pulses intact, pulses symmetrical, No edema Gastrointestinal: soft, non-tender, non-distended, normal bowel sounds Integumentary: clear, warm, dry Musculoskeletal: gait normal, strength equal bilaterally Psychiatric: appropriate mood/affect, intact judgment & insight Neurologic: CNII-XII intact, moves all extremities Results - Lab Results 04/12/19 13:21 04/12/19 13:21 Most recent lab results Calcium 8.1 mg/dL (8.4-10.2) L 04/11/19 13:41 Assessment and Plan # ESRD on PD: no acute indication for renal replacement; will continue PD overnight if remains inpatient - avoid nephrotoxins - renally dose meds - daily labs # Hyperkalemia: medical management for now, ok to return home and perform home PD # Acidosis: PD as above # Anemia: s/p PRBCs, defer management to primary/GI. [facility] outpatient # HTN: BP elevated, will use 1.5% dextrose for now for UF # Malnutrition: low albumin noted, improve protein intake. Discuss with outpatient professional programmer analyst
--- NOTE | 2019-04-12 12:51 | Gastroenterology Consultation ---
History of Present Illness - Reason for Consult Consult date: 04/12/19 Anemia (A on C) Requesting physician: GEOVANY JETT - History of Present Illness The patient was admitted with weakness and noted to have acute on chronic anemia (hct 21, baseline 26). She has a hx of gastric/duodenal AVM (treated 2017) but has had no recent melena, hematemesis, abdominal pain. She has not been abusing NSAIDs, and is not on chronic anticoagulation. She is due for a colonoscopy and has one scheduled in about [address] Mauricio. She is compliant with PD and her HIV meds without recent change. Past History Past Medical History: heart failure, HIV/AIDS, renal failure (Chronic PD) Past Surgical History: cholecystectomy, total hip replacement, Other (PD catheter, colon resection) Social history: denies: alcohol abuse, prescription drug abuse Family history: no significant family history Medications and Allergies Allergies Allergy/AdvReac Type Severity Reaction Status Date / Time Sulfa (Sulfonamide Allergy Itching Verified 11/26/17 13:10 Antibiotics) sulfamethoxazole Allergy Itching Verified 11/26/17 13:10 [From Bactrim] trimethoprim [From Bactrim] Allergy Itching Verified 11/26/17 13:10 Home Medications Medication Instructions Recorded Confirmed Last Taken Type calcitrioL [Rocaltrol] 0.5 mcg PO QDAY #30 capsule 05/26/16 04/11/19 04/11/19 Rx Abacavir [Ziagen TAB] 300 mg PO BID 06/25/16 04/11/19 1 Day Ago History ~04/10/19 Ferrous Gluconate [Fergon 325 MG 325 mg PO QDAY #30 tablet 06/26/16 04/11/19 02/18/19 Rx tab] Potassium Chloride [Klor-Con] 20 meq PO QDAY 06/18/17 04/11/19 02/18/19 History Sevelamer Carbonate [Renvela] 800 mg PO QAC 06/18/17 04/11/19 04/11/19 History Pravastatin [Pravachol] 80 mg PO QHS #30 tablet 11/29/17 04/11/19 02/18/19 Rx carvediloL [Coreg] 12.5 mg PO BID #60 tablet 11/29/17 04/11/19 04/11/19 Rx Aspirin [Adult Low Dose Aspirin EC] 81 mg PO DAILY #30 tablet. 11/30/17 04/11/19 1 Day Ago Rx ~04/10/19 Clopidogrel Bisulfate [Plavix] 75 mg PO DAILY #30 tablet 01/22/18 04/11/19 04/10/19 Rx Cinacalcet [Sensipar] 30 mg PO QDAY 04/11/19 04/11/19 Unknown History Dolutegravir [Tivicay] 1 tab PO DAILY 04/11/19 04/11/19 Unknown History Famotidine [Pepcid] 1 tab PO DAILY 04/11/19 04/11/19 Unknown History Furosemide [Lasix TAB] 80 mg PO DAILY 04/11/19 04/11/19 Unknown History hydrALAZINE [Apresoline] 25 mg PO DAILY PRN 04/11/19 04/11/19 Unknown History lamiVUDine [Lamivudine] 1 tab PO QHS 04/11/19 04/11/19 04/10/19 History Active Meds: Active Medications Acetaminophen (Tylenol) 650 mg PO Q4H PRN PRN Reason: Pain MILD(1-3)/Fever >100.5/RUTH Albuterol/Ipratropium (Duoneb *Not For Prn Use*) 1 ampul IH Q4H PRN PRN Reason: Shortness Of Breath Famotidine (Pepcid) 10 mg PO BID [facility] Last Admin: 04/12/19 11:07 Dose: 10 mg Documented by: Ferrous Gluconate (Fergon) 324 mg PO QDAY [facility] Last Admin: 04/12/19 11:07 Dose: 324 mg Documented by: Hydralazine HCl (Apresoline) 50 mg PO BID PRN PRN Reason: high BP Hydromorphone HCl (Dilaudid) 0.5 mg IV Q3H PRN PRN Reason: Pain , Severe (7-10) Sodium Chloride (Nacl 0.9% 500 Ml) 500 mls @ 0 mls/hr IV ONCE [facility] Stop: 04/12/19 19:57 Midodrine (Proamatine) 5 mg PO QDAY [facility] Last Admin: 04/12/19 11:07 Dose: 5 mg Documented by: Ondansetron HCl (Zofran) 4 mg IV Q8H PRN PRN Reason: Nausea And Vomiting Oxycodone/Acetaminophen (Percocet 5/325) 1 tab PO Q6H PRN PRN Reason: Pain, Moderate (4-6) Potassium Chloride (Potassium Chloride) 20 meq PO QDAY [facility] Last Admin: 04/12/19 11:07 Dose: 20 meq Documented by: Sevelamer Carbonate (Renvela) 800 mg PO QAC [facility] Last Admin: 04/12/19 08:44 Dose: 800 mg Documented by: Sodium Chloride (Sodium Chloride Flush Syringe 10 Ml) 10 ml IV BID [facility] Last Admin: 04/12/19 11:07 Dose: 10 ml Documented by: Sodium Chloride (Sodium Chloride Flush Syringe 10 Ml) 10 ml IV PRN PRN PRN Reason: LINE FLUSH I HAVE REVIEWED AND RECONCILED MEDICATIONS Review of Systems - Review of Systems All systems: negative (as noted in the HPI.) Exam - Constitutional Vital Signs: Temp Pulse Resp BP Pulse Ox 98.6 F 73 18 153/71 100 04/12/19 10:57 04/12/19 10:57 04/12/19 10:57 04/12/19 10:57 04/12/19 10:57 General appearance: no acute distress - Respiratory Respiratory effort: normal Respiratory: bilateral: CTA - Cardiovascular Rhythm: regular Heart Sounds: Present: S1 & S2 - Gastrointestinal General gastrointestinal: Present: soft, non-tender, non-distended, other (PD catheter) - Labs CBC & Chem 7: 04/11/19 13:41 04/11/19 13:41 Lab Results: Laboratory Results - last 24 hr 04/11/19 04/11/19 04/11/19 13:41 13:41 13:41 WBC 8.2 RBC 2.35 L Hgb 7.0 L Hct 21.8 L MCV 93 MCH 30 MCHC 32 RDW 25.1 H Plt Count 405 Add Manual Diff Complete Total Counted 100 Seg Neuts % (Manual) 64.0 Band Neutrophils % 0 Lymphocytes % (Manual) 25.0 Reactive Lymphs % (Man) 0 Monocytes % (Manual) 7.0 Eosinophils % (Manual) 3.0 Basophils % (Manual) 1.0 Metamyelocytes % 0 Myelocytes % 0 Promyelocytes % 0 Blast Cells % 0 Nucleated RBC % 1.0 H Seg Neutrophils # Man 5.2 Band Neutrophils # 0.0 Lymphocytes # (Manual) 2.1 Abs React Lymphs (Man) 0.0 Monocytes # (Manual) 0.6 Eosinophils # (Manual) 0.2 Basophils # (Manual) 0.1 Metamyelocytes # 0.0 Myelocytes # 0.0 Promyelocytes # 0.0 Blast Cells # 0.0 WBC Morphology Not Reportable Hypersegmented Neuts Not Reportable Hyposegmented Neuts Not Reportable Hypogranular Neuts Not Reportable Smudge Cells Not Reportable Toxic Granulation Not Reportable Toxic Vacuolation Not Reportable Dohle Bodies Not Reportable Pelger-Huet Anomaly Not Reportable Pablo Rods Not Reportable Platelet Estimate Consistent w auto Clumped Platelets Not Reportable Plt Clumps, EDTA Not Reportable Large Platelets Not Reportable Giant Platelets Not Reportable Platelet Satelliting Not Reportable Plt Morphology Comment Not Reportable RBC Morphology Not Reportable Dimorphic RBCs Not Reportable Polychromasia 1+ Hypochromasia Not Reportable Poikilocytosis Not Reportable Anisocytosis 2+ Microcytosis Not Reportable Macrocytosis 1+ Spherocytes Not Reportable Pappenheimer Bodies Not Reportable Sickle Cells Not Reportable Target Cells Few Tear Drop Cells Few Ovalocytes Few Helmet Cells Not Reportable Villarreal-[place] Bodies Not Reportable [place] Rings Not Reportable [place] Cells Not Reportable Bite Cells Not Reportable Crenated Cell Not Reportable Elliptocytes Not Reportable Acanthocytes (Spur) Not Reportable Rouleaux Not Reportable Hemoglobin C Crystals Not Reportable Schistocytes Not Reportable Malaria parasites Not Reportable Rony Bodies Not Reportable Hem Pathologist Commnt No PT 14.1 INR 1.08 APTT 29.0 Sodium 134 L Potassium 4.1 Chloride 92.1 L Carbon Dioxide 21 L Anion Gap 25 BUN 53 H Creatinine 10.2 H Estimated GFR 4 BUN/Creatinine Ratio 5 Glucose 85 Hemoglobin A1c Calcium 8.1 L Total Bilirubin 0.20 AST 13 ALT 5 L Alkaline Phosphatase 60 Total Protein 6.6 Albumin 3.3 L Albumin/Globulin Ratio 1.0 Lipase 86 H Blood Type Antibody Screen Crossmatch 04/11/19 04/11/19 04/11/19 13:41 15:49 15:49 WBC RBC Hgb Hct MCV MCH MCHC RDW Plt Count Add Manual Diff Total Counted Seg Neuts % (Manual) Band Neutrophils % Lymphocytes % (Manual) Reactive Lymphs % (Man) Monocytes % (Manual) Eosinophils % (Manual) Basophils % (Manual) Metamyelocytes % Myelocytes % Promyelocytes % Blast Cells % Nucleated RBC % Seg Neutrophils # Man Band Neutrophils # Lymphocytes # (Manual) Abs React Lymphs (Man) Monocytes # (Manual) Eosinophils # (Manual) Basophils # (Manual) Metamyelocytes # Myelocytes # Promyelocytes # Blast Cells # WBC Morphology Hypersegmented Neuts Hyposegmented Neuts Hypogranular Neuts Smudge Cells Toxic Granulation Toxic Vacuolation Dohle Bodies Pelger-Huet Anomaly Pablo Rods Platelet Estimate Clumped Platelets Plt Clumps, EDTA Large Platelets Giant Platelets Platelet Satelliting Plt Morphology Comment RBC Morphology Dimorphic RBCs Polychromasia Hypochromasia Poikilocytosis Anisocytosis Microcytosis Macrocytosis Spherocytes Pappenheimer Bodies Sickle Cells Target Cells Tear Drop Cells Ovalocytes Helmet Cells Villarreal-[place] Bodies [place] Rings Kusum Cells Bite Cells Crenated Cell Elliptocytes Acanthocytes (Spur) Rouleaux Hemoglobin C Crystals Schistocytes Malaria parasites Rony Bodies Hem Pathologist Commnt PT 14.3 INR 1.10 APTT 26.4 Sodium Potassium Chloride Carbon Dioxide Anion Gap BUN Creatinine Estimated GFR BUN/Creatinine Ratio Glucose Hemoglobin A1c 5.6 Calcium Total Bilirubin AST ALT Alkaline Phosphatase Total Protein Albumin Albumin/Globulin Ratio Lipase Blood Type A POSITIVE Antibody Screen Negative Crossmatch See Detail Assessment and Plan - Patient Problems (1) Symptomatic anemia Current Visit: Yes Status: Acute Plan to address problem: - No gross bleeding, and hct near baseline; also has HIV and ESRD on dialysis, so likely multifactorial. - Given hx of upper GI AVMs, also possible to have colon AVMs, and has a colonoscopy arranged in 10 days. - OK to d/c home since no gross bleeding; follow up has already been arranged.
[2019-04-12 13:56] LABS: Basophils # (Auto) 0.1 K/mm3 (0.0-0.1); Basophils % (Auto) 0.6 % (0.0-1.8); Eosinophils # (Auto) 0.5 K/mm3 (0.0-0.4); Eosinophils % (Auto) 5.7 % (0.0-4.3); Hematocrit 29.5 % (30.3-42.9); Hemoglobin 10.3 gm/dl (10.1-14.3); Lymphocytes # (Auto) 2.3 K/mm3 (1.2-5.4); Lymphocytes % (Auto) 27.9 % (13.4-35.0); Mean Corpuscular HGB Conc 35 % (30-34); Mean Corpuscular Volume 91 fl (79-97); Monocytes # (Auto) 0.9 K/mm3 (0.0-0.8); Monocytes % (Auto) 11.7 % (0.0-7.3); Platelet Count 324 K/mm3 (140-440); Red Blood Count 3.24 M/mm3 (3.65-5.03)
[2019-04-12 13:57] LABS: Hematocrit 30.2 % (30.3-42.9); Hemoglobin 10.3 gm/dl (10.1-14.3); Mean Corpuscular HGB Conc 34 % (30-34); Mean Corpuscular Volume 91 fl (79-97); Platelet Count 338 K/mm3 (140-440); Red Blood Count 3.31 M/mm3 (3.65-5.03)
[2019-04-12 14:07] LABS: Red Cell Distribution Width 21.3 % (13.2-15.2)
[2019-04-12 14:09] LABS: Albumin 3.2 g/dL (3.9-5); BUN/Creatinine Ratio 5; Blood Urea Nitrogen 56 mg/dL (7-17); Calcium 7.8 mg/dL (8.4-10.2); Hemolysis Index 5
[2019-04-12 14:11] LABS: Red Cell Distribution Width 21.5 % (13.2-15.2)
[2019-04-12 14:12] LABS: Alanine Aminotransferase < 5 units/L (7-56)
--- NOTE | 2019-04-12 14:23 | Progress Note ---
Hospitalist Physical - Constitutional Vitals: Temp Pulse Resp BP Pulse Ox 98.6 F 73 18 153/71 100 04/12/19 10:57 04/12/19 10:57 04/12/19 10:57 04/12/19 10:57 04/12/19 10:57 General appearance: Present: no acute distress, well-nourished Results - Labs CBC & Chem 7: 04/12/19 13:21 04/12/19 13:21 Labs: Laboratory Last Values WBC 7.7 K/mm3 (4.5-11.0) 04/12/19 13:21 WBC 8.1 K/mm3 (4.5-11.0) 04/12/19 13:21 RBC 3.24 M/mm3 (3.65-5.03) L 04/12/19 13:21 RBC 3.31 M/mm3 (3.65-5.03) L 04/12/19 13:21 Hgb 10.3 gm/dl (10.1-14.3) 04/12/19 13:21 Hgb 10.3 gm/dl (10.1-14.3) D 04/12/19 13:21 Hct 29.5 % (30.3-42.9) L D 04/12/19 13:21 Hct 30.2 % (30.3-42.9) L 04/12/19 13:21 MCV 91 fl (79-97) 04/12/19 13:21 MCV 91 fl (79-97) 04/12/19 13:21 MCH 31 pg (28-32) 04/12/19 13:21 MCH 32 pg (28-32) 04/12/19 13:21 MCHC 34 % (30-34) 04/12/19 13:21 MCHC 35 % (30-34) H 04/12/19 13:21 RDW 21.3 % (13.2-15.2) H 04/12/19 13:21 RDW 21.5 % (13.2-15.2) H 04/12/19 13:21 Plt Count 324 K/mm3 (140-440) 04/12/19 13:21 Plt Count 338 K/mm3 (140-440) 04/12/19 13:21 Lymph % (Auto) 27.9 % (13.4-35.0) 04/12/19 13:21 [place] % (Auto) 11.7 % (0.0-7.3) H 04/12/19 13:21 Eos % (Auto) 5.7 % (0.0-4.3) H 04/12/19 13:21 Baso % (Auto) 0.6 % (0.0-1.8) 04/12/19 13:21 Lymph # 2.3 K/mm3 (1.2-5.4) 04/12/19 13:21 [place] # 0.9 K/mm3 (0.0-0.8) H 04/12/19 13:21 Eos # 0.5 K/mm3 (0.0-0.4) H 04/12/19 13:21 Baso # 0.1 K/mm3 (0.0-0.1) 04/12/19 13:21 Add Manual Diff Complete 04/11/19 13:41 Total Counted 100 04/11/19 13:41 Seg Neutrophils % 54.1 % (40.0-70.0) 04/12/19 13:21 Seg Neuts % (Manual) 64.0 % (40.0-70.0) 04/11/19 13:41 Band Neutrophils % 0 % 04/11/19 13:41 Lymphocytes % (Manual) 25.0 % (13.4-35.0) 04/11/19 13:41 Reactive Lymphs % (Man) 0 % 04/11/19 13:41 Monocytes % (Manual) 7.0 % (0.0-7.3) 04/11/19 13:41 Eosinophils % (Manual) 3.0 % (0.0-4.3) 04/11/19 13:41 Basophils % (Manual) 1.0 % (0.0-1.8) 04/11/19 13:41 Metamyelocytes % 0 % 04/11/19 13:41 Myelocytes % 0 % 04/11/19 13:41 Promyelocytes % 0 % 04/11/19 13:41 Blast Cells % 0 % 04/11/19 13:41 Nucleated RBC % 1.0 % (0.0-0.9) H 04/11/19 13:41 Seg Neutrophils # 4.4 K/mm3 (1.8-7.7) 04/12/19 13:21 Seg Neutrophils # Man 5.2 K/mm3 (1.8-7.7) 04/11/19 13:41 Band Neutrophils # 0.0 K/mm3 04/11/19 13:41 Lymphocytes # (Manual) 2.1 K/mm3 (1.2-5.4) 04/11/19 13:41 Abs React Lymphs (Man) 0.0 K/mm3 04/11/19 13:41 Monocytes # (Manual) 0.6 K/mm3 (0.0-0.8) 04/11/19 13:41 Eosinophils # (Manual) 0.2 K/mm3 (0.0-0.4) 04/11/19 13:41 Basophils # (Manual) 0.1 K/mm3 (0.0-0.1) 04/11/19 13:41 Metamyelocytes # 0.0 K/mm3 04/11/19 13:41 Myelocytes # 0.0 K/mm3 04/11/19 13:41 Promyelocytes # 0.0 K/mm3 04/11/19 13:41 Blast Cells # 0.0 K/mm3 04/11/19 13:41 WBC Morphology Not Reportable 04/11/19 13:41 Hypersegmented Neuts Not Reportable 04/11/19 13:41 Hyposegmented Neuts Not Reportable 04/11/19 13:41 Hypogranular Neuts Not Reportable 04/11/19 13:41 Smudge Cells Not Reportable 04/11/19 13:41 Toxic Granulation Not Reportable 04/11/19 13:41 Toxic Vacuolation Not Reportable 04/11/19 13:41 Dohle Bodies Not Reportable 04/11/19 13:41 Pelger-Huet Anomaly Not Reportable 04/11/19 13:41 Pablo Rods Not Reportable 04/11/19 13:41 Platelet Estimate Consistent w auto 04/11/19 13:41 Clumped Platelets Not Reportable 04/11/19 13:41 Plt Clumps, EDTA Not Reportable 04/11/19 13:41 Large Platelets Not Reportable 04/11/19 13:41 Giant Platelets Not Reportable 04/11/19 13:41 Platelet Satelliting Not Reportable 04/11/19 13:41 Plt Morphology Comment Not Reportable 04/11/19 13:41 RBC Morphology Not Reportable 04/11/19 13:41 Dimorphic RBCs Not Reportable 04/11/19 13:41 Polychromasia 1+ 04/11/19 13:41 Hypochromasia Not Reportable 04/11/19 13:41 Poikilocytosis Not Reportable 04/11/19 13:41 Anisocytosis 2+ 04/11/19 13:41 Microcytosis Not Reportable 04/11/19 13:41 Macrocytosis 1+ 04/11/19 13:41 Spherocytes Not Reportable 04/11/19 13:41 Pappenheimer Bodies Not Reportable 04/11/19 13:41 Sickle Cells Not Reportable 04/11/19 13:41 Target Cells Few 04/11/19 13:41 Tear Drop Cells Few 04/11/19 13:41 Ovalocytes Few 04/11/19 13:41 Helmet Cells Not Reportable 04/11/19 13:41 Villarreal-[place] Bodies Not Reportable 04/11/19 13:41 [place] Rings Not Reportable 04/11/19 13:41 Kusum Cells Not Reportable 04/11/19 13:41 Bite Cells Not Reportable 04/11/19 13:41 Crenated Cell Not Reportable 04/11/19 13:41 Elliptocytes Not Reportable 04/11/19 13:41 Acanthocytes (Spur) Not Reportable 04/11/19 13:41 Rouleaux Not Reportable 04/11/19 13:41 Hemoglobin C Crystals Not Reportable 04/11/19 13:41 Schistocytes Not Reportable 04/11/19 13:41 Malaria parasites Not Reportable 04/11/19 13:41 Rony Bodies Not Reportable 04/11/19 13:41 Hem Pathologist Commnt No 04/11/19 13:41 PT 14.3 Sec. (12.2-14.9) 04/11/19 15:49 INR 1.10 (0.87-1.13) 04/11/19 15:49 APTT 26.4 Sec. (24.2-36.6) 04/11/19 15:49 Sodium 129 mmol/L (137-145) L 04/12/19 13:21 Potassium 5.9 mmol/L (3.6-5.0) H D 04/12/19 13:21 Chloride 93.1 mmol/L (98-107) L 04/12/19 13:21 Carbon Dioxide 20 mmol/L (22-30) L 04/12/19 13:21 Anion Gap 22 mmol/L 04/12/19 13:21 BUN 56 mg/dL (7-17) H 04/12/19 13:21 Creatinine 10.5 mg/dL (0.7-1.2) H 04/12/19 13:21 Estimated GFR 4 ml/min 04/12/19 13:21 BUN/Creatinine Ratio 5 % 04/12/19 13:21 Glucose 100 mg/dL (65-100) 04/12/19 13:21 Hemoglobin A1c 5.6 % (4-6) 04/11/19 13:41 Calcium 7.8 mg/dL (8.4-10.2) L 04/12/19 13:21 Total Bilirubin 0.30 mg/dL (0.1-1.2) 04/12/19 13:21 AST 20 units/L (5-40) 04/12/19 13:21 ALT < 5 units/L (7-56) L 04/12/19 13:21 Alkaline Phosphatase 62 units/L (35-129) 04/12/19 13:21 Total Protein 6.4 g/dL (6.3-8.2) 04/12/19 13:21 Albumin 3.2 g/dL (3.9-5) L 04/12/19 13:21 Albumin/Globulin Ratio 1.0 % 04/12/19 13:21 Lipase 86 units/L (13-60) H 04/11/19 13:41 Blood Type A POSITIVE 04/11/19 15:49 Antibody Screen Negative 04/11/19 15:49 Crossmatch See Detail 04/11/19 15:49 Active Medications - Current Medications Current Medications: Generic Name Dose Route Start Last Admin Trade Name Freq PRN Reason Stop Dose Admin Acetaminophen 650 mg 04/11/19 19:45 Tylenol PO Q4H PRN Pain MILD(1-3)/Fever >100.5/RUTH Albuterol/Ipratropium 1 ampul 04/11/19 19:39 Duoneb *Not For Prn Use* IH Q4H PRN Shortness Of Breath Famotidine 10 mg 04/11/19 22:00 04/12/19 11:07 Pepcid PO 10 mg BID NIKITA Administration Ferrous Gluconate 324 mg 04/12/19 10:00 04/12/19 11:07 Fergon PO 324 mg QDAY NIKITA Administration Hydralazine HCl 50 mg 04/11/19 19:39 Apresoline PO BID PRN high BP Hydromorphone HCl 0.5 mg 04/11/19 19:45 Dilaudid IV Q3H PRN Pain , Severe (7-10) Sodium Chloride 500 mls @ 0 mls/hr 04/11/19 19:58 Nacl 0.9% 500 Ml IV 04/12/19 19:57 ONCE NIKITA As Directed Midodrine 5 mg 04/11/19 22:00 04/12/19 11:07 Proamatine PO 5 mg QDAY NIKITA Administration Ondansetron HCl 4 mg 04/11/19 19:45 Zofran IV Q8H PRN Nausea And Vomiting Oxycodone/Acetaminophen 1 tab 04/11/19 19:45 Percocet 5/325 PO Q6H PRN Pain, Moderate (4-6) Potassium Chloride 20 meq 04/11/19 22:00 04/12/19 11:07 Potassium Chloride PO 20 meq QDAY NIKITA Administration Sevelamer Carbonate 800 mg 04/12/19 07:30 04/12/19 08:44 Renvela PO 800 mg QAC NIKITA Administration Sodium Chloride 10 ml 04/11/19 22:00 04/12/19 11:07 Sodium Chloride Flush Syringe 10 Ml IV 10 ml BID NIKITA Administration Sodium Chloride 10 ml 04/11/19 19:45 Sodium Chloride Flush Syringe 10 Ml IV PRN PRN LINE FLUSH
[2019-04-12] MEDS ORDERED: CALCIUM GLUCONATE 1,000 MG in SODIUM CHLORIDE 0.9% 100 ML IV STA (14:58)
[2019-04-12] MEDS ORDERED: DEXTROSE 50% IN WATER (25GM) 50 ML SYRINGE IV STA (15:01)
[2019-04-12] MEDS ORDERED: SODIUM POLYSTYRENE 15 GM/60 ML ORAL LIQD PO STA (15:02)
[2019-04-12] MEDS ORDERED: INSULIN REGULAR, HUMAN 100 UNITS/1 ML IV STA (15:02)
[2019-04-12] MEDS ORDERED: ALBUTEROL 2.5 MG/3 ML NEBU IH ONE (16:00)
[2019-04-12 17:21] VITALS: BP 140/71
[2019-04-12 18:14] LABS: Calcium 8.4 mg/dL (8.4-10.2)
--- NOTE | 2019-04-12 18:31 | Discharge Summary ---
Providers - Providers Date of Admission: 04/11/19 19:45 Date of discharge: 04/12/19 Attending physician: GEOVANY JETT 04/11/19 19:45 Consult to Physician [CONS] Routine Comment: called to Lucero in office Consulting Provider: JAYDA RODRIGUEZ Physician Instructions: Reason For Exam: 04/11/19 19:57 Consult to Physician [CONS] Routine Comment: Consulting Provider: JIMY MATHEW Physician Instructions: consult called to Jada Reason For Exam: Acute anemia Primary care physician: RETA PARKER Hospitalization Condition: Fair Hospital course: 83-year-old -[place] female with history of HIV on antiretrovirals, hypertension and end-stage renal disease on peritoneal dialysis was sent by her rehabilitation program coordinator for dropping hemoglobin and hematocrit from 11 to 7 g. Hemoglobin and hematocrit were 11 on 02/20/2019 when the patient was discharged from this facility. No shortness of breath. Patient was supposed to have a colonoscopy in April. No black stools or hematemesis. No vaginal bleeding. Increasing fatigue and shortness of breath present. Also lightheadedness present. Especially on standing. No chest pain. No orthopnea. Exertion is an exacerbating factor and restless relieving factor. Last admission of January 2019 was reviewed. Patient was admitted for end-stage renal disease HIV and metabolic acidosis and severe malnutrition. Hemoglobin was 7.0 so she was transfused 2 units PRBC beginning in hemoglobin to 10.3. GI recommended patient may be discharged and followed as an outpatient so she was discharged on 04/12/2019 Disposition: DC-01 TO HOME OR SELFCARE - Discharge Diagnoses (1) ESRD on peritoneal dialysis Status: Acute (2) HIV (human immunodeficiency virus infection) Status: Acute (3) Anemia Status: Acute Qualifiers: Iron deficiency anemia type: chronic blood loss Core Measure Documentation - Palliative Care Palliative Care/ Comfort Measures: Not Applicable - Core Measures Any of the following diagnoses?: none Exam - Constitutional Vitals: Temp Pulse Resp BP Pulse Ox 98.3 F 76 18 140/71 100 04/12/19 16:57 04/12/19 16:57 04/12/19 16:57 04/12/19 16:57 04/12/19 16:57 Plan Activity: advance as tolerated Diet: low fat, low cholesterol, low salt, low carbohydrate Plan of Treatment: 1.Follow up with PCP in 1 week. 2.Follow up with Dr. Mauricio in 1 week 3.Continue peritoneal dialysis as scheduled 4.Follow up with Nephrology in 1 week. Follow up with: RETA PARKER MD [Primary Care Provider] - 3-5 Days Forms: Accompanied Note
== END 2019-04-12 19:21 | disposition home or self-care (01) ==
LOC: ED 12:46 → 2B-ACE 19:45 → 3A 20:31
PROVIDERS: ADMIT Internal Medicine; ATTEND Internal Medicine
DX: D64.9 Anemia, unspecified (principal); K92.2 Gastrointestinal hemorrhage, unspecified; I13.2 Hypertensive heart and chronic kidney disease with heart failure and with stage 5 chronic kidney disease, or end stage renal disease; I50.9 Heart failure, unspecified; N18.6 End stage renal disease; I25.10 Atherosclerotic heart disease of native coronary artery without angina pectoris; K21.9 Gastro-esophageal reflux disease without esophagitis; J44.9 Chronic obstructive pulmonary disease, unspecified; R42 Dizziness and giddiness; Z21 Asymptomatic human immunodeficiency virus [HIV] infection status; Z87.891 Personal history of nicotine dependence
CPT/HCPCS: 36415; 36430; 74177; 80048; 80053; 82270; 83036; 83690; 85007; 85025; 85027; 85610; 85730; 86850; 86900; 86901; 86920; 87045; 87116; 93005; 93010; 96374; 96375; 99284; G0378; J0610; J2405; J7040; P9016; Q9967; J1815

== ENCOUNTER 2019-05-14 06:59 | Day surgery (SDC) | payer MEDICARE ==
[2019-05-14] MEDS ORDERED: SODIUM CHLORIDE 0.9% 1000 ML 1,000 ML IV SCH (07:15)
[2019-05-14] MEDS ORDERED: WATER FOR IRRIG STERILE 250 ML BOTTLE IR ONE (07:25)
[2019-05-14] MEDS ORDERED: PROPOFOL 200 MG/20 ML VIAL IV ONE (07:33)
[2019-05-14] MEDS ORDERED: LIDOCAINE (2%) 20 MG/1 ML VIAL 20 ML MDV INFILTRATI ONE (07:33)
[2019-05-14] MEDS ORDERED: fentaNYL 100 MCG/2 ML INJ ONE (07:33)
--- NOTE | 2019-05-14 07:59 | Anesthesia Day of Surgery ---
Anesthesia Day of Surgery - Day of Surgery Patient Examined: Yes Patient H&P Reviewed: Yes Patient is NPO: Yes Beta Blockers: Yes (Taken yesterday) Cardiac Clearance: No (Saw surgical sales representative last week) Pulmonary Clearance: No Kenrick's Test: N/A
[2019-05-14] MEDS ORDERED: LIDOCAINE MPF (2%) 20 MG/1 ML VIAL 5 ML ONE (08:00)
--- NOTE | 2019-05-14 08:04 | Anesthesia Consultation ---
Anesthesia Consult and Med Hx - Airway Anesthetic Teeth Evaluation: Edentulous ROM Head & Neck: Adequate Mental/Hyoid Distance: Adequate Mallampati Class: Class I Intubation Access Assessment: Good - Pulmonary Exam CTA: Yes - Cardiac Exam Cardiac Exam: RRR - Pre-Operative Health Status ASA Pre-Surgery Classification: ASA4 Proposed Anesthetic Plan: General, MAC - Pulmonary Hx Smoking: Yes (Quit 4-5 yr ago) Hx Asthma: No SOB: No COPD: Yes Home Oxygen Therapy: No Hx Pneumonia: Yes (~2yr ago, hospitalizeed x2days) Hx Sleep Apnea: No - Cardiovascular System Hx Hypertension: Yes Hx Coronary Artery Disease: Yes ( EF 36%, FIXED DEFECT IN APEX) Hx Heart Attack/AMI: No Hx Angina: No Hx Percutaneous Transluminal Coronary Angioplasty (PTCA): No Hx Pacemaker: No Hx Internal Defibrillator: No Hx Valvular Heart Disease: Yes (MVP, CHF) Hx Peripheral Vascular Disease: Yes (Lt Leg stents) - Central Nervous System Hx Seizures: Yes (10 years ago) CVA: Yes (~2yr ago, 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
--- NOTE | 2019-05-14 09:10 | Short Stay Summary ---
Short Stay Documentation Date of service: 05/14/19 Narrative H&P: The patient presents for enteroscopy and ablation of known AVMs due to anemia due to chronic blood loss - History Past Medical History: anemia, HIV/AIDS, hypertension, renal failure Past Surgical History: cholecystectomy, , bowel surgery Social history: no significant social history, lives with family - Allergies and Medications Current Medications: Allergies Sulfa (Sulfonamide Antibiotics) Allergy (Verified 11/26/17 13:10) Itching sulfamethoxazole [From Bactrim] Allergy (Verified 11/26/17 13:10) Itching trimethoprim [From Bactrim] Allergy (Verified 11/26/17 13:10) Itching Home Medications Medication Instructions Recorded Confirmed Last Taken Type calcitrioL [Rocaltrol] 0.5 mcg PO QDAY #30 capsule 05/26/16 05/14/19 05/13/19 Rx Abacavir [Ziagen TAB] 300 mg PO BID 06/25/16 05/14/19 05/13/19 History Ferrous Gluconate [Fergon 325 MG 325 mg PO QDAY #30 tablet 06/26/16 05/14/19 05/13/19 Rx tab] Sevelamer Carbonate [Renvela] 800 mg PO QAC 06/18/17 05/14/19 05/13/19 History Pravastatin [Pravachol] 80 mg PO QHS #30 tablet 11/29/17 05/14/19 05/13/19 Rx Cinacalcet [Sensipar] 30 mg PO QDAY 04/11/19 05/14/19 05/13/19 History Dolutegravir [Tivicay] 1 tab PO DAILY 04/11/19 05/14/19 05/13/19 History Famotidine [Pepcid] 1 tab PO DAILY 04/11/19 05/14/19 05/13/19 History Furosemide [Lasix TAB] 80 mg PO DAILY 04/11/19 05/14/19 05/13/19 History hydrALAZINE [Apresoline TAB] 25 mg PO DAILY PRN 04/11/19 05/14/19 05/13/19 History lamiVUDine [Lamivudine] 1 tab PO QHS 04/11/19 05/14/19 05/13/19 History Metoprolol 50 mg PO DAILY 05/14/19 05/14/19 05/13/19 History Active Medications Sodium Chloride (Nacl 0.9% 1000 Ml) 1,000 mls @ 50 mls/hr IV DIRECT NIKITA Last Admin: 05/14/19 08:01 Dose: 50 mls/hr Documented by: - Physical exam General appearance: no acute distress, well-nourished Integumentary: no rash, no growths, no abnormal pigmentation HEENT: Atraumatic, PERRLA, EOMI, Mucous membr. moist/pink Lungs: Clear to auscultation, Normal air movement Breasts: deferred Heart: Regular rate, Normal S1, Normal S2, No murmurs Gastrointestinal: normoactive bowel sounds, no tenderness, no distended, no masses, no guarding, no organomegaly Female Genitourinary: deferred Rectal Exam: deferred Extremities: no ischemia, pulses intact, pulses symmetrical, No edema, normal temperature, normal color, Full ROM Neurological: Normal gait, Normal speech, Strength at 5/5 X4 ext, Normal tone, Sensation intact, Cranial nerves 3-12 NL - Brief post op/procedure progress note Date of procedure: 05/14/19 Findings: see dictation Estimated blood loss: none Pathology: list (antral biopsies for h.pylori) Specimen disposition: to lab Condition: stable - Disposition Condition at discharge: Good Disposition: DC- TO HOME OR SELFCARE - Discharge Diagnoses (1) Anemia due to chronic blood loss Status: Acute Short Stay Discharge Plan Activity: other (no driving for 24 hours) Weight Bearing Status: Full Weight Bearing Diet: renal Follow up with: RETA PARKER MD [Primary Care Provider] - 7 Days
--- NOTE | 2019-05-14 09:19 | Operative Report ---
Operative Report Operative Report: Date of procedure: 05/14/2019 Procedure: Small bowel enteroscopy with ablation of AVMs in the stomach by APC and biopsies of the antrum for H. pylori Preprocedure diagnosis: Anemia secondary to chronic blood loss. No AVMs by prior studies. 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 Normal duodenum and possible jejunum Endoscopist: Dr. Mauricio Anesthesia: Monitored anesthesia care per anesthesia department Medications: Propofol per anesthesia Estimated blood loss: 0 After careful discussion of the nature and purpose of the procedure as well as details the technique risks benefits and alternatives consent was obtained. The patient was placed in the left lateral decubitus position and medicated per anesthesia. The tip of the Olympus video scope was passed per orum under direct vision into the esophagus and advanced into the stomach and into the proximal jejunum approximately 20 cm.. The jejunum, descending duodenum the duodenal bulb and pylorus were symmetrical and normal. The scope was withdrawn into the stomach and the stomach then gently insufflated with air. The antrum revealed moderately severe diffuse gastritis without erosions or ulcers. Biopsies were taken for H. pylori in the antrum. The stomach was further insufflated and the scope was then retroflexed and partially withdrawn. 2 AVMs were seen in the mid body of the stomach. These 2 lesions were approximately 2- 4 mm in size and were ablated with the argon plasma seed pelleter. No bleeding was encountered. The cardia, fundus, and body of the stomach were otherwise within normal limits and easily distensible.The scope was then withdrawn in the forward position. The esophagogastric junction was at 36 cm. The esophageal body was normal throughout. The procedure was was well tolerated and the patient was observed in recovery. 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 Moderate diffuse antral gastritis. Multiple duodenum and proximal jejunum Plan: Continue iron therapy. Await results of antral biopsies for H. pylori. The patient will call the office in 1 week for discussion. Electronically signed: Deny Mauricio MD
[2019-05-14 09:31] VITALS: BP 133/65
--- NOTE | 2019-05-14 10:14 | Post Anesthesia Evaluation ---
- Post Anesthesia Evaluation Patient Participated: Yes Airway Patent: Yes Stable Respiratory Function: Yes Nausea/Vomiting: No Temp > 96.8F: Yes Pain Manageable: Yes Adequeate Hydration: Yes Anesthesia Complications: No Block Receding Appropriately: Not Applicable Patient on Ventilator: No
== END 2019-05-14 07:00 | disposition home or self-care (01) ==
LOC: GIO 06:59
PROVIDERS: ATTEND Internal Medicine Gastroenterology
DX: D50.0 Iron deficiency anemia secondary to blood loss (chronic) (principal); K29.50 Unspecified chronic gastritis without bleeding; I13.2 Hypertensive heart and chronic kidney disease with heart failure and with stage 5 chronic kidney disease, or end stage renal disease; N18.6 End stage renal disease; I50.9 Heart failure, unspecified; B20 Human immunodeficiency virus [HIV] disease; E78.5 Hyperlipidemia, unspecified; I48.91 Unspecified atrial fibrillation; G40.909 Epilepsy, unspecified, not intractable, without status epilepticus; I25.10 Atherosclerotic heart disease of native coronary artery without angina pectoris; K21.9 Gastro-esophageal reflux disease without esophagitis; G62.9 Polyneuropathy, unspecified; J43.9 Emphysema, unspecified; F32.9 Major depressive disorder, single episode, unspecified; B96.81 Helicobacter pylori [H. pylori] as the cause of diseases classified elsewhere; Z88.2 Allergy status to sulfonamides; Z79.899 Other long term (current) drug therapy; Z87.891 Personal history of nicotine dependence; Z87.19 Personal history of other diseases of the digestive system; Z98.41 Cataract extraction status, right eye; Z98.42 Cataract extraction status, left eye; Z90.49 Acquired absence of other specified parts of digestive tract; Z99.2 Dependence on renal dialysis; Z83.3 Family history of diabetes mellitus; Z88.8 Allergy status to other drugs, medicaments and biological substances; Z82.49 Family history of ischemic heart disease and other diseases of the circulatory system; Z86.73 Personal history of transient ischemic attack (TIA), and cerebral infarction without residual deficits
CPT/HCPCS: 44361; 44369; 88305; 88342; J2704; J3010; J7030

== ENCOUNTER 2020-06-09 10:57 | Observation (INO) | payer MEDICARE ==
--- NOTE | 2020-06-09 11:12 | Emergency Department Report ---
Blank Doc - Documentation Documentation: 84-year-old female that presents with heart palpitation, hypotension and tachy cardia. Patient is a dialysis patient. Patient stated has history of gastric ulcers. Patient was recently discharged for sepsis to [facility] in [facility] Hypotensive and tachy in triage. 1- This initial assessment/diagnostic orders/clinical plan/ treatment(s) is/are subject to change based on pt's health status, clinical progression and re- assessment by fellow clinical providers in the ED. Further treatment and workup at subsequent clinical provers discretion. Patient/guardians urged not to elope from ED as their condition may be serious if not clinically assessed and managed . 2-cardiac work-up. sepsis protocol initiated 3-EKG 4-chest x-ray
[2020-06-09] MEDS ORDERED: SODIUM CHLORIDE 0.9% 1000 ML 1,000 ML ONE (11:42)
[2020-06-09 11:46] LABS: Basophils # (Auto) 0.1 K/mm3 (0.0-0.1); Basophils % (Auto) 0.7 % (0.0-1.8); Eosinophils # (Auto) 0.4 K/mm3 (0.0-0.4); Eosinophils % (Auto) 4.1 % (0.0-4.3); Hematocrit 31.6 % (30.3-42.9); Hemoglobin 10.3 gm/dl (10.1-14.3); Lymphocytes # (Auto) 2.8 K/mm3 (1.2-5.4); Lymphocytes % (Auto) 27.1 % (13.4-35.0); Mean Corpuscular HGB Conc 33 % (30-34); Mean Corpuscular Volume 100 fl (79-97); Monocytes # (Auto) 1.1 K/mm3 (0.0-0.8); Monocytes % (Auto) 10.8 % (0.0-7.3); Platelet Count 493 K/mm3 (140-440); Red Blood Count 3.16 M/mm3 (3.65-5.03)
[2020-06-09 11:50] LABS: Red Cell Distribution Width 24.1 % (13.2-15.2)
--- NOTE | 2020-06-09 11:55 | XRay Report ---
CHEST 2 VIEWS INDICATION / CLINICAL INFORMATION: Chest Pain. COMPARISON: 06/12/2019 FINDINGS: SUPPORT DEVICES: Right dual-lumen dialysis catheter has been removed. HEART / MEDIASTINUM: Stable. LUNGS / PLEURA: No significant pulmonary or pleural abnormality. No pneumothorax. ADDITIONAL FINDINGS: Prominent bilateral nipple shadows are noted. IMPRESSION: 1. No acute findings. 2. Interval removal of dual lumen dialysis catheter since 06/12/2019. Signer Name: David Rodriguez MD Signed: 06/09/2020 11:50 AM Workstation Name: [id number]
[2020-06-09 11:56] LABS: INR 1.1 (0.87-1.13)
[2020-06-09 11:57] LABS: Partial Thromboplastin Time 30.8 Sec. (24.2-36.6)
[2020-06-09 12:13] LABS: Albumin 3.2 g/dL (3.9-5); Blood Urea Nitrogen 33 mg/dL (7-17); Calcium 9.9 mg/dL (8.4-10.2); Hemolysis Index 1
[2020-06-09] MEDS ORDERED: LACTATED RINGERS 500 ML IV ONE (12:16)
--- NOTE | 2020-06-09 12:16 | Emergency Department Report ---
ED General Adult HPI - General Chief complaint: Arrhythmia/Palpitations Stated complaint: LOW BLOOD COUNT/DEHYDRATED PUI?: No Time Seen by Provider: 06/09/20 11:03 Source: patient, RN notes reviewed, old records reviewed Mode of arrival: Ambulatory Limitations: No Limitations - History of Present Illness Initial comments: The patient was evaluated in the emergency department for symptoms described in the history of present illness. He/she was evaluated in the context of the global COVID-19 pandemic, which necessitated consideration that the patient might be at risk for infection with the virus that causes COVID-19. [facility] tutional protocols and algorithms that pertain to the evaluation of patients at risk for COVID-19 are in a state of rapid change based on information released by regulatory bodies including the CDC and federal and state organizations. These policies and algorithms were followed during the patient's care in the emergency department. Please note that these policies, procedures and recommendations changed on a rapid basis. Past medical history: End-stage renal disease on home peritoneal dialysis, COPD, HIV, on antiviral therapy, anemia, history of GI bleed Nephrology: Dr. Sadler The patient is a pleasant 84-year-old female. She presents to the ER today with complaint of painless weakness, palpitations and low blood pressure. This started this morning. The patient denies headache, neck pain, chest pain, abdominal pain. She does not make urine. She has chronic shortness of breath. She believes that she has chronic bleeding in her intestines, and reports consistency with home peritoneal dialysis. She was admitted to [facility] last month for vascular insufficiency. She has no lower extremity pain or swelling at this time. Patient initially was found to be tachycardic and hypotensive. This improved with conservative therapy. The patient reports that she feels improved at this time. Sensation of palpitations and weakness is painless, does not radiate anywhere, did not have exacerbating or relieving factors. Denies loss of taste and smell. -: Gradual, minutes(s) Severity scale (0 -10): 0 Consistency: other Improves with: other Worsens with: other - Related Data Home Medications Medication Instructions Recorded Confirmed Last Taken Abacavir [Ziagen TAB] 300 mg PO BID 06/25/16 06/09/20 05/13/19 Dolutegravir [Tivicay] 1 tab PO DAILY 04/11/19 06/09/2005/13/20 Famotidine [Pepcid] 2 tab PO DAILY 04/11/19 06/09/20 05/13/19 Metoprolol 50 mg PO DAILY 06/07/19 06/09/20 Unknown Aspirin [Adult Aspirin] 81 mg PO DAILY 06/09/20 06/09/20 Unknown Pantoprazole [Protonix] 40 mg PO QDAY 06/09/20 06/09/20 Unknown Potassium Chloride [K-Dur] 20 meq PO QDAY 06/09/20 06/09/20 Unknown lamiVUDine [Lamivudine] 150 mg PO DAILY 06/09/20 06/09/20 Unknown Previous Rx's Medication Instructions Recorded Last Taken Type calcitrioL [Rocaltrol] 0.5 mcg PO QDAY #30 capsule 05/26/16 05/13/19 Rx Ferrous Gluconate [Fergon 325 MG 325 mg PO QDAY #30 tablet 06/26/16 05/13/19 Rx tab] Pravastatin [Pravachol] 80 mg PO QHS #30 tablet 11/29/17 05/13/19 Rx Allergies Allergy/AdvReac Type Severity Reaction Status Date / Time Sulfa (Sulfonamide Allergy Itching Verified 06/09/20 13:25 Antibiotics) sulfamethoxazole Allergy Itching Verified 06/09/20 13:25 [From Bactrim] trimethoprim [From Bactrim] Allergy Itching Verified 06/09/20 13:25 ED Review of Systems ROS: Stated complaint: LOW BLOOD COUNT/DEHYDRATED Other details as noted in HPI Constitutional: malaise, weakness. denies: fever Eyes: denies: eye discharge Respiratory: shortness of breath (Chronic) Cardiovascular: palpitations. denies: chest pain Gastrointestinal: denies: abdominal pain, nausea, vomiting, diarrhea Genitourinary: as per HPI (Patient does not produce urine) Skin: other (Chronic skin discoloration) Neurological: weakness Hematological/Lymphatic: denies: easy bleeding ED Past Medical Hx - Past Medical History Previous Medical History?: Yes Hx Hypertension: Yes Hx CVA: Yes Hx Heart Attack/AMI: No Hx Congestive Heart Failure: Yes Hx Diabetes: No Hx GERD: Yes Hx Renal Disease: Yes (esrd, peritoneal dialysis) Hx Seizures: Yes (10 years ago) Hx Asthma: No Hx COPD: Yes Hx HIV: Yes Additional medical history: Diverticulitis. aortic aneurysm - Surgical History Past Surgical History?: Yes Hx Pacemaker: No Hx Internal Defibrillator: No Hx Cholecystectomy: Yes Additional Surgical History: Colon resection 2012 (uncertain indication). right hip (ball and joint). stents 2 in right leg, 2 in left leg - Social History Smoking Status: Never Smoker Substance Use Type: None - Medications Home Medications: Home Medications Medication Instructions Recorded Confirmed Last Taken Type calcitrioL [Rocaltrol] 0.5 mcg PO QDAY #30 capsule 05/26/16 06/09/20 05/13/19 Rx Abacavir [Ziagen TAB] 300 mg PO BID 06/25/16 06/09/20 05/13/19 History Ferrous Gluconate [Fergon 325 MG 325 mg PO QDAY #30 tablet 06/26/16 06/09/20 05/13/19 Rx tab] Pravastatin [Pravachol] 80 mg PO QHS #30 tablet 11/29/17 06/09/20 05/13/19 Rx Dolutegravir [Tivicay] 1 tab PO DAILY 04/11/19 06/09/20 05/13/19 History Famotidine [Pepcid] 2 tab PO DAILY 04/11/19 06/09/20 05/13/19 History Metoprolol 50 mg PO DAILY 06/07/19 06/09/20 Unknown History Aspirin [Adult Aspirin] 81 mg PO DAILY 06/09/20 06/09/20 Unknown History Pantoprazole [Protonix] 40 mg PO QDAY 06/09/20 06/09/20 Unknown History Potassium Chloride [K-Dur] 20 meq PO QDAY 06/09/20 06/09/20 Unknown History lamiVUDine [Lamivudine] 150 mg PO DAILY 06/09/20 06/09/20 Unknown History ED Physical Exam - General Limitations: No Limitations General appearance: alert, in no apparent distress - Head Head exam: Present: atraumatic, normocephalic - Eye Eye exam: Present: normal appearance, EOMI. Absent: nystagmus - ENT ENT exam: Present: normal orophraynx, mucous membranes dry, normal external ear exam - Neck Neck exam: Present: normal inspection, full ROM. Absent: tenderness, meningismus - Respiratory Respiratory exam: Present: decreased breath sounds. Absent: respiratory distress, wheezes, rales, rhonchi, stridor - Cardiovascular Cardiovascular Exam: Present: tachycardia, normal heart sounds. Absent: bradycardia, irregular rhythm, systolic murmur, diastolic murmur, rubs, gallop - GI/Abdominal GI/Abdominal exam: Present: soft, other (There is a peritoneal dialysis catheter noted, without redness, pus, streaking, tenderness or discharge). Absent: distended, tenderness, guarding, rebound, rigid, pulsatile mass - Rectal Rectal exam: Present: normal inspection, heme (+) stool, other (Chaperoned by nurse Judioxx). Absent: black stool, bloody stool - Extremities Exam Extremities exam: Present: full ROM, other (1+ radial pulses bilaterally, femoral pulses bilaterally. Chronic skin discoloration noted in the left great toe.). Absent: pedal edema, calf tenderness - Back Exam Back exam: Present: normal inspection, full ROM. Absent: tenderness, CVA tenderness (R), CVA tenderness (L), paraspinal tenderness, vertebral tenderness - Neurological Exam Neurological exam: Present: alert, other (No facial droop. Tongue midline. Extraocular movements intact bilaterally. Facial sensation intact to light touch in V1, V2, V3 distribution bilaterally. 5 and a 5 strength in 4 extremities. Sensation intact to light touch in 4 extremities.). Absent: motor sensory deficit - Psychiatric Psychiatric exam: Present: flat affect - Skin Skin exam: Present: warm, dry, intact ED Course Vital Signs 06/09/20 06/09/20 06/09/20 10:59 11:07 11:42 Temperature 97.6 F Pulse Rate 149 H 89 139 H Respiratory 20 16 18 Rate Blood Pressure 81/49 Blood Pressure 149/75 123/70 [Left] O2 Sat by Pulse 100 100 99 Oximetry 06/09/20 06/09/20 11:47 12:19 Temperature Pulse Rate 98 H Respiratory 20 18 Rate Blood Pressure Blood Pressure 120/75 [Left] O2 Sat by Pulse 99 99 Oximetry - Reevaluation(s) Reevaluation #1: 06/09/20 13:40 Differential diagnosis, including not limited to: Arrhythmia, anemia, electrolyte derangement, thyroid derangement, pneumonia, bacteremia, viremia, polypharmacy Assessment and plan: 84-year-old female, initially presenting with tachycardia, hypotension and generalized weakness. Neurologic examination nonfocal, patient clinically sober with a GCS of 15, with no abdominal pain or tenderness, tachycardia now resolved, patient in normal sinus rhythm, with brown stool, that is strongly guaiac positive. Initial EKG shows what I believe to be a narrow complex tachycardia, uncertain if atrial tachycardia versus junctional tachycardia versus A. fib/flutter. However, repeat EKG appears to show resolution of tachycardia, with a normal sinus rhythm and motion artifact. Patient also found to have increasing lactic acidosis, with a lactic acid going up to greater than 4. Patient hemodynamically stable at this time and is mentating appropriately. She does not produce urine. Start IV fluids, and empirically dose ceftriaxone. Have discussed history, physical, pertinent laboratory studies with multiple specialist consultants, including the following: Gastroenterology: Dr Shaw Agrees with plan of care, they will follow in consultation. Nephrology: Dr. Torres, agrees with plan of care. Agrees with plans to bolus patient 30 cc/kg IV fluid, given escalating lactic acid level. In addition, nursing team not able to do her peritoneal dialysis fluid from PD catheter, have discussed this with Dr. Torres, and he indicates his group can help follow this up. Cardiology: Libby Chamberlain, working with [facility] physician, Dr. Sandoval, to admit patient to the medical service. Medical decision makin-year-old female, with undifferentiated narrow complex tachycardia, resolved hypotension, resolved narrow complex tachycardia, escalating lactic acid level, with complaint of generalized weakness, and multiple abnormalities, requires further medical work-up, and stabilization. Protonix ordered. Elevated troponin likely type II troponin leak. 06/09/20 13:49 ED Medical Decision Making - Lab Data Result diagrams: 06/09/20 11:19 06/09/20 11:19 Vital Signs 06/09/20 06/09/20 06/09/20 10:59 11:07 11:42 Temperature 97.6 F Pulse Rate 149 H 89 139 H Respiratory 20 16 18 Rate Blood Pressure 81/49 Blood Pressure 149/75 123/70 [Left] O2 Sat by Pulse 100 100 99 Oximetry 06/09/20 06/09/20 11:47 12:19 Temperature Pulse Rate 98 H Respiratory 20 18 Rate Blood Pressure Blood Pressure 120/75 [Left] O2 Sat by Pulse 99 99 Oximetry Lab Results 06/09/20 06/09/20 06/09/20 Range/Units 11:19 11:19 11:19 WBC 10.3 (4.5-11.0) K/mm3 RBC 3.16 L (3.65-5.03) M/mm3 Hgb 10.3 (10.1-14.3) gm/dl Hct 31.6 (30.3-42.9) % MCV 100 H (79-97) fl MCH 33 H (28-32) pg MCHC 33 (30-34) % RDW 24.1 H (13.2-15.2) % Plt Count 493 H (140-440) K/mm3 Lymph % (Auto) 27.1 (13.4-35.0) % Norton % (Auto) 10.8 H (0.0-7.3) % Eos % (Auto) 4.1 (0.0-4.3) % Baso % (Auto) 0.7 (0.0-1.8) % Lymph # (Auto) 2.8 (1.2-5.4) K/mm3 Norton # (Auto) 1.1 H (0.0-0.8) K/mm3 Eos # (Auto) 0.4 (0.0-0.4) K/mm3 Baso # (Auto) 0.1 (0.0-0.1) K/mm3 Seg Neutrophils % 57.3 (40.0-70.0) % Seg Neutrophils # 5.9 (1.8-7.7) K/mm3 PT 14.0 (12.2-14.9) Sec. INR 1.10 (0.87-1.13) APTT 30.8 (24.2-36.6) Sec. Sodium 134 L (137-145) mmol/L Potassium 4.0 (3.6-5.0) mmol/L Chloride 92.1 L (98-107) mmol/L Carbon Dioxide 23 (22-30) mmol/L Anion Gap 23 mmol/L BUN 33 H (7-17) mg/dL Creatinine 10.5 H (0.6-1.2) mg/dL Estimated GFR 4 ml/min BUN/Creatinine Ratio 3 % Glucose 110 H (65-100) mg/dL Lactic Acid (0.7-2.0) mmol/L Calcium 9.9 (8.4-10.2) mg/dL Magnesium (1.7-2.3) mg/dL Total Bilirubin 0.20 (0.1-1.2) mg/dL AST 9 (5-40) units/L ALT < 5 L (7-56) units/L Alkaline Phosphatase 39 (35-129) units/L Total Creatine Kinase (30-135) units/L Troponin T 0.085 H (0.00-0.029) ng/mL Total Protein 6.8 (6.3-8.2) g/dL Albumin 3.2 L (3.9-5) g/dL Albumin/Globulin Ratio 0.9 % Triglycerides 111 (2-149) mg/dL Cholesterol 122 (50-199) mg/dL LDL Cholesterol Direct 62 (50-130) mg/dL HDL Cholesterol 55 (40-59) mg/dL Cholesterol/HDL Ratio 2.21 % TSH (0.270-4.200) mlU/mL Blood Type Antibody Screen 06/09/20 06/09/20 06/09/20 Range/Units 11:19 11:19 11:25 WBC (4.5-11.0) K/mm3 RBC (3.65-5.03) M/mm3 Hgb (10.1-14.3) gm/dl Hct (30.3-42.9) % MCV (79-97) fl MCH (28-32) pg MCHC (30-34) % RDW (13.2-15.2) % Plt Count (140-440) K/mm3 Lymph % (Auto) (13.4-35.0) % Norton % (Auto) (0.0-7.3) % Eos % (Auto) (0.0-4.3) % Baso % (Auto) (0.0-1.8) % Lymph # (Auto) (1.2-5.4) K/mm3 Norton # (Auto) (0.0-0.8) K/mm3 Eos # (Auto) (0.0-0.4) K/mm3 Baso # (Auto) (0.0-0.1) K/mm3 Seg Neutrophils % (40.0-70.0) % Seg Neutrophils # (1.8-7.7) K/mm3 PT (12.2-14.9) Sec. INR (0.87-1.13) APTT (24.2-36.6) Sec. Sodium (137-145) mmol/L Potassium (3.6-5.0) mmol/L Chloride (98-107) mmol/L Carbon Dioxide (22-30) mmol/L Anion Gap mmol/L BUN (7-17) mg/dL Creatinine (0.6-1.2) mg/dL Estimated GFR ml/min BUN/Creatinine Ratio % Glucose (65-100) mg/dL Lactic Acid 2.80 H* (0.7-2.0) mmol/L Calcium (8.4-10.2) mg/dL Magnesium 2.40 H (1.7-2.3) mg/dL Total Bilirubin (0.1-1.2) mg/dL AST (5-40) units/L ALT (7-56) units/L Alkaline Phosphatase (35-129) units/L Total Creatine Kinase (30-135) units/L Troponin T (0.00-0.029) ng/mL Total Protein (6.3-8.2) g/dL Albumin (3.9-5) g/dL Albumin/Globulin Ratio % Triglycerides (2-149) mg/dL Cholesterol (50-199) mg/dL LDL Cholesterol Direct (50-130) mg/dL HDL Cholesterol (40-59) mg/dL Cholesterol/HDL Ratio % TSH (0.270-4.200) mlU/mL Blood Type A POSITIVE Antibody Screen Negative 06/09/20 06/09/20 06/09/20 Range/Units 12:34 12:34 12:34 WBC (4.5-11.0) K/mm3 RBC (3.65-5.03) M/mm3 Hgb (10.1-14.3) gm/dl Hct (30.3-42.9) % MCV (79-97) fl MCH (28-32) pg MCHC (30-34) % RDW (13.2-15.2) % Plt Count (140-440) K/mm3 Lymph % (Auto) (13.4-35.0) % Norton % (Auto) (0.0-7.3) % Eos % (Auto) (0.0-4.3) % Baso % (Auto) (0.0-1.8) % Lymph # (Auto) (1.2-5.4) K/mm3 Norton # (Auto) (0.0-0.8) K/mm3 Eos # (Auto) (0.0-0.4) K/mm3 Baso # (Auto) (0.0-0.1) K/mm3 Seg Neutrophils % (40.0-70.0) % Seg Neutrophils # (1.8-7.7) K/mm3 PT (12.2-14.9) Sec. INR (0.87-1.13) APTT (24.2-36.6) Sec. Sodium (137-145) mmol/L Potassium (3.6-5.0) mmol/L Chloride (98-107) mmol/L Carbon Dioxide (22-30) mmol/L Anion Gap mmol/L BUN (7-17) mg/dL Creatinine (0.6-1.2) mg/dL Estimated GFR ml/min BUN/Creatinine Ratio % Glucose (65-100) mg/dL Lactic Acid 4.40 H* (0.7-2.0) mmol/L Calcium (8.4-10.2) mg/dL Magnesium (1.7-2.3) mg/dL Total Bilirubin (0.1-1.2) mg/dL AST (5-40) units/L ALT (7-56) units/L Alkaline Phosphatase (35-129) units/L Total Creatine Kinase 20 L (30-135) units/L Troponin T (0.00-0.029) ng/mL Total Protein (6.3-8.2) g/dL Albumin (3.9-5) g/dL Albumin/Globulin Ratio % Triglycerides (2-149) mg/dL Cholesterol (50-199) mg/dL LDL Cholesterol Direct (50-130) mg/dL HDL Cholesterol (40-59) mg/dL Cholesterol/HDL Ratio % TSH 3.800 (0.270-4.200) mlU/mL Blood Type Antibody Screen 06/09/20 Range/Units 12:34 WBC (4.5-11.0) K/mm3 RBC (3.65-5.03) M/mm3 Hgb (10.1-14.3) gm/dl Hct (30.3-42.9) % MCV (79-97) fl MCH (28-32) pg MCHC (30-34) % RDW (13.2-15.2) % Plt Count (140-440) K/mm3 Lymph % (Auto) (13.4-35.0) % Norton % (Auto) (0.0-7.3) % Eos % (Auto) (0.0-4.3) % Baso % (Auto) (0.0-1.8) % Lymph # (Auto) (1.2-5.4) K/mm3 Norton # (Auto) (0.0-0.8) K/mm3 Eos # (Auto) (0.0-0.4) K/mm3 Baso # (Auto) (0.0-0.1) K/mm3 Seg Neutrophils % (40.0-70.0) % Seg Neutrophils # (1.8-7.7) K/mm3 PT 13.8 (12.2-14.9) Sec. INR 1.08 (0.87-1.13) APTT (24.2-36.6) Sec. Sodium (137-145) mmol/L Potassium (3.6-5.0) mmol/L Chloride (98-107) mmol/L Carbon Dioxide (22-30) mmol/L Anion Gap mmol/L BUN (7-17) mg/dL Creatinine (0.6-1.2) mg/dL Estimated GFR ml/min BUN/Creatinine Ratio % Glucose (65-100) mg/dL Lactic Acid (0.7-2.0) mmol/L Calcium (8.4-10.2) mg/dL Magnesium (1.7-2.3) mg/dL Total Bilirubin (0.1-1.2) mg/dL AST (5-40) units/L ALT (7-56) units/L Alkaline Phosphatase (35-129) units/L Total Creatine Kinase (30-135) units/L Troponin T (0.00-0.029) ng/mL Total Protein (6.3-8.2) g/dL Albumin (3.9-5) g/dL Albumin/Globulin Ratio % Triglycerides (2-149) mg/dL Cholesterol (50-199) mg/dL LDL Cholesterol Direct (50-130) mg/dL HDL Cholesterol (40-59) mg/dL Cholesterol/HDL Ratio % TSH (0.270-4.200) mlU/mL Blood Type Antibody Screen - EKG Data -: EKG Interpreted by Nc - EKG Data 06/09/20 13:52 EKG #1 shows a narrow complex tachycardia, rate 113 bpm, atrial tachycardia versus junctional tachycardia, left axis deviation, QTC prolonged, motion artifact, poor R wave progression. This is not a STEMI. EKG #2 shows a sinus rhythm, 99 bpm, with a left axis deviation, motion artifact, poor R wave progression, QTC prolonged. This is an abnormal EKG. This is not a STEMI. - Radiology Data Radiology results: pending, report reviewed, image reviewed For the chest shows no acute findings, chronic findings noted. Critical Care Time: Yes Critical care time in (mins) excluding proc time.: 35 Critical care attestation.: If time is entered above; I have spent that time in minutes in the direct care of this critically ill patient, excluding procedure time. ED Disposition Clinical Impression: HIV disease, Generalized weakness, Elevated troponin, ESRD on peritoneal shanthi lysis, History of GI bleed, Palpitations, Occult GI bleeding Disposition: DC-09 OP ADMIT IP TO THIS HOSP Is pt being admited?: Yes Does the pt Need Aspirin: No Condition: Good
[2020-06-09 12:18] LABS: BUN/Creatinine Ratio 3
[2020-06-09 12:19] LABS: Alanine Aminotransferase < 5 units/L (7-56)
[2020-06-09 12:25] LABS: Chol/HDL Ratio 2.21 %; HDL Cholesterol 55 mg/dL (40-59); LDL Cholesterol,Direct 62 mg/dL (50-130)
[2020-06-09] MEDS ORDERED: PANTOPRAZOLE 40 MG INJ IV ONE (12:33)
[2020-06-09] MEDS ORDERED: cefTRIAXone/NS 1 GM/50 ML 1 GM/50 ML BAG IV ONE (12:47)
[2020-06-09] MEDS ORDERED: ACETAMINOPHEN 325 MG TAB PO PRN ×2 (12:52→12:53)
[2020-06-09] MEDS ORDERED: HYDROmorphone 1 MG/1 ML INJ IV PRN (12:53)
[2020-06-09] MEDS ORDERED: ONDANSETRON 4 MG ODT TAB PO PRN (12:56)
[2020-06-09 12:57] LABS: INR 1.08 (0.87-1.13)
--- NOTE | 2020-06-09 12:59 | History and Physical Report ---
History of Present Illness Chief complaint: I feel sick History of present illness: 84 YO Female with HIV Disease, HTN, GERD, CHF, HLD, COPD, ESRD on Daily PD, Vascular Dementia, Cerebral Atherosclerosis, R IJV DVT on therapeutic anticoagulation presents to ED for evaluation. Patient reports "I have not been feeling good". Patient states that she has experienced generalized weakness, shaking chills, low blood pressure over the past 1 day with persistent symptoms over the same timeframe. Patient transported to [facility] via private vehicle for further care and evaluation. Patient seen and evaluated in the emergency department. All lab and imaging studies reviewed. Patient found to be hypotensive with a systolic blood pressure in the 80s, tachycardic with a heart rate of 149. Patient found to have clinical symptoms consistent with sepsis. Patient admitted to medical floor and initiated on sepsis protocol with mild improvement in symptoms. Patient also found to have end-stage renal disease, fluid overload, acidosis, as well as malnutrition. Patient found to be Hemoccult positive in the emergency department. Pt denies fever, chills, CP, Palpitations, Syncope, prolonged travel/immobility, family history of DVT/PE, Productive cough, BRBPR, Hemoptysis, Abdominal pain, NVD, BRBPR, Loose Stools, Melena, skin rash, recent ill contacts, or known exposure to COVID-19. Nephrology consulted in ED. GI team consulted in ED. Prior admission on 06/07/19 reviewed. All listed medication reconciled at time of admission. Advanced care planning conducted in the ED. Past History Past Medical History: COPD, heart failure, HIV/AIDS, hypertension, hyperlipidemia Past Surgical History: cholecystectomy, Other (Colon resection 2013 (uncertain indication). right hip (ball and joint). stents 2 in right leg, 2 in left leg) Social history: Family history: diabetes, hypertension Medications and Allergies Allergies Allergy/AdvReac Type Severity Reaction Status Date / Time Sulfa (Sulfonamide Allergy Itching Verified 06/09/20 13:25 Antibiotics) sulfamethoxazole Allergy Itching Verified 06/09/20 13:25 [From Bactrim] trimethoprim [From Bactrim] Allergy Itching Verified 06/09/20 13:25 Home Medications Medication Instructions Recorded Confirmed Last Taken Type calcitrioL [Rocaltrol] 0.5 mcg PO QDAY #30 capsule 05/26/16 06/09/20 05/13/19 Rx Abacavir [Ziagen TAB] 300 mg PO BID 06/25/16 06/09/20 05/13/19 History Pravastatin [Pravachol] 80 mg PO QHS #30 tablet 11/29/17 06/09/20 05/13/19 Rx Dolutegravir [Tivicay] 1 tab PO DAILY 04/11/19 06/09/20 05/13/19 History Famotidine [Pepcid] 2 tab PO DAILY 04/11/19 06/09/20 05/13/19 History Metoprolol 50 mg PO DAILY 06/07/19 06/09/20 Unknown History Ascorbic Acid [Vitamin C with Lucero 500 mg PO 06/09/20 Unknown History Hips] Aspirin [Adult Aspirin] 81 mg PO DAILY 06/09/20 06/09/20 Unknown History Cholecalciferol (Vitamin D3) 2,000 unit PO DAILY 06/09/20 06/09/20 Unknown History [Vitamin D3 2,000 UNIT CAP] Ferrous Sulfate [Iron 325 MG] 325 mg PO 06/09/20 Unknown History Furosemide [Lasix TAB] 80 mg PO BID 06/09/20 06/09/20 Unknown History Pantoprazole [Protonix] 40 mg PO QDAY 06/09/20 06/09/20 Unknown History Potassium Chloride [K-Dur] 10 meq PO QDAY 06/09/20 06/09/20 Unknown History Sevelamer Carbonate [Renvela] 800 mg PO TIDWM 06/09/20 06/09/20 Unknown History Sodium Bicarbonate 650 mg PO BID 06/09/20 06/09/20 Unknown History Umeclidinium Brm/Vilanterol Tr 1 each IH DAILY 06/09/20 06/09/20 Unknown History [Anoro Ellipta 62.5-25 Mcg INH] Vitamin E 1,000 unit PO 06/09/20 Unknown History diazePAM TAB [Valium] 5 mg PO TID PRN 06/09/20 06/09/20 Unknown History lamiVUDine [Lamivudine] 150 mg PO DAILY 06/09/20 06/09/20 Unknown History lamiVUDine [Lamivudine] 150 mg PO DAILY 06/09/20 06/09/20 Unknown History traMADoL [Ultram] 50 mg PO Q4HR PRN 06/09/20 06/09/20 Unknown History Active Meds: Active Medications Abacavir Sulfate (Abacavir 300 Mg Tab) 300 mg PO BID [facility] Acetaminophen (Acetaminophen 325 Mg Tab) 650 mg PO Q4H PRN PRN Reason: Pain MILD(1-3)/Fever >100.5/RUTH Acetaminophen (Acetaminophen 325 Mg Tab) 650 mg PO Q6H PRN PRN Reason: Pain, Mild (1-3) Apixaban (Apixaban 2.5 Mg Tab) 2.5 mg PO BID [facility]; Protocol Calcitriol (Calcitriol 0.5 Mcg Cap) 0.5 mcg PO QDAY [facility] Cinacalcet (Cinacalcet 30 Mg Tab) 30 mg PO QDAY [facility] Famotidine (Famotidine 20 Mg Tab) mg PO DAILY [facility] Ferrous Gluconate (Ferrous Gluconate 324 Mg Tab) 325 mg PO QDAY [facility] Hydromorphone HCl (Hydromorphone 1 Mg/1 Ml Inj) 0.25 mg IV Q4H PRN PRN Reason: Pain, Moderate (4-6) Ceftriaxone Sodium (Rocephin/Ns 1 Gm/50 Ml) 1 gm in 50 mls @ 100 mls/hr IV ONCE ONE; Protocol Stop: 06/09/20 13:16 Vancomycin HCl 1,000 mg/ (Sodium Chloride) 520 mls @ 333 mls/hr IV ONCE ONE; Protocol Stop: 06/09/20 14:23 Lamivudine (Lamivudine 150 Mg Tab) mg PO QHS [facility] Ondansetron HCl (Ondansetron 4 Mg/2 Ml Inj) 4 mg IV Q8H PRN PRN Reason: Nausea And Vomiting Ondansetron HCl (Ondansetron 4 Mg Odt Tab) 4 mg PO Q8HR PRN PRN Reason: Nausea Polyethylene Glycol (Polyethylene Glycol 3350 17 Gm Powder) 17 gm PO QDAY [facility] Pravastatin Sodium (Pravastatin 80 Mg Tab) 80 mg PO QHS [facility] Sevelamer Carbonate (Sevelamer Carbonate 800 Mg Tab) 800 mg PO QAC [facility] Sodium Chloride (Sodium Chloride 0.9% 10 Ml Flush Syringe) 10 ml IV BID [facility] Sodium Chloride (Sodium Chloride 0.9% 10 Ml Flush Syringe) 10 ml IV PRN PRN PRN Reason: LINE FLUSH Review of Systems Constitutional: chills, weakness, malaise, no fever Ears, nose, mouth and throat: no ear pain, no ear discharge, no tinnitis, no decreased hearing, no nasal congestion Cardiovascular: no chest pain, no orthopnea, no palpitations, no rapid/irregular heart beat, no edema, no syncope Respiratory: no cough, no excessive sputum, no hemoptysis, no shortness of breath Gastrointestinal: no abdominal pain, no nausea, no vomiting, no diarrhea, no constipation Genitourinary Female: no pelvic pain, no flank pain, no dysuria, no urinary frequency, no urgency Rectal: no pain, no incontinence, no bleeding Musculoskeletal: no neck stiffness, no arm numbness/tingling, no low back pain Integumentary: no rash, no pruritis, no sores, no jaundice, no boils Neurological: no transient paralysis, no paralysis, no weakness, no parathesias, no numbness, no tingling, no seizures, no syncope Psychiatric: no anxiety, no memory loss, no insomnia, no hypersomnia, no change in libido, no suicidal ideation, no disorientation Endocrine: no heat intolerance, no polyphagia, no excessive thirst, no polydipsia, no polyuria, no nocturia, no excessive sweating Hematologic/Lymphatic: no easy bruising, no easy bleeding, no lymphedema Allergic/Immunologic: no urticaria, no allergic rhinitis, no persistent infections Exam - Constitutional Vitals: Temp Pulse Resp BP Pulse Ox 97.6 F 98 H 18 120/75 99 06/09/20 10:59 06/09/20 12:19 06/09/20 12:19 06/09/20 12:19 06/09/20 12:19 General appearance: Present: mild distress - EENT Eyes: Present: PERRL ENT: hearing intact, clear oral mucosa - Neck Neck: Present: supple, normal ROM - Respiratory Respiratory effort: normal Respiratory: bilateral: CTA - Cardiovascular Rhythm: other (Tachycardia, hypotension) Heart Sounds: Present: S1 & S2. Absent: rub, click - Extremities Extremities: pulses symmetrical, No edema Peripheral Pulses: abnormal (Capillary refill greater than 3.5 seconds) - Abdominal General gastrointestinal: Present: soft, non-tender, non-distended, normal bowel sounds Female genitourinary: Present: normal - Integumentary Integumentary: Present: clear, warm, dry - Musculoskeletal Musculoskeletal: gait normal, strength equal bilaterally - Psychiatric Psychiatric: appropriate mood/affect, intact judgment & insight - Neurologic Neurologic: CNII-XII intact, moves all extremities HEART Score - HEART Score Troponin: Troponin T 0.085 ng/mL (0.00-0.029) H 06/09/20 11:19 Results - Labs CBC & Chem 7: 06/09/20 11:19 06/09/20 11:19 Labs: Abnormal lab results 06/09/20 06/09/20 06/09/20 Range/Units 11:19 11:19 11:19 RBC 3.16 L (3.65-5.03) M/mm3 MCV 100 H (79-97) fl MCH 33 H (28-32) pg RDW 24.1 H (13.2-15.2) % Plt Count 493 H (140-440) K/mm3 Leslie % (Auto) 10.8 H (0.0-7.3) % Leslie # (Auto) 1.1 H (0.0-0.8) K/mm3 Sodium 134 L (137-145) mmol/L Chloride 92.1 L (98-107) mmol/L BUN 33 H (7-17) mg/dL Creatinine 10.5 H (0.6-1.2) mg/dL Glucose 110 H (65-100) mg/dL Lactic Acid 2.80 H* (0.7-2.0) mmol/L Magnesium (1.7-2.3) mg/dL ALT < 5 L (7-56) units/L Troponin T 0.085 H (0.00-0.029) ng/mL Albumin 3.2 L (3.9-5) g/dL 06/09/20 Range/Units 11:19 RBC (3.65-5.03) M/mm3 MCV (79-97) fl MCH (28-32) pg RDW (13.2-15.2) % Plt Count (140-440) K/mm3 Leslie % (Auto) (0.0-7.3) % Leslie # (Auto) (0.0-0.8) K/mm3 Sodium (137-145) mmol/L Chloride (98-107) mmol/L BUN (7-17) mg/dL Creatinine (0.6-1.2) mg/dL Glucose (65-100) mg/dL Lactic Acid (0.7-2.0) mmol/L Magnesium 2.40 H (1.7-2.3) mg/dL ALT (7-56) units/L Troponin T (0.00-0.029) ng/mL Albumin (3.9-5) g/dL Assessment and Plan - Patient Problems (1) Sepsis Current Visit: Yes Status: Acute Plan to address problem: Sepsis protocol: CBC, CMP, IV antibiotic therapy, serial lactic acid level, blood culture, maintain mean arterial pressure greater than or equal to 65. IV fluid resuscitation therapy as clinically indicated. Care is taken to avoid fluid overload in patient with end-stage renal disease. Monitor fluid balance. (2) Metabolic acidosis Current Visit: Yes Status: Acute Plan to address problem: BMP, repeat BMP in a.m., serial lactic acid level, supportive care, treat sepsis. (3) Hyponatremia Current Visit: Yes Status: Acute Plan to address problem: Encourage fluid intake, BMP, repeat BMP in a.m. (4) GERD (gastroesophageal reflux disease) Current Visit: No Status: Chronic Qualifiers: Esophagitis presence: without esophagitis Qualified Code(s): K21.9 - Gastro-esophageal reflux disease without esophagitis Plan to address problem: PPI therapy, supportive care. (5) HIV (human immunodeficiency virus infection) Current Visit: No Status: Chronic Plan to address problem: Continue current therapy, outpatient infectious disease service follow-up. (6) End-stage renal disease on peritoneal dialysis Current Visit: Yes Status: Acute Plan to address problem: Nephrology team consulted in ED, dialysis as per renal team. (7) Heme positive stool Current Visit: Yes Status: Acute Plan to address problem: PPI therapy, GI team consulted in ED. (8) DVT prophylaxis Current Visit: Yes Status: Acute Plan to address problem: SCD to bilateral lower extremities while in bed, continue prehospital therapeutic anticoagulation with Eliquis. (9) Advance care planning Current Visit: Yes Status: Acute Plan to address problem: Disease education conducted, care plan discussed, prognosis discussed, patient knowledges understanding and agreement with care plan, +30 minutes.
[2020-06-09] MEDS ORDERED: VANCOMYCIN PHARMACY TO DOSE IV SCH (13:00)
[2020-06-09] MEDS ORDERED: SODIUM CHLORIDE 0.9% 1000 ML 1,000 ML IV ONE (13:23)
[2020-06-09] MEDS ORDERED: VANCOMYCIN/NS 1 GM/250 ML 1 GM/250 ML BAG IV ONE (15:00)
[2020-06-09] MEDS: SEVELAMER CARBONATE 800 MG TAB PO SCH (17:29)
--- NOTE | 2020-06-09 17:33 | Consultation ---
History of Present Illness - Reason for Consult Consult date: 06/09/20 end stage renal disease - History of Present Illness 84 year old woman ESRD on PD, HIV Disease, HTN, GERD, CHF, HLD, COPD, Vascular Dementia, Cerebral Atherosclerosis presents for feeling poorly. Notes that PD has been going well per her report, but states that she has been feeling weak with chills for past day. Notes that she was in [facility] not too long ago for stomach pain, GI infection. In ED here, found to be hypotensive with a systolic blood pressure in the 80s, tachycardic, began sepsis protocol. She is currently feeling "ok" and denies any drain pains, dyspnea, edema, appetite issues. Review of systems: Constitutional: chills, weakness, malaise, no fever Ears, nose, mouth and throat: no ear pain, no ear discharge, no tinnitis, no decreased hearing, no nasal congestion Cardiovascular: no chest pain, no orthopnea, no palpitations, no rapid/irregular heart beat, no edema, no syncope Respiratory: no cough, no excessive sputum, no hemoptysis, no shortness of breath Gastrointestinal: no abdominal pain, no nausea, no vomiting, no diarrhea, no constipation Genitourinary Female: no pelvic pain, no flank pain, no dysuria, no urinary frequency, no urgency Rectal: no pain, no incontinence, no bleeding Musculoskeletal: no neck stiffness, no arm numbness/tingling, no low back pain Integumentary: no rash, no pruritis, no sores, no jaundice, no boils Neurological: no transient paralysis, no paralysis, no weakness, no parathesias, no numbness, no tingling, no seizures, no syncope Psychiatric: no anxiety, no memory loss, no insomnia, no hypersomnia, no change in libido, no suicidal ideation, no disorientation Endocrine: no heat intolerance, no polyphagia, no excessive thirst, no polydi psia, no polyuria, no nocturia, no excessive sweating Hematologic/Lymphatic: no easy bruising, no easy bleeding, no lymphedema Allergic/Immunologic: no urticaria, no allergic rhinitis, no persistent infections Past History Past Medical History: COPD, heart failure, HIV/AIDS, hypertension, hyperlipidemia Past Surgical History: cholecystectomy, Other (Colon resection 2013 (uncertain indication). right hip (ball and joint). stents 2 in right leg, 2 in left leg) Social history: Family history: diabetes, hypertension Medications and Allergies Allergies Allergy/AdvReac Type Severity Reaction Status Date / Time Sulfa (Sulfonamide Allergy Itching Verified 06/09/20 13:25 Antibiotics) sulfamethoxazole Allergy Itching Verified 06/09/20 13:25 [From Bactrim] trimethoprim [From Bactrim] Allergy Itching Verified 06/09/20 13:25 Home Medications Medication Instructions Recorded Confirmed Last Taken Type calcitrioL [Rocaltrol] 0.5 mcg PO QDAY #30 capsule 05/26/16 06/09/20 05/13/19 Rx Abacavir [Ziagen TAB] 300 mg PO BID 06/25/16 06/09/20 05/13/19 History Pravastatin [Pravachol] 80 mg PO QHS #30 tablet 11/29/17 06/09/20 05/13/19 Rx Dolutegravir [Tivicay] 1 tab PO DAILY 04/11/19 06/09/20 05/13/19 History Famotidine [Pepcid] 2 tab PO DAILY 04/11/19 06/09/20 05/13/19 History Metoprolol 50 mg PO DAILY 06/07/19 06/09/20 Unknown History Ascorbic Acid [Vitamin C with Lucero 500 mg PO 06/09/20 Unknown History Hips] Aspirin [Adult Aspirin] 81 mg PO DAILY 06/09/20 06/09/20 Unknown History Cholecalciferol (Vitamin D3) 2,000 unit PO DAILY 06/09/20 06/09/20 Unknown History [Vitamin D3 2,000 UNIT CAP] Ferrous Sulfate [Iron 325 MG] 325 mg PO 06/09/20 Unknown History Furosemide [Lasix TAB] 80 mg PO BID 06/09/20 06/09/20 Unknown History Pantoprazole [Protonix] 40 mg PO QDAY 06/09/20 06/09/20 Unknown History Potassium Chloride [K-Dur] 10 meq PO QDAY 06/09/20 06/09/20 Unknown History Sevelamer Carbonate [Renvela] 800 mg PO TIDWM 06/09/20 06/09/20 Unknown History Sodium Bicarbonate 650 mg PO BID 06/09/20 06/09/20 Unknown History Umeclidinium Brm/Vilanterol Tr 1 each IH DAILY 06/09/20 06/09/20 Unknown History [Anoro Ellipta 62.5-25 Mcg INH] Vitamin E 1,000 unit PO 06/09/20 Unknown History diazePAM TAB [Valium] 5 mg PO TID PRN 06/09/20 06/09/20 Unknown History lamiVUDine [Lamivudine] 150 mg PO DAILY 06/09/20 06/09/20 Unknown History lamiVUDine [Lamivudine] 150 mg PO DAILY 06/09/20 06/09/20 Unknown History traMADoL [Ultram] 50 mg PO Q4HR PRN 06/09/20 06/09/20 Unknown History Active Meds: Active Medications Abacavir Sulfate (Abacavir 300 Mg Tab) 300 mg PO BID [facility] Acetaminophen (Acetaminophen 325 Mg Tab) 650 mg PO Q4H PRN PRN Reason: Pain MILD(1-3)/Fever >100.5/RUTH Apixaban (Apixaban 2.5 Mg Tab) 2.5 mg PO BID [facility]; Protocol Calcitriol (Calcitriol 0.5 Mcg Cap) 0.5 mcg PO QDAY [facility] Cinacalcet (Cinacalcet 30 Mg Tab) 30 mg PO QDAY [facility] Famotidine (Famotidine 20 Mg Tab) 20 mg PO DAILY [facility] Ferrous Gluconate (Ferrous Gluconate 324 Mg Tab) 324 mg PO QDAY [facility] Hydromorphone HCl (Hydromorphone 1 Mg/1 Ml Inj) 0.25 mg IV Q4H PRN PRN Reason: Pain, Moderate (4-6) Lamivudine (Lamivudine 50 Mg/5 Ml Oral Liqd) 25 mg PO QDAY [facility] Ondansetron HCl (Ondansetron 4 Mg/2 Ml Inj) 4 mg IV Q8H PRN PRN Reason: Nausea And Vomiting Ondansetron HCl (Ondansetron 4 Mg Odt Tab) 4 mg PO Q8HR PRN PRN Reason: Nausea Polyethylene Glycol (Polyethylene Glycol 3350 17 Gm Powder) 17 gm PO QDAY [facility] Pravastatin Sodium (Pravastatin 80 Mg Tab) 80 mg PO QHS [facility] Sevelamer Carbonate (Sevelamer Carbonate 800 Mg Tab) 800 mg PO QAC [facility] Last Admin: 06/09/20 17:29 Dose: 800 mg Documented by: Sodium Chloride (Sodium Chloride 0.9% 10 Ml Flush Syringe) 10 ml IV BID [facility] Sodium Chloride (Sodium Chloride 0.9% 10 Ml Flush Syringe) 10 ml IV PRN PRN PRN Reason: LINE FLUSH Exam - Vital Signs Vital signs: Vital Signs Temp Pulse Resp BP Pulse Ox 97.6 F 149 H 20 81/49 100 06/09/20 10:59 06/09/20 10:59 06/09/20 10:59 06/09/20 10:59 06/09/20 10:59 - Physical Exam Narrative exam: Constitutional: no acute distress Head: NC/AT Neck: supple Lungs: clear to auscultation CV: RRR, no M/R/G Abdomen: soft, non-tender, bowel sounds present, PD catheter site C/D/I in appearance Back: nontender Extremities: no edema, pulses WNL Skin: intact Neuro: no focal deficits, alert and oriented x4 Results - Lab Results 06/09/20 11:19 06/09/20 11:19 Most recent lab results Calcium 9.9 mg/dL (8.4-10.2) 06/09/20 11:19 Magnesium 2.40 mg/dL (1.7-2.3) H 06/09/20 11:19 Assessment and Plan # ESRD: on PD, continue PD as per outpatient settings, patient will need to have family bring machine to hospital if PD machine unavailable, use 1.5% dextrose bags for now given sepsis and likely volume down # Sepsis, Lactic Acidosis: management per primary, will order PD fluid cell count, culture to rule out peritonitis, please obtain # HIV # HTN: BP stable # Stool Heme Positive: GI consult pending # Anemia in ESRD: hemoglobin at goal for ESRD, no indication for ESAs acutely
--- NOTE | 2020-06-09 18:39 | Gastroenterology Consultation ---
History of Present Illness - Reason for Consult Consult date: 06/09/20 anemia Requesting physician: GEOVANY LIRIANO - History of Present Illness This is an 84 yo female with pmh of ESRD on PD, HTN, COPD, HIV, CHF, pulmonary HTN, PVD, chronic anemia presenting to the ED for weakness and fatigue. Noted to be tachycardic on initial exam and improved with IVF. She is admitted for sepsis. GI consulted for anemia with occult blood positive stool. Patient denies any red blood in the stools, diarrhea, abdominal pain, or nausea/vomiting. She reports dark stools but not black stools. She recently was admitted at [facility] for sepsis. Also saw [facility], Dr. Ravi at [facility] last week for anemia. EGD and colonoscopy scheduled for next month. Prior endoscopy: EGD/enteroscopy on 05/14/[address] 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 Bx results was positive for H pylori and patient was started on treatment. Last colonoscopy 2016 (diverticulosis, colon polyp, and s/p colon resection from recurrent diverticu litis). [facility] [facility] es[facility], 2 cm hiatal hernia. Nodule in the duodenal bulb, mild irregularity in the prepyloric area.negative biopsies EGD 06/[address] Ravi at [facility] multiple small ulcers in the duodenum. Biopsies show atrophic gastritis. No H. Pylori. Medication list reviewed Past History Past Medical History: COPD, heart failure, HIV/AIDS, hypertension, hyperlipidemia Past Surgical History: cholecystectomy, Other (Colon resection 2013 (uncertain indication). right hip (ball and joint). stents 2 in right leg, 2 in left leg) Social history: Family history: diabetes, hypertension Medications and Allergies Allergies Allergy/AdvReac Type Severity Reaction Status Date / Time Sulfa (Sulfonamide Allergy Itching Verified 06/09/20 13:25 Antibiotics) sulfamethoxazole Allergy Itching Verified 06/09/20 13:25 [From Bactrim] trimethoprim [From Bactrim] Allergy Itching Verified 06/09/20 13:25 Home Medications Medication Instructions Recorded Confirmed Last Taken Type calcitrioL [Rocaltrol] 0.5 mcg PO QDAY #30 capsule 05/26/16 06/09/20 05/13/19 Rx Abacavir [Ziagen TAB] 300 mg PO BID 06/25/16 06/09/20 05/13/19 History Pravastatin [Pravachol] 80 mg PO QHS #30 tablet 11/29/17 06/09/20 05/13/19 Rx Dolutegravir [Tivicay] 1 tab PO DAILY 04/11/19 06/09/20 05/13/19 History Famotidine [Pepcid] 2 tab PO DAILY 04/11/19 06/09/20 05/13/19 History Metoprolol 50 mg PO DAILY 06/07/19 06/09/20 Unknown History Ascorbic Acid [Vitamin C with Lucero 500 mg PO 06/09/20 Unknown History Hips] Aspirin [Adult Aspirin] 81 mg PO DAILY 06/09/20 06/09/20 Unknown History Cholecalciferol (Vitamin D3) 2,000 unit PO DAILY 06/09/20 06/09/20 Unknown History [Vitamin D3 2,000 UNIT CAP] Ferrous Sulfate [Iron 325 MG] 325 mg PO 06/09/20 Unknown History Furosemide [Lasix TAB] 80 mg PO BID 06/09/20 06/09/20 Unknown History Pantoprazole [Protonix] 40 mg PO QDAY 06/09/20 06/09/20 Unknown History Potassium Chloride [K-Dur] 10 meq PO QDAY 06/09/20 06/09/20 Unknown History Sevelamer Carbonate [Renvela] 800 mg PO TIDWM 06/09/20 06/09/20 Unknown History Sodium Bicarbonate 650 mg PO BID 06/09/20 06/09/20 Unknown History Umeclidinium Brm/Vilanterol Tr 1 each IH DAILY 06/09/20 06/09/20 Unknown History [Anoro Ellipta 62.5-25 Mcg INH] Vitamin E 1,000 unit PO 06/09/20 Unknown History diazePAM TAB [Valium] 5 mg PO TID PRN 06/09/20 06/09/20 Unknown History lamiVUDine [Lamivudine] 150 mg PO DAILY 06/09/20 06/09/20 Unknown History lamiVUDine [Lamivudine] 150 mg PO DAILY 06/09/20 06/09/20 Unknown History traMADoL [Ultram] 50 mg PO Q4HR PRN 06/09/20 06/09/20 Unknown History Active Meds: Active Medications Abacavir Sulfate (Abacavir 300 Mg Tab) 300 mg PO BID [facility] Acetaminophen (Acetaminophen 325 Mg Tab) 650 mg PO Q4H PRN PRN Reason: Pain MILD(1-3)/Fever >100.5/RUTH Apixaban (Apixaban 2.5 Mg Tab) 2.5 mg PO BID [facility]; Protocol Calcitriol (Calcitriol 0.5 Mcg Cap) 0.5 mcg PO QDAY [facility] Cinacalcet (Cinacalcet 30 Mg Tab) 30 mg PO QDAY [facility] Famotidine (Famotidine 20 Mg Tab) 20 mg PO DAILY [facility] Ferrous Gluconate (Ferrous Gluconate 324 Mg Tab) 324 mg PO QDAY [facility] Hydromorphone HCl (Hydromorphone 1 Mg/1 Ml Inj) 0.25 mg IV Q4H PRN PRN Reason: Pain, Moderate (4-6) Lamivudine (Lamivudine 50 Mg/5 Ml Oral Liqd) 25 mg PO QDAY [facility] Ondansetron HCl (Ondansetron 4 Mg/2 Ml Inj) 4 mg IV Q8H PRN PRN Reason: Nausea And Vomiting Ondansetron HCl (Ondansetron 4 Mg Odt Tab) 4 mg PO Q8HR PRN PRN Reason: Nausea Polyethylene Glycol (Polyethylene Glycol 3350 17 Gm Powder) 17 gm PO QDAY [facility] Pravastatin Sodium (Pravastatin 80 Mg Tab) 80 mg PO QHS [facility] Sevelamer Carbonate (Sevelamer Carbonate 800 Mg Tab) 800 mg PO QAC [facility] Last Admin: 06/09/20 17:29 Dose: 800 mg Documented by: Sodium Chloride (Sodium Chloride 0.9% 10 Ml Flush Syringe) 10 ml IV BID [facility] Sodium Chloride (Sodium Chloride 0.9% 10 Ml Flush Syringe) 10 ml IV PRN PRN PRN Reason: LINE FLUSH Review of Systems - Review of Systems All systems: negative Constitutional: no weight loss, no weight gain Cardiovascular: no chest pain Gastrointestinal: constipation, no abdominal pain, no nausea, no vomiting, no diarrhea, no BRBPR, no melena Rectal: no pain Neurological: weakness Psychiatric: no anxiety Hematologic/Lymphatic: no easy bruising Allergic/Immunologic: no wheezing Exam - Constitutional Vital Signs: Temp Pulse Resp BP Pulse Ox 97.6 F 98 H 26 H 151/86 100 06/09/20 10:59 06/09/20 16:21 06/09/20 16:21 06/09/20 16:21 06/09/20 16:21 General appearance: no acute distress - Neck Neck: supple - Respiratory Respiratory effort: normal - Cardiovascular Rhythm: regular Heart Sounds: Present: S1 & S2 - Gastrointestinal General gastrointestinal: Present: soft, non-tender, non-distended, normal bowel sounds - Integumentary Integumentary: Present: clear, warm - Psychiatric Psychiatric: appropriate mood/affect - Labs CBC & Chem 7: 06/09/20 11:19 06/09/20 11:19 Lab Results: Laboratory Results - last 24 hr 06/09/20 06/09/20 06/09/20 11:19 11:19 11:19 WBC 10.3 RBC 3.16 L Hgb 10.3 Hct 31.6 MCV 100 H MCH 33 H MCHC 33 RDW 24.1 H Plt Count 493 H Lymph % (Auto) 27.1 [place] % (Auto) 10.8 H Eos % (Auto) 4.1 Baso % (Auto) 0.7 Lymph # (Auto) 2.8 [place] # (Auto) 1.1 H Eos # (Auto) 0.4 Baso # (Auto) 0.1 Seg Neutrophils % 57.3 Seg Neutrophils # 5.9 PT 14.0 INR 1.10 APTT 30.8 Sodium 134 L Potassium 4.0 Chloride 92.1 L Carbon Dioxide 23 Anion Gap 23 BUN 33 H Creatinine 10.5 H Estimated GFR 4 BUN/Creatinine Ratio 3 Glucose 110 H Lactic Acid Calcium 9.9 Magnesium Total Bilirubin 0.20 AST 9 ALT < 5 L Alkaline Phosphatase 39 Total Creatine Kinase Troponin T 0.085 H Total Protein 6.8 Albumin 3.2 L Albumin/Globulin Ratio 0.9 Triglycerides 111 Cholesterol 122 LDL Cholesterol Direct 62 HDL Cholesterol 55 Cholesterol/HDL Ratio 2.21 TSH Blood Type Antibody Screen 06/09/20 06/09/20 06/09/20 11:19 11:19 11:25 WBC RBC Hgb Hct MCV MCH MCHC RDW Plt Count Lymph % (Auto) [place] % (Auto) Eos % (Auto) Baso % (Auto) Lymph # (Auto) [place] # (Auto) Eos # (Auto) Baso # (Auto) Seg Neutrophils % Seg Neutrophils # PT INR APTT Sodium Potassium Chloride Carbon Dioxide Anion Gap BUN Creatinine Estimated GFR BUN/Creatinine Ratio Glucose Lactic Acid 2.80 H* Calcium Magnesium 2.40 H Total Bilirubin AST ALT Alkaline Phosphatase Total Creatine Kinase Troponin T Total Protein Albumin Albumin/Globulin Ratio Triglycerides Cholesterol LDL Cholesterol Direct HDL Cholesterol Cholesterol/HDL Ratio TSH Blood Type A POSITIVE Antibody Screen Negative 06/09/20 06/09/20 06/09/20 12:34 12:34 12:34 WBC RBC Hgb Hct MCV MCH MCHC RDW Plt Count Lymph % (Auto) [place] % (Auto) Eos % (Auto) Baso % (Auto) Lymph # (Auto) [place] # (Auto) Eos # (Auto) Baso # (Auto) Seg Neutrophils % Seg Neutrophils # PT INR APTT Sodium Potassium Chloride Carbon Dioxide Anion Gap BUN Creatinine Estimated GFR BUN/Creatinine Ratio Glucose Lactic Acid 4.40 H* Calcium Magnesium Total Bilirubin AST ALT Alkaline Phosphatase Total Creatine Kinase 20 L Troponin T Total Protein Albumin Albumin/Globulin Ratio Triglycerides Cholesterol LDL Cholesterol Direct HDL Cholesterol Cholesterol/HDL Ratio TSH 3.800 Blood Type Antibody Screen 06/09/20 06/09/20 06/09/20 12:34 14:22 14:22 WBC RBC Hgb Hct MCV MCH MCHC RDW Plt Count Lymph % (Auto) [place] % (Auto) Eos % (Auto) Baso % (Auto) Lymph # (Auto) [place] # (Auto) Eos # (Auto) Baso # (Auto) Seg Neutrophils % Seg Neutrophils # PT 13.8 INR 1.08 APTT Sodium Potassium Chloride Carbon Dioxide Anion Gap BUN Creatinine Estimated GFR BUN/Creatinine Ratio Glucose Lactic Acid 4.40 H* Calcium Magnesium Total Bilirubin AST ALT Alkaline Phosphatase Total Creatine Kinase Troponin T 0.070 H Total Protein Albumin Albumin/Globulin Ratio Triglycerides Cholesterol LDL Cholesterol Direct HDL Cholesterol Cholesterol/HDL Ratio TSH Blood Type Antibody Screen Assessment and Plan # Anemia - Recent admission at [facility] with Hgb between 7-8. Hgb here at 10. - no overt signs of GI bleeding. - chronic anemia without signs of active bleeding. - prior endoscopy work up as below. EGD/enteroscopy on 05/14/[address] 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 Bx results was positive for H pylori and patient was started on treatment. Last colonoscopy 2016 (diverticulosis, colon polyp, and s/p colon resection from recurrent diverticulitis). EGD 11/[address] Ravi at [facility] 1 esophagitis, 2 cm hiatal hernia. Nodule in the duodenal bulb, mild irregularity in the prepyloric area.negative biopsies EGD 06/[address] Ravi at [facility] multiple small ulcers in the duodenum. Biopsies show atrophic gastritis. No H. Pylori. Rec - monitor H/H. - no plans for endoscopy given no active bleeding and recent EGD at outside [facility]. - patient can follow up with Dr. Ravi for outpatient EGD/colonoscopy as scheduled once recovered from current acute issues with sepsis. - will sign off. please call with questions.
[2020-06-09] MEDS: PRAVASTATIN 80 MG TAB PO SCH (22:00)
[2020-06-09] MEDS: APIXABAN 2.5 MG TAB PO SCH (22:00)
[2020-06-10 05:50] LABS: Basophils # (Auto) 0.1 K/mm3 (0.0-0.1); Basophils % (Auto) 0.9 % (0.0-1.8); Eosinophils # (Auto) 0.4 K/mm3 (0.0-0.4); Eosinophils % (Auto) 4.6 % (0.0-4.3); Hematocrit 26.9 % (30.3-42.9); Hemoglobin 8.8 gm/dl (10.1-14.3); Lymphocytes # (Auto) 1.7 K/mm3 (1.2-5.4); Lymphocytes % (Auto) 20.7 % (13.4-35.0); Mean Corpuscular HGB Conc 33 % (30-34); Mean Corpuscular Volume 102 fl (79-97); Monocytes % (Auto) 12.6 % (0.0-7.3); Platelet Count 375 K/mm3 (140-440); Red Blood Count 2.64 M/mm3 (3.65-5.03)
[2020-06-10 06:01] LABS: Calcium 8.5 mg/dL (8.4-10.2)
[2020-06-10 06:04] LABS: Red Cell Distribution Width 24.9 % (13.2-15.2)
[2020-06-10] MEDS: ABACAVIR 300 MG TAB PO SCH ×3 (07:47→21:26)
[2020-06-10] MEDS: SEVELAMER CARBONATE 800 MG TAB PO SCH ×3 (10:00→17:45)
[2020-06-10] MEDS ORDERED: FAMOTIDINE 20 MG TAB PO SCH (10:00)
[2020-06-10] MEDS: CALCITRIOL 0.5 MCG CAP PO SCH (10:00)
[2020-06-10] MEDS ORDERED: FERROUS GLUCONATE 324 MG TAB PO SCH (10:00)
[2020-06-10] MEDS: CINACALCET 30 MG TAB PO SCH (10:00)
[2020-06-10] MEDS: APIXABAN 2.5 MG TAB PO SCH (10:00)
[2020-06-10] MEDS: POLYETHYLENE GLYCOL 3350 17 GM POWDER PO SCH (10:01)
[2020-06-10] MEDS: cefTRIAXone/NS 1 GM/50 ML 1 GM/50 ML BAG IV SCH (10:01)
[2020-06-10] MEDS: DOLUTEGRAVIR 50 MG TAB PO SCH (10:24)
[2020-06-10] MEDS: lamiVUDine 50 MG/5 ML ORAL LIQD PO SCH (10:24)
--- NOTE | 2020-06-10 12:05 | Consultation ---
History of Present Illness Consult date: 06/10/20 Requesting physician: GEOVANY LIRIANO Consult reason: tachycardia History of present illness: The pt is a 83 YO female with a past medical history significant for ESRD on PD, HTN with intermittent hypotension requiring PRN midodrine, mod to severe MR, PVD s/p leg intervention, carotid stenosis (followed by [facility]), COPD, HLP, HIV, HFpEF, pulmonary HTN, diverticulosis, GI bleed with AVMs, anemia, former tobacco and ETOH use. She is followed in our office by Dr. Mercado. She presented with c/o generalized weakness, fatigue and palpitations for 1 day prior to arrival. She denies any chest pain, SOB, n/v, diaphoresis, dizziness or syncope. Following arrival, she was noted to have occult blood positive stool, although pt denies any change in bowel movements or overt signs of bleeding at home. She was also noted to have tachycardia for which cardiology has been consulted. Review of telemetry and ECGs since admission show apparent sinus tachycardia, pt currently in NSR with HR 80s. On evaluation, pt reports resolution of her symptoms. She states she feels ready to discharge home. Echo done 01/2020 showed EF 55-60%, mod to severe MR, mild to mod TR, RVSP 27mmHg. Lexiscan MPI stress test done 08/2018 was negative. Past History Past Medical History: COPD, heart failure, HIV/AIDS, hypertension, hyperlipidemia Past Surgical History: cholecystectomy, Other (Colon resection 2013 (uncertain indication). right hip (ball and joint). stents 2 in right leg, 2 in left leg) Social history: Family history: diabetes, hypertension Medications and Allergies Allergies Allergy/AdvReac Type Severity Reaction Status Date / Time Sulfa (Sulfonamide Allergy Itching Verified 06/09/20 13:25 Antibiotics) sulfamethoxazole Allergy Itching Verified 06/09/20 13:25 [From Bactrim] trimethoprim [From Bactrim] Allergy Itching Verified 06/09/20 13:25 Home Medications Medication Instructions Recorded Confirmed Last Taken Type calcitrioL [Rocaltrol] 0.5 mcg PO QDAY #30 capsule 05/26/16 06/09/20 05/13/19 Rx Abacavir [Ziagen TAB] 300 mg PO BID 06/25/16 06/09/20 05/13/19 History Pravastatin [Pravachol] 80 mg PO QHS #30 tablet 11/29/17 06/09/20 05/13/19 Rx Dolutegravir [Tivicay] 1 tab PO DAILY 04/11/19 06/09/20 05/13/19 History Famotidine [Pepcid] 2 tab PO DAILY 04/11/19 06/09/20 05/13/19 History Metoprolol 50 mg PO DAILY 06/07/19 06/09/20 Unknown History Ascorbic Acid [Vitamin C with Lucero 500 mg PO 06/09/20 Unknown History Hips] Aspirin [Adult Aspirin] 81 mg PO DAILY 06/09/20 06/09/20 Unknown History Cholecalciferol (Vitamin D3) 2,000 unit PO DAILY 06/09/20 06/09/20 Unknown History [Vitamin D3 2,000 UNIT CAP] Ferrous Sulfate [Iron 325 MG] 325 mg PO 06/09/20 Unknown History Furosemide [Lasix TAB] 80 mg PO BID 06/09/20 06/09/20 Unknown History Pantoprazole [Protonix] 40 mg PO QDAY 06/09/20 06/09/20 Unknown History Potassium Chloride [K-Dur] 10 meq PO QDAY 06/09/20 06/09/20 Unknown History Sevelamer Carbonate [Renvela] 800 mg PO TIDWM 06/09/20 06/09/20 Unknown History Sodium Bicarbonate 650 mg PO BID 06/09/20 06/09/20 Unknown History Umeclidinium Brm/Vilanterol Tr 1 each IH DAILY 06/09/20 06/09/20 Unknown History [Anoro Ellipta 62.5-25 Mcg INH] Vitamin E 1,000 unit PO 06/09/20 Unknown History diazePAM TAB [Valium] 5 mg PO TID PRN 06/09/20 06/09/20 Unknown History lamiVUDine [Lamivudine] 150 mg PO DAILY 06/09/20 06/09/20 Unknown History lamiVUDine [Lamivudine] 150 mg PO DAILY 06/09/20 06/09/20 Unknown History traMADoL [Ultram] 50 mg PO Q4HR PRN 06/09/20 06/09/20 Unknown History Active Meds: Active Medications Abacavir Sulfate (Abacavir 300 Mg Tab) 300 mg PO BID [facility] Last Admin: 06/10/20 10:24 Dose: 300 mg Documented by: Acetaminophen (Acetaminophen 325 Mg Tab) 650 mg PO Q4H PRN PRN Reason: Pain MILD(1-3)/Fever >100.5/RUTH Last Admin: 06/10/20 04:27 Dose: 650 mg Documented by: Calcitriol (Calcitriol 0.5 Mcg Cap) 0.5 mcg PO QDAY [facility] Last Admin: 06/10/20 10:00 Dose: 0.5 mcg Documented by: Cinacalcet (Cinacalcet 30 Mg Tab) 30 mg PO QDAY [facility] Last Admin: 06/10/20 10:00 Dose: 30 mg Documented by: Famotidine (Famotidine 20 Mg Tab) 20 mg PO DAILY [facility] Last Admin: 06/10/20 10:01 Dose: 20 mg Documented by: Ferrous Gluconate (Ferrous Gluconate 324 Mg Tab) 324 mg PO QDAY [facility] Hydromorphone HCl (Hydromorphone 1 Mg/1 Ml Inj) 0.25 mg IV Q4H PRN PRN Reason: Pain, Moderate (4-6) Ceftriaxone Sodium (Rocephin/Ns 1 Gm/50 Ml) 1 gm in 50 mls @ 100 mls/hr IV Q24H [facility]; Protocol Last Admin: 06/10/20 10:01 Dose: 100 mls/hr Documented by: Lamivudine (Lamivudine 50 Mg/5 Ml Oral Liqd) 25 mg PO QDAY [facility] Last Admin: 06/10/20 10:24 Dose: 25 mg Documented by: Ondansetron HCl (Ondansetron 4 Mg/2 Ml Inj) 4 mg IV Q8H PRN PRN Reason: Nausea And Vomiting Ondansetron HCl (Ondansetron 4 Mg Odt Tab) 4 mg PO Q8HR PRN PRN Reason: Nausea Polyethylene Glycol (Polyethylene Glycol 3350 17 Gm Powder) 17 gm PO QDAY [facility] Last Admin: 06/10/20 10:01 Dose: 17 gm Documented by: Pravastatin Sodium (Pravastatin 80 Mg Tab) 80 mg PO QHS [facility] Last Admin: 06/09/20 22:00 Dose: 80 mg Documented by: Sevelamer Carbonate (Sevelamer Carbonate 800 Mg Tab) 800 mg PO QAC [facility] Last Admin: 06/10/20 10:00 Dose: 800 mg Documented by: Sodium Chloride (Sodium Chloride 0.9% 10 Ml Flush Syringe) 10 ml IV BID [facility] Last Admin: 06/10/20 10:01 Dose: 10 ml Documented by: Sodium Chloride (Sodium Chloride 0.9% 10 Ml Flush Syringe) 10 ml IV PRN PRN PRN Reason: LINE FLUSH Review of Systems Constitutional: fatigue, weakness, no fever, no chills, no sweats Ears, nose, mouth and throat: no ear pain, no nose pain, no sinus pressure, no sinus pain Cardiovascular: palpitations, no chest pain, no orthopnea, no edema, no syncope, no lightheadedness, no shortness of breath, no dyspnea on exertion, no high blood pressure, no leg edema Respiratory: no cough, no shortness of breath, no dyspnea on exertion, no congestion, no wheezing, no pain on inspiration Gastrointestinal: no abdominal pain, no nausea, no vomiting, no diarrhea, no constipation, no change in bowel habits Genitourinary Female: no pelvic pain, no flank pain, no dysuria, no urinary frequency, no urgency Musculoskeletal: no neck stiffness, no neck pain, no shooting arm pain, no arm numbness/tingling, no low back pain, no shooting leg pain Integumentary: no rash, no pruritis, no redness, no sores, no wounds Neurological: weakness, no head injury, no paralysis, no parathesias, no numbness, no tingling, no seizures, no syncope Psychiatric: no anxiety Endocrine: no cold intolerance, no heat intolerance Hematologic/Lymphatic: no easy bruising, no easy bleeding Allergic/Immunologic: no urticaria Physical Examination Vital Signs Temp Pulse Resp BP Pulse Ox 97.6 F 149 H 20 81/49 100 06/09/20 10:59 06/09/20 10:59 06/09/20 10:59 06/09/20 10:59 06/09/20 10:59 General appearance: no acute distress HEENT: Positive: PERRL, Normocephaly, Mucus Membranes Moist Neck: Positive: neck supple, trachea midline Cardiac: Positive: Reg Rate and Rhythm, S1/S2 Lungs: Positive: Decreased Breath Sounds Neuro: Positive: Grossly Intact Abdomen: Negative: Tender Skin: Negative: Rash Musculoskeletal: No Pain Extremities: Absent: edema Results 06/10/20 05:06 06/10/20 05:06 Cardiac Enzymes 06/09/20 Range/Units 11:19 AST 9 (5-40) units/L Coagulation 06/09/20 Range/Units 12:34 PT 13.8 (12.2-14.9) Sec. INR 1.08 (0.87-1.13) Lipids 06/09/20 Range/Units 11:19 Triglycerides 111 (2-149) mg/dL Cholesterol 122 (50-199) mg/dL HDL Cholesterol 55 (40-59) mg/dL Cholesterol/HDL Ratio 2.21 % CBC 06/10/20 Range/Units 05:06 WBC 8.0 (4.5-11.0) K/mm3 RBC 2.64 L (3.65-5.03) M/mm3 Hgb 8.8 L (10.1-14.3) gm/dl Hct 26.9 L (30.3-42.9) % Plt Count 375 (140-440) K/mm3 Lymph # (Auto) 1.7 (1.2-5.4) K/mm3 [place] # (Auto) 1.0 H (0.0-0.8) K/mm3 Eos # (Auto) 0.4 (0.0-0.4) K/mm3 Baso # (Auto) 0.1 (0.0-0.1) K/mm3 Comprehensive Metabolic Panel 06/09/20 06/10/20 Range/Units 11:19 05:06 Sodium 134 L 132 L (137-145) mmol/L Potassium 4.0 4.5 (3.6-5.0) mmol/L Chloride 92.1 L 96.0 L (98-107) mmol/L Carbon Dioxide 23 20 L (22-30) mmol/L BUN 33 H 36 H (7-17) mg/dL Creatinine 10.5 H 11.1 H (0.6-1.2) mg/dL Glucose 110 H 84 (65-100) mg/dL Calcium 9.9 8.5 (8.4-10.2) mg/dL AST 9 (5-40) units/L ALT < 5 L (7-56) units/L Alkaline Phosphatase 39 (35-129) units/L Total Protein 6.8 (6.3-8.2) g/dL Albumin 3.2 L (3.9-5) g/dL - Imaging and Cardiology Echo: report reviewed (01/2020 showed EF 55-60%, mod to severe MR, mild to mod TR, RVSP 27mmHg. ) EKG: report reviewed, image reviewed EKG interpretations - Telemetry EKG Rhythm: Sinus Rhythm - EKG Sinus rhythms and dysrhythmias: sinus rhythm Assessment and Plan Pt with GI bleed and anemia. GI consultation noted - no plans for endoscopy given no active bleeding and recent EGD at outside hospital, pt to f/u as OP. Pt was also noted to have tachycardia for which cardiology has been consulted. Review of telemetry and ECGs since admission show apparent sinus tachycardia, pt currently in NSR with HR 80s. On evaluation, pt reports resolution of her symptoms. She states she feels ready to discharge home. Echo done 01/2020 showed EF 55-60%, mod to severe MR, mild to mod TR, RVSP 27mmHg. Currently stable cardiac status. Pt may discharge home from cardiology standpoint. Of note, pt is currently receiving Eliquis 2.5mg BID which has been reconciled as a home medication, although pt denies taking Eliquis at home and there is no record of initiation of Eliquis in our office records. 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 Consider discontinuation of Eliquis per primary team given h/o GI bleeding and current anemia. Follow up in our [place] office with Dr. Mercado on 06/15/2020 @ 3:30PM. The patient has been seen in conjunction with Dr. Pamela Trujillo who agrees with the assessment and plan of care. - Patient Problems (1) Sinus tachycardia Current Visit: Yes Status: Acute (2) GI bleed Current Visit: Yes Status: Acute (3) Anemia Current Visit: Yes Status: Chronic (4) ESRD (end stage renal disease) Current Visit: Yes Status: Chronic (5) PVD (peripheral vascular disease) Current Visit: Yes Status: Chronic (6) HIV (human immunodeficiency virus infection) Current Visit: Yes Status: Chronic (7) Hypertension Current Visit: Yes Status: Chronic Qualifiers: Hypertension type: essential hypertension Qualified Code(s): I10 - Essential (primary) hypertension (8) Hyperlipidemia Current Visit: Yes Status: Chronic (9) Moderate to severe mitral regurgitation Current Visit: Yes Status: Chronic (10) COPD (chronic obstructive pulmonary disease) Current Visit: Yes Status: Chronic Qualifiers: Emphysema type: unspecified (11) History of GI bleed Current Visit: Yes Status: Chronic (12) Elevated troponin Current Visit: Yes Status: Chronic
--- NOTE | 2020-06-10 13:51 | Progress Note ---
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 --SIRS Patient presented with tachypnea, elevated lactic acid Possible source of infection likely peritonitis or COVID-19 infection Initiated on Sepsis protocol: CBC, CMP, IV antibiotic therapy, serial lactic acid level, blood culture, maintain mean arterial pressure greater than or equal to 65. IV fluid resuscitation therapy as clinically indicated. Care is taken to avoid fluid overload in patient with end-stage renal disease. Monitor fluid balance. Blood culture negative, peritoneal fluid study pending Continue empiric antibiotics for now Ordered for COVID-19 --Hypotension, resolved Status post gentle IV fluid hydration Continue to hold BP meds --Metabolic acidosis Repeat BMP in a.m., serial lactic acid level, supportive care, treat for possible sepsis. --Hyponatremia Encourage fluid intake, BMP, repeat BMP in a.m. -- GERD (gastroesophageal reflux disease) PPI therapy, supportive care. -- HIV (human immunodeficiency virus infection) Continue current therapy, outpatient infectious disease service follow-up. --End-stage renal disease on peritoneal dialysis Nephrology team consulted in ED, dialysis as per renal team. --Heme positive stool PPI therapy, GI team consulted in ED -recommended outpatient follow-up H&H stable -- DVT prophylaxis SCD to bilateral lower extremities while in bed, continue prehospital therapeutic anticoagulation with Eliquis. --Advance care planning Disease education conducted, care plan discussed, prognosis discussed, patient knowledges understanding and agreement with care plan, +30 minutes. Daily Course: 06/10/20; Continue sepsis protocol for now for possible peritonitis. Wait for peritoneal fluid study results including Gram stain and culture. Continue antibiotics. Noted GI and cardiology recommendation. Possible discharge home if peritoneal fluid study is normal. Subjective Date of service: 06/10/20 Interval history: Patient seen and examined. Medical records and medication list reviewed. No acute event overnight noted by the RN. Patient denies any chest pain or difficulty breathing. Patient is tolerating diet. Discussed plan of care at bedside with patient. Vitals noted and stable Denies any abdominal pain chills or fever Objective - Exam Narrative Exam: Limited physical exam due to COVID-19 pandemic to minimize transmission of the disease and to preserve PPE. Vital reviewed and stable. GENERAL: well-developed well-nourished elderly -[place]ian female lying on bed appeared to be in no discomfort. HEENT: Normocephalic. Atraumatic. NECK: Supple. CHEST/LUNGS: breathing nonlabored. HEART/CARDIOVASCULAR: Heart rate stable on telemetry ABDOMEN: Visibly not distended, PD catheter in place, nontender SKIN: There is no rash NEURO: No focal motor deficit. Follows command. MUSCULOSKELETAL: No joint effusion EXTRIMITY: No swelling, no cyanosis or clubbing. PSYCH: Cooperative. - Constitutional Vitals: Vital Signs - 12hr 06/10/20 06/10/20 06/10/20 04:13 07:38 09:44 Temperature 98.6 F 98.6 F Pulse Rate 93 H 89 Respiratory 16 18 Rate Blood Pressure 130/72 146/75 O2 Sat by Pulse 100 100 94 Oximetry 06/10/20 11:48 Temperature 98.3 F Pulse Rate 100 H Respiratory 18 Rate Blood Pressure 174/93 O2 Sat by Pulse 100 Oximetry - Labs CBC & Chem 7: 06/10/20 05:06 06/10/20 05:06 Labs: Abnormal lab results 06/09/20 06/09/20 06/09/20 Range/Units 14:22 14:22 19:37 RBC (3.65-5.03) M/mm3 Hgb (10.1-14.3) gm/dl Hct (30.3-42.9) % MCV (79-97) fl MCH (28-32) pg RDW (13.2-15.2) % [place] % (Auto) (0.0-7.3) % Eos % (Auto) (0.0-4.3) % [place] # (Auto) (0.0-0.8) K/mm3 Sodium (137-145) mmol/L Chloride (98-107) mmol/L Carbon Dioxide (22-30) mmol/L BUN (7-17) mg/dL Creatinine (0.6-1.2) mg/dL Lactic Acid 4.40 H* 2.90 H* (0.7-2.0) mmol/L Troponin T 0.070 H (0.00-0.029) ng/mL 06/10/20 06/10/20 Range/Units 05:06 05:06 RBC 2.64 L (3.65-5.03) M/mm3 Hgb 8.8 L (10.1-14.3) gm/dl Hct 26.9 L (30.3-42.9) % MCV 102 H (79-97) fl MCH 33 H (28-32) pg RDW 24.9 H (13.2-15.2) % [place] % (Auto) 12.6 H (0.0-7.3) % Eos % (Auto) 4.6 H (0.0-4.3) % [place] # (Auto) 1.0 H (0.0-0.8) K/mm3 Sodium 132 L (137-145) mmol/L Chloride 96.0 L (98-107) mmol/L Carbon Dioxide 20 L (22-30) mmol/L BUN 36 H (7-17) mg/dL Creatinine 11.1 H (0.6-1.2) mg/dL Lactic Acid (0.7-2.0) mmol/L Troponin T (0.00-0.029) ng/mL HEART Score - HEART Score Troponin: Troponin T 0.070 ng/mL (0.00-0.029) H 06/09/20 14:22
[2020-06-10] MEDS ORDERED: traMADol 50 MG TAB PO PRN (14:08)
--- NOTE | 2020-06-10 15:10 | Progress Note ---
Assessment and Plan # ESRD: on PD, continue PD, manual exchanges 2L q6 hours while inpatient (was not aware that PD fluid was on formulary), patient can bring home machine if she prefers, use 1.5% dextrose bags for now given sepsis and likely volume down # Sepsis, Lactic Acidosis: management per primary, lactate improved to 1.4. Ordered PD fluid cell count, culture to rule out peritonitis, please obtain, pending # HIV # HTN: BP stable # Stool Heme Positive: GI consult pending # Anemia in ESRD: hemoglobin at goal for ESRD, no indication for ESAs acutely Subjective Date of service: 06/10/20 Interval history: Resting this AM Objective - Exam Narrative Exam: Constitutional: no acute distress Head: NC/AT Neck: supple Lungs: clear to auscultation CV: RRR, no M/R/G Abdomen: soft, non-tender, bowel sounds present, PD catheter site C/D/I in appearance Back: nontender Extremities: no edema, pulses WNL Skin: intact Neuro: no focal deficits, alert and oriented x4 - Vital Signs Vital signs: Vital Signs - 12hr 06/10/20 06/10/20 06/10/20 04:13 07:38 09:44 Temperature 98.6 F 98.6 F Pulse Rate 93 H 89 Respiratory 16 18 Rate Blood Pressure 130/72 146/75 O2 Sat by Pulse 100 100 94 Oximetry 06/10/20 11:48 Temperature 98.3 F Pulse Rate 100 H Respiratory 18 Rate Blood Pressure 174/93 O2 Sat by Pulse 100 Oximetry - Lab 06/10/20 05:06 06/10/20 05:06 Most recent lab results Calcium 8.5 mg/dL (8.4-10.2) 06/10/20 05:06 Magnesium 2.40 mg/dL (1.7-2.3) H 06/09/20 11:19 Medications & Allergies - Medications Allergies/Adverse Reactions: Allergies Sulfa (Sulfonamide Antibiotics) Allergy (Verified 06/09/20 13:25) Itching sulfamethoxazole [From Bactrim] Allergy (Verified 06/09/20 13:25) Itching trimethoprim [From Bactrim] Allergy (Verified 06/09/20 13:25) Itching Home Medications: Home Medications Medication Instructions Recorded Confirmed Last Taken Type calcitrioL [Rocaltrol] 0.5 mcg PO QDAY #30 capsule 05/26/16 06/09/20 05/13/19 Rx Abacavir [Ziagen TAB] 300 mg PO BID 06/25/16 06/09/20 05/13/19 History Pravastatin [Pravachol] 80 mg PO QHS #30 tablet 11/29/17 06/09/20 05/13/19 Rx Dolutegravir [Tivicay] 1 tab PO DAILY 04/11/19 06/09/20 05/13/19 History Famotidine [Pepcid] 2 tab PO DAILY 04/11/19 06/09/20 05/13/19 History Metoprolol 50 mg PO DAILY 06/07/19 06/09/20 Unknown History Ascorbic Acid [Vitamin C with Lucero 500 mg PO 06/09/20 Unknown History Hips] Aspirin [Adult Aspirin] 81 mg PO DAILY 06/09/20 06/09/20 Unknown History Cholecalciferol (Vitamin D3) 2,000 unit PO DAILY 06/09/20 06/09/20 Unknown History [Vitamin D3 2,000 UNIT CAP] Ferrous Sulfate [Iron 325 MG] 325 mg PO 06/09/20 Unknown History Furosemide [Lasix TAB] 80 mg PO BID 06/09/20 06/09/20 Unknown History Pantoprazole [Protonix] 40 mg PO QDAY 06/09/20 06/09/20 Unknown History Potassium Chloride [K-Dur] 10 meq PO QDAY 06/09/20 06/09/20 Unknown History Sevelamer Carbonate [Renvela] 800 mg PO TIDWM 06/09/20 06/09/20 Unknown History Sodium Bicarbonate 650 mg PO BID 06/09/20 06/09/20 Unknown History Umeclidinium Brm/Vilanterol Tr 1 each IH DAILY 06/09/20 06/09/20 Unknown History [Anoro Ellipta 62.5-25 Mcg INH] Vitamin E 1,000 unit PO 06/09/20 Unknown History diazePAM TAB [Valium] 5 mg PO TID PRN 06/09/20 06/09/20 Unknown History lamiVUDine [Lamivudine] 150 mg PO DAILY 06/09/20 06/09/20 Unknown History lamiVUDine [Lamivudine] 150 mg PO DAILY 06/09/20 06/09/20 Unknown History traMADoL [Ultram] 50 mg PO Q4HR PRN 06/09/20 06/09/20 Unknown History Active Medications: Generic Name Dose Route Start Last Admin Trade Name Freq PRN Reason Stop Dose Admin Abacavir Sulfate 300 mg 06/09/20 22:00 06/10/20 10:24 Abacavir 300 Mg Tab PO 300 mg BID NIKITA Administration Acetaminophen 650 mg 06/09/20 12:52 06/10/20 04:27 Acetaminophen 325 Mg Tab PO 650 mg Q4H PRN Administration Pain MILD(1-3)/Fever >100.5/RUTH Ascorbic Acid 500 mg 06/11/20 10:00 Ascorbic Acid 500 Mg Tab PO QDAY [facility] Aspirin 81 mg 06/11/20 10:00 Aspirin Ec 81 Mg Tab PO DAILY NIKITA Calcitriol 0.5 mcg 06/10/20 10:00 06/10/20 10:00 Calcitriol 0.5 Mcg Cap PO 0.5 mcg QDAY NIKITA Administration Cholecalciferol 2,000 unit 06/11/20 10:00 Cholecalciferol (Vit D3) 1000 Unit (25 Mcg) Tab PO DAILY [facility] Cinacalcet 30 mg 06/10/20 10:00 06/10/20 10:00 Cinacalcet 30 Mg Tab PO 30 mg QDAY NIKITA Administration Ferrous Gluconate 324 mg 06/10/20 10:00 06/10/20 12:33 Ferrous Gluconate 324 Mg Tab PO 324 mg QDAY [facility] Administration Ferrous Sulfate 325 mg 06/11/20 10:00 Ferrous Sulfate 325 Mg Tab PO DAILY [facility] Furosemide 80 mg 06/10/20 22:00 Furosemide 40 Mg Tab PO BID [facility] Hydromorphone HCl 0.25 mg 06/09/20 12:53 Hydromorphone 1 Mg/1 Ml Inj IV Q4H PRN Pain, Moderate (4-6) Ceftriaxone Sodium 1 gm in 50 mls @ 100 mls/hr 06/10/20 10:00 06/10/20 10:01 Rocephin/Ns 1 Gm/50 Ml IV 100 mls/hr Q24H NIKITA Administration Protocol Lamivudine 25 mg 06/10/20 10:00 06/10/20 10:24 Lamivudine 50 Mg/5 Ml Oral Liqd PO 25 mg QDAY NIKITA Administration Miscellaneous Medication 1 each 06/11/20 10:00 Umeclidinium Brm/Vilanterol Tr [Anoro Ellipta 62.5-25 Mcg Inh] IH DAILY [facility] Miscellaneous Medication 1,000 unit 06/11/20 10:00 Vitamin E [Vitamin E] PO DAILY [facility] Ondansetron HCl 4 mg 06/09/20 12:52 Ondansetron 4 Mg/2 Ml Inj IV Q8H PRN Nausea And Vomiting Ondansetron HCl 4 mg 06/09/20 12:56 Ondansetron 4 Mg Odt Tab PO Q8HR PRN Nausea Pantoprazole Sodium 40 mg 06/11/20 10:00 Pantoprazole 40 Mg Tab PO QDAY [facility] Peritoneal Dialysis Solution 2,000 ml 06/10/20 18:00 Dialysate Pd2 1.5% Soln 2000 Ml IP Q6HR [facility] Polyethylene Glycol 17 gm 06/10/20 10:00 06/10/20 10:01 Polyethylene Glycol 3350 17 Gm Powder PO 17 gm QDAY [facility] Administration Potassium Chloride 10 meq 06/11/20 10:00 Potassium Chloride Er 10 Meq Tab PO QDAY [facility] Pravastatin Sodium 80 mg 06/09/20 22:00 06/09/20 22:00 Pravastatin 80 Mg Tab PO 80 mg QHS [facility] Administration Sevelamer Carbonate 800 mg 06/10/20 17:00 Sevelamer Carbonate 800 Mg Tab PO TIDWM [facility] Sodium Bicarbonate 650 mg 06/10/20 22:00 Sodium Bicarbonate 650 Mg Tab PO BID [facility] Sodium Chloride 10 ml 06/09/20 22:00 06/10/20 10:01 Sodium Chloride 0.9% 10 Ml Flush Syringe IV 10 ml BID NIKITA Administration Sodium Chloride 10 ml 06/09/20 12:52 Sodium Chloride 0.9% 10 Ml Flush Syringe IV PRN PRN LINE FLUSH Tramadol HCl 50 mg 06/10/20 14:08 Tramadol 50 Mg Tab PO Q6H PRN Pain, Moderate (4-6)
[2020-06-10] MEDS ORDERED: DIALYSATE PD2 1.5% SOLN 2000 ML IP SCH (18:00)
[2020-06-10] MEDS: PRAVASTATIN 80 MG TAB PO SCH (21:26)
[2020-06-10] MEDS: FUROSEMIDE 40 MG TAB PO SCH (21:26)
[2020-06-10] MEDS: SODIUM BICARBONATE 650 MG TAB PO SCH (21:26)
[2020-06-10] MEDS ORDERED: NON-FORMULARY EACH (Furosemide [Lasix Tab] 80 MG Tablet) PO SCH (22:00)
[2020-06-10] MEDS ORDERED: CALCIUM CARBONATE 500 MG TAB CHEW PO SCH (22:00)
[2020-06-10] MEDS: DIALYSATE LO CAL 1.5% SOLN 2000 ML IP SCH (23:58)
[2020-06-11] MEDS ORDERED: diazePAM 5 MG TAB PO PRN (00:13)
[2020-06-11] MEDS ORDERED: hydrALAZINE 20 MG/1 ML INJ IV PRN (03:46)
[2020-06-11] MEDS: ONDANSETRON 4 MG/2 ML INJ IV PRN ×2 (06:08→12:18)
[2020-06-11] MEDS: DIALYSATE LO CAL 1.5% SOLN 2000 ML IP SCH ×3 (06:15→17:48)
[2020-06-11] MEDS ORDERED: ASPIRIN EC 81 MG TAB PO SCH (10:00)
[2020-06-11] MEDS ORDERED: TOCOPHEROL 200 UNIT CAP PO SCH (10:00)
[2020-06-11] MEDS ORDERED: FERROUS SULFATE 325 MG TAB PO SCH (10:00)
[2020-06-11] MEDS ORDERED: CHOLECALCIFEROL (VIT D3) 1000 UNIT (25 mcg) TAB PO SCH (10:00)
[2020-06-11] MEDS ORDERED: NON-FORMULARY EACH (Cholecalciferol (Vitamin D3) [Vitamin D3 2,000 Unit Cap] 2,000 UNIT Ca PO SCH (10:00)
[2020-06-11] MEDS ORDERED: PANTOPRAZOLE 40 MG TAB PO SCH (10:00)
[2020-06-11] MEDS ORDERED: ASCORBIC ACID 500 MG TAB PO SCH (10:00)
[2020-06-11] MEDS ORDERED: ASCORBIC ACID 500 MG PO SCH (10:00)
[2020-06-11] MEDS ORDERED: POTASSIUM CHLORIDE ER 10 MEQ TAB PO SCH (10:00)
[2020-06-11] MEDS ORDERED: NON-FORMULARY EACH (Vitamin E [Vitamin E] 1,000 UNIT Capsule) PO SCH (10:00)
[2020-06-11] MEDS: SODIUM BICARBONATE 650 MG TAB PO SCH (10:26)
[2020-06-11] MEDS: ABACAVIR 300 MG TAB PO SCH (10:26)
[2020-06-11] MEDS: lamiVUDine 50 MG/5 ML ORAL LIQD PO SCH (10:26)
[2020-06-11] MEDS: DOLUTEGRAVIR 50 MG TAB PO SCH (10:27)
[2020-06-11] MEDS: CALCITRIOL 0.5 MCG CAP PO SCH (10:28)
[2020-06-11] MEDS: POLYETHYLENE GLYCOL 3350 17 GM POWDER PO SCH (10:28)
[2020-06-11] MEDS: FUROSEMIDE 40 MG TAB PO SCH (10:28)
[2020-06-11] MEDS: SEVELAMER CARBONATE 800 MG TAB PO SCH ×3 (10:28→16:35)
[2020-06-11] MEDS: CINACALCET 30 MG TAB PO SCH (10:28)
[2020-06-11] MEDS: cefTRIAXone/NS 1 GM/50 ML 1 GM/50 ML BAG IV SCH (10:44)
[2020-06-11 12:14] LABS: Total Cells Counted 100 /mm3
--- NOTE | 2020-06-11 14:28 | Discharge Summary ---
Providers - Providers Date of Admission: 06/09/20 12:52 Date of discharge: 06/11/20 Attending physician: KENNETH SILVA 06/09/20 12:29 Consult to Physician [CONS] Urgent Comment: Consulting Provider: MELBA JENKINS Physician Instructions: Reason For Exam: esrd Consult to Physician [CONS] Urgent Comment: Consulting Provider: ELIE VERDUZCO Physician Instructions: Reason For Exam: tachyarrhythmia 06/09/20 12:54 Consult to Physician [CONS] Urgent Comment: Consulting Provider: TREVIN ABDUL Physician Instructions: Reason For Exam: anemia guiac + stool 06/11/20 10:27 Physical Therapy Evaluation and Treat [CONS] Routine Comment: Reason For Exam: debility Mode of Transport?: Wheelchair Primary care physician: MANAGER E[facility] Hospitalization Condition: Good Hospital course: 84 YO Female with HIV Disease, HTN, GERD, CHF, HLD, COPD, ESRD on Daily PD, Vascular Dementia, Cerebral Atherosclerosis, R IJV DVT on therapeutic anticoagulation presents to ED for evaluation of generalized weakness, shaking chills, low blood pressure over the past 1 day. In the ER patient noted to be tachycardic with heart rate of 149, blood pressure 81/49, lactic acid of 2.8 which increase up to 4.4. Patient given gentle IV fluid hydration which improved her blood pressure, blood culture obtained which was negative. Lactic acidosis resolved. Patient started on empiric antibiotic for suspicion of peritonitis as patient on peritoneal dialysis. Peritoneal fluid studies showed WBC count of 143. Patient was also tested for COVID-19 and it was negative. Patient clinically improved, GI was consulted for him positive stool and recommended outpatient follow-up. Patient was then discharged home in stable condition. Discharge diagnosis: SIRS, patient presented with tachypnea, elevated lactic acid and hypotension. Likely due to peritonitis Hypotension, resolved with fluid hydration -Echo done 01/2020 showed EF 55-60%, mod to severe MR, mild to mod TR, RVSP 27mmHg. -Lexiscan MPI stress test done 08/2018 was negative. Hypertension, resume home meds Metabolic acidosis, resolved Hyponatremia, resolved GERD continue PPI HIV continue antiretroviral medications and outpatient follow-up End-stage renal disease on peritoneal dialysis Heme positive stool/history of GI bleed with AVM -continue PPI therapy, outpatient follow-up with GI Disposition: TO HOME OR SELFCARE Time spent for discharge: 34 minutes Core Measure Documentation - Palliative Care Palliative Care/ Comfort Measures: Not Applicable - Core Measures Any of the following diagnoses?: none Exam - Physical Exam Narrative exam: GENERAL: well-developed well-nourished elderly -[place]ren[place] female lying on bed appeared to be in no discomfort. HEENT: Normocephalic. Atraumatic. NECK: Supple. CHEST/LUNGS: breathing nonlabored. HEART/CARDIOVASCULAR: Heart rate stable on telemetry ABDOMEN: Visibly not distended, PD catheter in place, nontender SKIN: There is no rash NEURO: No focal motor deficit. Follows command. MUSCULOSKELETAL: No joint effusion EXTRIMITY: No swelling, no cyanosis or clubbing. PSYCH: Cooperative. - Constitutional Vitals: Temp Pulse Resp BP Pulse Ox 97.9 F 108 H 19 138/77 100 06/11/20 12:32 06/11/20 12:32 06/11/20 12:32 06/11/20 12:32 06/11/20 12:32 Plan Activity: fall precautions Weight Bearing Status: Non-Weight Bearing Diet: low fat, low salt Special Instructions: record daily BP diary Additional Instructions: Follow up in [place] office with Dr. Mercado on 06/15/2020 @ 3:30PM. Follow up with: PRIMARY CARE, [Primary Care Provider] - 3-5 Days Prescriptions: levoFLOXacin [Levaquin] 250 mg PO QDAY #3 tablet Metoprolol [Lopressor TAB] 25 mg PO BID #60 tablet
[2020-06-11] MEDS ORDERED: METOPROLOL TARTRATE 25 MG TAB PO SCH (15:00)
--- NOTE | 2020-06-11 16:09 | Progress Note ---
Assessment and Plan # ESRD: on PD, continue PD, manual exchanges 2L q6 hours while inpatient (was not aware that PD fluid was on formulary), patient can bring home machine if she prefers, use 1.5% dextrose bags for now given sepsis and likely volume down # Sepsis, Lactic Acidosis: management per primary, lactate improved to 1.4. Ordered PD fluid cell count, culture to rule out peritonitis; WBC high at 143 which may be suggestive of peritonitis, culture pending, would continue to treat for peritonitis. Once culture finalized, can arrange IP antibiotics # HIV # HTN: BP stable # Stool Heme Positive: GI consult pending # Anemia in ESRD: hemoglobin at goal for ESRD, no indication for ESAs acutely Subjective Date of service: 06/11/20 Interval history: Resting this AM Objective - Exam Narrative Exam: Constitutional: no acute distress Head: NC/AT Neck: supple Lungs: clear to auscultation CV: RRR, no M/R/G Abdomen: soft, non-tender, bowel sounds present, PD catheter site C/D/I in appearance Back: nontender Extremities: no edema, pulses WNL Skin: intact Neuro: no focal deficits, alert and oriented x4 - Vital Signs Vital signs: Vital Signs - 12hr 06/11/20 06/11/20 06/11/20 08:28 08:47 12:32 Temperature 98.0 F 97.9 F Pulse Rate 123 H 108 H Respiratory 19 Rate Blood Pressure 108/60 138/77 O2 Sat by Pulse 99 98 100 Oximetry 06/11/20 13:00 Temperature Pulse Rate Respiratory 17 Rate Blood Pressure O2 Sat by Pulse 98 Oximetry - Lab 06/10/20 05:06 06/10/20 05:06 Most recent lab results Calcium 8.5 mg/dL (8.4-10.2) 06/10/20 05:06 Magnesium 2.40 mg/dL (1.7-2.3) H 06/09/20 11:19 Medications & Allergies - Medications Allergies/Adverse Reactions: Allergies Sulfa (Sulfonamide Antibiotics) Allergy (Verified 06/09/20 13:25) Itching sulfamethoxazole [From Bactrim] Allergy (Verified 06/09/20 13:25) Itching trimethoprim [From Bactrim] Allergy (Verified 06/09/20 13:25) Itching Home Medications: Home Medications Medication Instructions Recorded Confirmed Last Taken Type calcitrioL [Rocaltrol] 0.5 mcg PO QDAY #30 capsule 05/26/16 06/09/20 05/13/19 Rx Abacavir [Ziagen TAB] 300 mg PO BID 06/25/16 06/09/20 05/13/19 History Pravastatin [Pravachol] 80 mg PO QHS #30 tablet 11/29/17 06/09/20 05/13/19 Rx Dolutegravir [Tivicay] 1 tab PO DAILY 04/11/19 06/09/20 05/13/19 History Famotidine [Pepcid] 2 tab PO DAILY 04/11/19 06/09/20 05/13/19 History Ascorbic Acid [Vitamin C with Lucero 500 mg PO DAILY 06/09/20 06/11/20 Unknown History Hips] Aspirin [Adult Aspirin] 81 mg PO DAILY 06/09/20 06/09/20 Unknown History Cholecalciferol (Vitamin D3) 2,000 unit PO DAILY 06/09/20 06/09/20 Unknown History [Vitamin D3 2,000 UNIT CAP] Ferrous Sulfate [Iron 325 MG] 325 mg PO DAILY 06/09/20 06/11/20 Unknown History Furosemide [Lasix TAB] 80 mg PO BID 06/09/20 06/09/20 Unknown History Pantoprazole [Protonix TAB] 40 mg PO QDAY 06/09/20 06/09/20 Unknown History Potassium Chloride [K-Dur] 10 meq PO QDAY 06/09/20 06/09/20 Unknown History Sevelamer Carbonate [Renvela] 800 mg PO TIDWM 06/09/20 06/09/20 Unknown History Sodium Bicarbonate 650 mg PO BID 06/09/20 06/09/20 Unknown History Umeclidinium Brm/Vilanterol Tr 1 each IH DAILY 06/09/20 06/09/20 Unknown History [Anoro Ellipta 62.5-25 Mcg INH] Vitamin E 1,000 unit PO DAILY 06/09/20 06/11/20 Unknown History diazePAM TAB [Valium] 5 mg PO TID PRN 06/09/20 06/09/20 Unknown History lamiVUDine [Lamivudine] 150 mg PO DAILY 06/09/20 06/09/20 Unknown History lamiVUDine [Lamivudine] 150 mg PO DAILY 06/09/20 06/09/20 Unknown History traMADoL [Ultram 50 MG tab] 50 mg PO Q4HR PRN 06/09/20 06/09/20 Unknown History Metoprolol [Lopressor TAB] 25 mg PO BID #60 tablet 06/11/20 Unknown Rx levoFLOXacin [Levaquin] 250 mg PO QDAY #3 tablet 06/11/20 Unknown Rx Active Medications: Generic Name Dose Route Start Last Admin Trade Name Freq PRN Reason Stop Dose Admin Abacavir Sulfate 300 mg 06/09/20 22:00 06/11/20 10:26 Abacavir 300 Mg Tab PO 300 mg BID NIKITA Administration Acetaminophen 650 mg 06/09/20 12:52 06/10/20 04:27 Acetaminophen 325 Mg Tab PO 650 mg Q4H PRN Administration Pain MILD(1-3)/Fever >100.5/RUTH Ascorbic Acid 500 mg 06/11/20 10:00 06/11/20 10:29 Ascorbic Acid 500 Mg Tab PO 500 mg QDAY NIKITA Administration Aspirin 81 mg 06/11/20 10:00 06/11/20 10:27 Aspirin Ec 81 Mg Tab PO 81 mg DAILY NIKITA Administration Calcitriol 0.5 mcg 06/10/20 10:00 06/11/20 10:28 Calcitriol 0.5 Mcg Cap PO 0.5 mcg QDAY NIKITA Administration Calcium Carbonate/Glycine 1,000 mg 06/10/20 22:00 06/10/20 21:26 Calcium Carbonate 500 Mg Tab Chew PO 1,000 mg QHS NIKITA Administration Cholecalciferol 2,000 unit 06/11/20 10:00 06/11/20 10:25 Cholecalciferol (Vit D3) 1000 Unit (25 Mcg) Tab PO 2,000 unit DAILY NIKITA Administration Cinacalcet 30 mg 06/10/20 10:00 06/11/20 10:28 Cinacalcet 30 Mg Tab PO 30 mg QDAY NIKITA Administration Diazepam 5 mg 06/11/20 00:13 06/11/20 00:43 Diazepam 5 Mg Tab PO 5 mg Q8H PRN Administration Anxiety Ferrous Sulfate 325 mg 06/11/20 10:00 06/11/20 10:27 Ferrous Sulfate 325 Mg Tab PO 325 mg DAILY NIKITA Administration Furosemide 80 mg 06/10/20 22:00 06/11/20 10:28 Furosemide 40 Mg Tab PO 80 mg BID NIKITA Administration Hydralazine HCl 5 mg 06/11/20 03:46 06/11/20 03:57 Hydralazine 20 Mg/1 Ml Inj IV 5 mg Q4HR PRN Administration Hypertension Hydromorphone HCl 0.25 mg 06/09/20 12:53 Hydromorphone 1 Mg/1 Ml Inj IV Q4H PRN Pain, Moderate (4-6) Ceftriaxone Sodium 1 gm in 50 mls @ 100 mls/hr 06/10/20 10:00 06/11/20 10:44 Rocephin/Ns 1 Gm/50 Ml IV 100 mls/hr Q24H NIKITA Administration Protocol Lamivudine 25 mg 06/10/20 10:00 06/11/20 10:26 Lamivudine 50 Mg/5 Ml Oral Liqd PO 25 mg QDAY [facility] Administration Metoprolol Tartrate 25 mg 06/11/20 15:00 Metoprolol Tartrate 25 Mg Tab PO BID [facility] Miscellaneous Medication 1 each 06/11/20 10:00 Umeclidinium Brm/Vilanterol Tr [Anoro Ellipta 62.5-25 Mcg Inh] IH DAILY [facility] Ondansetron HCl 4 mg 06/09/20 12:52 06/11/20 06:08 Ondansetron 4 Mg/2 Ml Inj IV 4 mg Q8H PRN Administration Nausea And Vomiting Ondansetron HCl 4 mg 06/09/20 12:56 Ondansetron 4 Mg Odt Tab PO Q8HR PRN Nausea Pantoprazole Sodium 40 mg 06/11/20 10:00 06/11/20 10:28 Pantoprazole 40 Mg Tab PO 40 mg QDAY [facility] Administration Peritoneal Dialysis Solution 2,000 ml 06/10/20 18:00 06/11/20 12:45 Dialysate [place] 1.5% Soln 2000 Ml IP Not Given Q6HR [facility] Peritoneal Dialysis Solution 2,000 ml 06/11/20 18:00 Dialysate Pd2 1.5% Soln 2000 Ml IP Q6H [facility] Polyethylene Glycol 17 gm 06/10/20 10:00 06/11/20 10:28 Polyethylene Glycol 3350 17 Gm Powder PO 17 gm QDAY NIKITA Administration Potassium Chloride 10 meq 06/11/20 10:00 06/11/20 10:29 Potassium Chloride Er 10 Meq Tab PO 10 meq QDAY [facility] Administration Pravastatin Sodium 80 mg 06/09/20 22:00 06/10/20 21:26 Pravastatin 80 Mg Tab PO 80 mg QHS NIKITA Administration Sevelamer Carbonate 800 mg 06/10/20 17:00 06/11/20 12:45 Sevelamer Carbonate 800 Mg Tab PO Not Given TIDWM NIKITA Sodium Bicarbonate 650 mg 06/10/20 22:00 06/11/20 10:26 Sodium Bicarbonate 650 Mg Tab PO 650 mg BID NIKITA Administration Sodium Chloride 10 ml 06/09/20 22:00 06/11/20 10:30 Sodium Chloride 0.9% 10 Ml Flush Syringe IV 10 ml BID NIKITA Administration Sodium Chloride 10 ml 06/09/20 12:52 Sodium Chloride 0.9% 10 Ml Flush Syringe IV PRN PRN LINE FLUSH Tramadol HCl 50 mg 06/10/20 14:08 Tramadol 50 Mg Tab PO Q6H PRN Pain, Moderate (4-6) Vitamin E 1,000 unit 06/11/20 10:00 06/11/20 10:27 Tocopherol 200 Unit Cap PO 1,000 unit QDAY NIKITA Administration
[2020-06-11 16:35] VITALS: BP 127/58
[2020-06-11] MEDS ORDERED: DIALYSATE PD2 1.5% SOLN 2000 ML IP SCH (18:00)
== END 2020-06-11 18:03 | disposition home or self-care (01) ==
LOC: ED 10:57 → INTOOBSV 12:52 → 4A 12:52
PROVIDERS: ADMIT Internal Medicine; ATTEND Internal Medicine
DX: A41.9 Sepsis, unspecified organism (principal); Z20.822 Contact with and (suspected) exposure to COVID-19; I13.2 Hypertensive heart and chronic kidney disease with heart failure and with stage 5 chronic kidney disease, or end stage renal disease; I50.9 Heart failure, unspecified; N18.6 End stage renal disease; D63.1 Anemia in chronic kidney disease; I95.9 Hypotension, unspecified; E87.2 Acidosis; E87.1 Hypo-osmolality and hyponatremia; K21.9 Gastro-esophageal reflux disease without esophagitis; K92.2 Gastrointestinal hemorrhage, unspecified; J44.9 Chronic obstructive pulmonary disease, unspecified; I73.9 Peripheral vascular disease, unspecified; E78.5 Hyperlipidemia, unspecified; R77.8 Other specified abnormalities of plasma proteins; I34.0 Nonrheumatic mitral (valve) insufficiency; R19.5 Other fecal abnormalities; R56.9 Unspecified convulsions; R00.0 Tachycardia, unspecified; Z21 Asymptomatic human immunodeficiency virus [HIV] infection status; Z99.2 Dependence on renal dialysis; Z90.49 Acquired absence of other specified parts of digestive tract; Z98.890 Other specified postprocedural states; Z95.1 Presence of aortocoronary bypass graft; Z79.82 Long term (current) use of aspirin; Z86.73 Personal history of transient ischemic attack (TIA), and cerebral infarction without residual deficits
CPT/HCPCS: 36415; 71046; 80048; 80053; 80061; 80202; 82040; 82140; 82150; 82550; 82947; 83605; 83735; 84443; 84484; 85025; 85610; 85730; 86850; 86900; 86901; 87040; 87116; 87641; 89051; 93005; 96365; 96366; 96367; 96375; 99291; A9270; C9113; G0378; J0360; J0696; J2405; J3370; J7030; J7120; U0003

== ENCOUNTER 2020-07-07 08:11 | Outpatient (CLI) | payer MEDICARE ==
[2020-07-07] MEDS ORDERED: LIDOCAINE (4%) 40 MG/ML TOPICAL SOLN 50 ML BOTTLE TP ONE (08:18)
== END 2020-07-07 08:12 | disposition home or self-care (01) ==
LOC: WOUND 08:11
PROVIDERS: ATTEND Surgery
DX: I70.245 Atherosclerosis of native arteries of left leg with ulceration of other part of foot (principal); L97.523 Non-pressure chronic ulcer of other part of left foot with necrosis of muscle; I10 Essential (primary) hypertension; J44.9 Chronic obstructive pulmonary disease, unspecified; E11.51 Type 2 diabetes mellitus with diabetic peripheral angiopathy without gangrene; F41.9 Anxiety disorder, unspecified; Z99.2 Dependence on renal dialysis; Z90.49 Acquired absence of other specified parts of digestive tract; Z79.82 Long term (current) use of aspirin; Z86.73 Personal history of transient ischemic attack (TIA), and cerebral infarction without residual deficits; Z87.891 Personal history of nicotine dependence
CPT/HCPCS: 11043; G0463; 99205; 99215

== ENCOUNTER 2020-07-15 09:11 | Outpatient (CLI) | payer MEDICARE ==
[2020-07-15] MEDS ORDERED: LIDOCAINE (4%) 40 MG/ML TOPICAL SOLN 50 ML BOTTLE TP ONE (09:27)
[2020-07-15] MEDS ORDERED: SILVER NITRATE APPLICATOR 1 EA TP ONE (09:40)
== END 2020-07-15 09:12 | disposition home or self-care (01) ==
LOC: WOUND 09:11
PROVIDERS: ATTEND Surgery
DX: I70.245 Atherosclerosis of native arteries of left leg with ulceration of other part of foot (principal); L97.523 Non-pressure chronic ulcer of other part of left foot with necrosis of muscle; L84 Corns and callosities; I10 Essential (primary) hypertension; J44.9 Chronic obstructive pulmonary disease, unspecified; E11.51 Type 2 diabetes mellitus with diabetic peripheral angiopathy without gangrene; F41.9 Anxiety disorder, unspecified; Z99.2 Dependence on renal dialysis; Z90.49 Acquired absence of other specified parts of digestive tract; Z79.82 Long term (current) use of aspirin; Z86.73 Personal history of transient ischemic attack (TIA), and cerebral infarction without residual deficits; Z87.891 Personal history of nicotine dependence

== ENCOUNTER 2020-07-16 12:56 | Outpatient (CLI) | payer MEDICARE ==
--- NOTE | 2020-07-16 14:11 | Cat Scan Report ---
CT LEFT LOWER EXTREMITY WITHOUT CONTRAST INDICATION : Left foot pain, pain in left toe. No history of trauma. TECHNIQUE: Axial imaging performed through the left foot and ankle without the use of contrast. All CT scans at this location are performed using CT dose reduction for ALARA by means of automated expo sure control. COMPARISON: None FINDINGS: Moderate to severe osteopenia is evident. No evidence for acute fracture, bone lesion or dede ny destruction. Chronic healed deformity of the distal left fibula is noted, correlate with history. Mild osteoarthritic changes are identified at the first metatarsophalangeal joint. No erosive joint p athology. The soft tissues are unremarkable. IMPRESSION: No acute abnormality is detected. Osteopenia. Mild degenerative changes at the first meta tarsophalangeal joint. Signer Name: Adi Molina Jr, MD Signed: 07/16/2020 2:07 PM Workstation Name: [id number]
== END 2020-07-16 12:57 | disposition home or self-care (01) ==
LOC: CT 12:56
PROVIDERS: ATTEND Surgery
DX: M19.072 Primary osteoarthritis, left ankle and foot (principal); L97.523 Non-pressure chronic ulcer of other part of left foot with necrosis of muscle; M85.862 Other specified disorders of bone density and structure, left lower leg

== ENCOUNTER 2020-07-29 08:36 | Outpatient (CLI) | payer MEDICARE ==
[2020-07-29] MEDS ORDERED: LIDOCAINE (4%) 40 MG/ML TOPICAL SOLN 50 ML BOTTLE TP SCH (09:00)
== END 2020-07-29 08:37 | disposition home or self-care (01) ==
LOC: WOUND 08:36
PROVIDERS: ATTEND Surgery
DX: I70.245 Atherosclerosis of native arteries of left leg with ulceration of other part of foot (principal); L97.523 Non-pressure chronic ulcer of other part of left foot with necrosis of muscle; L84 Corns and callosities; I10 Essential (primary) hypertension; J44.9 Chronic obstructive pulmonary disease, unspecified; F41.9 Anxiety disorder, unspecified; Z99.2 Dependence on renal dialysis; Z90.49 Acquired absence of other specified parts of digestive tract; Z79.82 Long term (current) use of aspirin; Z86.73 Personal history of transient ischemic attack (TIA), and cerebral infarction without residual deficits; Z87.891 Personal history of nicotine dependence

== ENCOUNTER 2020-08-12 13:04 | Outpatient (CLI) | payer MEDICARE ==
[2020-08-12] MEDS ORDERED: LIDOCAINE (4%) 40 MG/ML TOPICAL SOLN 50 ML BOTTLE TP ONE (14:07)
== END 2020-08-12 13:05 | disposition home or self-care (01) ==
LOC: WOUND 13:04
PROVIDERS: ATTEND Surgery
DX: I70.245 Atherosclerosis of native arteries of left leg with ulceration of other part of foot (principal); L97.523 Non-pressure chronic ulcer of other part of left foot with necrosis of muscle; L84 Corns and callosities; I10 Essential (primary) hypertension; J44.9 Chronic obstructive pulmonary disease, unspecified; F41.9 Anxiety disorder, unspecified; Z99.2 Dependence on renal dialysis; Z90.49 Acquired absence of other specified parts of digestive tract; Z79.82 Long term (current) use of aspirin; Z86.73 Personal history of transient ischemic attack (TIA), and cerebral infarction without residual deficits; Z87.891 Personal history of nicotine dependence

== ENCOUNTER 2020-08-26 10:38 | Outpatient (CLI) | payer MEDICARE ==
[2020-08-26] MEDS ORDERED: LIDOCAINE (4%) 40 MG/ML TOPICAL SOLN 50 ML BOTTLE TP ONE (10:41)
== END 2020-08-26 10:39 | disposition home or self-care (01) ==
LOC: WOUND 10:38
PROVIDERS: ATTEND Surgery
DX: I70.245 Atherosclerosis of native arteries of left leg with ulceration of other part of foot (principal); L97.523 Non-pressure chronic ulcer of other part of left foot with necrosis of muscle; L84 Corns and callosities; I10 Essential (primary) hypertension; J44.9 Chronic obstructive pulmonary disease, unspecified; F41.9 Anxiety disorder, unspecified; Z99.2 Dependence on renal dialysis; Z90.49 Acquired absence of other specified parts of digestive tract; Z79.82 Long term (current) use of aspirin; Z86.73 Personal history of transient ischemic attack (TIA), and cerebral infarction without residual deficits; Z87.891 Personal history of nicotine dependence

== ENCOUNTER 2020-09-09 13:15 | Outpatient (CLI) | payer MEDICARE | END 2020-09-09 13:16 | disposition home or self-care (01) | LOC: WOUND 13:15 | PROVIDERS: ATTEND Surgery | DX: I70.245 Atherosclerosis of native arteries of left leg with ulceration of other part of foot (principal); L97.528 Non-pressure chronic ulcer of other part of left foot with other specified severity; I70.262 Atherosclerosis of native arteries of extremities with gangrene, left leg; L84 Corns and callosities; I10 Essential (primary) hypertension; J44.9 Chronic obstructive pulmonary disease, unspecified; F41.9 Anxiety disorder, unspecified; Z99.2 Dependence on renal dialysis; Z90.49 Acquired absence of other specified parts of digestive tract; Z79.82 Long term (current) use of aspirin; Z86.73 Personal history of transient ischemic attack (TIA), and cerebral infarction without residual deficits; Z87.891 Personal history of nicotine dependence | CPT/HCPCS: 99212; G0463 ==

== ENCOUNTER 2020-10-03 20:40 | Emergency (ER) | payer MEDICARE ==
[2020-10-03 21:57] VITALS: BP 125/69
== END 2020-10-03 23:00 | disposition left against medical advice (07) ==
LOC: ED 20:40
DX: E86.0 Dehydration (principal); R03.1 Nonspecific low blood-pressure reading; Z53.21 Procedure and treatment not carried out due to patient leaving prior to being seen by health care provider